=== PATIENT | female | born 1965 | race Hispanic/Latino ===

== ENCOUNTER 2018-03-15 06:11 | Emergency (ER) | payer SELFPAY ==
[2018-03-15] MEDS ORDERED: NA CHLORIDE 0.9% 1,000 ML ONE (06:30)
[2018-03-15] MEDS ORDERED: MORPHINE 4 MG/ML SYR ONE (06:30)
[2018-03-15] MEDS ORDERED: ONDANSETRON 4 MG/2 ML VIAL ONE (06:31)
[2018-03-15 06:54] LABS: Absolute Lymphocytes (CBC) 1.8 K/uL (0.7-4.9); Absolute Monocytes 0.5 K/uL (0.1-1.3); Absolute Neutrophil 6.6 K/uL (1.8-8.0); Eosinophils % 3.7 % (0-4.4); Lymphocytes % 19.5 % (15.3-44.8); MCH 25.8 pg (27.0-35.0); MCV 80.9 fL (80-100); MPV 7.3 fL (7.6-11.3); Monocytes % 5.4 % (3.3-12.3); RBC Red Blood Cell Count 5.32 M/uL (3.86-4.86)
[2018-03-15 07:04] LABS: Potassium 3.4 mEq/L (3.6-5.0)
[2018-03-15 07:10] LABS: Albumin 3.7 g/dL (3.2-5.5); Bilirubin Direct 0.1 mg/dL (0-0.2); Bilirubin Total 0.4 mg/dL (0.3-1.2); Protein, Total 7.7 g/dL (6.0-8.3)
[2018-03-15] MEDS ORDERED: FENTANYL CITR 100 MCG/2 ML ONE (07:14)
--- NOTE | 2018-03-15 09:40 | RAD REPORT ---
EXAM DESCRIPTION: CT - Abdomen Pelvis W Contrast - 03/15/2018 9:21 am CLINICAL HISTORY: Abdominal pain. Right lower quadrant pain for 3 days COMPARISON: None. TECHNIQUE: Computed axial tomography of the abdomen and pelvis was obtained. 100 cc Isovue-300 is ad ministered intravenously. Oral contrast was given. All CT scans are performed using dose optimization technique as appropriate and may include automated exposure control or mA/KV adjustment according to patient size. FINDINGS: Mild fatty infiltration liver is present. Spleen, pancreas, adrenals and kidneys appear unremarkable. The appendix is normal caliber. There is no evidence of diverticulitis A fibroid uterus is seen. A 44 millimeter right ovarian cyst is present. Spondylolysis involves L5 IMPRESSION: 44 millimeter right ovarian cyst without significant free fluid. Followup pelvic ultras ound in a couple months is recommended for re-evaluation. Fibroid uterus
--- NOTE | 2018-03-15 09:49 | ER ---
Nurse's Notes [facility] Name: Alda Paz Age: 52 yrs Sex: Female : 1965 Arrival Date: 03/15/2018 Time: 06:16 Bed 20 Private MD: Diagnosis: Unspecified ovarian cysts Presentation: 03/15 06:25 Presenting complaint: Patient states: RLQ pain x 3 days which radiates to back and down aa1 leg. Pt also states she has not taken her BP medication yet this am but has it with her and will take it now. Transition of care: patient was not received from another setting of care. Onset of symptoms was March 13, 2018. Initial Sepsis Screen: Does the patient meet any 2 criteria? RR > 20 per min. HR > 90 bpm. Yes Does the patient have a suspected source of infection? Yes: Acute abdominal pain. Care prior to arrival: None. 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 - Social history:: Smoking status: Patient/guardian denies using tobacco. Screenin:31 Abuse screen:. Abuse screen: Denies threats or abuse. Denies injuries from another. aa1 Nutritional screening: No deficits noted. Tuberculosis screening: No symptoms or risk factors identified. Fall Risk None identified. Assessment: 06:50 General: Appears uncomfortable, obese, Behavior is anxious, crying. Pain: Complains of bb pain in abdomen Pain currently is 10 out of 10 on a pain scale. Pain began 1 day ago. Neuro: Level of Consciousness is awake, alert, obeys commands, Oriented to person, place, time, situation, Speech is normal, Facial symmetry appears normal. Cardiovascular: Heart tones S1 S2 present Capillary refill < 3 seconds Patient's skin is warm and dry. Pulses are all present. Edema is absent. Respiratory: Airway is patent Respiratory effort is even, unlabored, Respiratory pattern is regular. GI: Abdomen is obese, Bowel sounds present X 4 quads. Abd is soft X 4 quads Abdomen is tender to palpation X 4 quads. : No signs and/or symptoms were reported regarding the genitourinary system. Derm: Skin is pink, warm \T\ dry. Musculoskeletal: Circulation, motion, and sensation intact. 07:02 General: Appears uncomfortable, Behavior is cooperative. Pain: Complains of pain in em right lower quadrant Pain radiates to right low back Pain currently is 7 out of 10 on a pain scale. Neuro: Level of Consciousness is awake, alert, obeys commands, Oriented to person, place, time, situation. Cardiovascular: Capillary refill < 3 seconds Patient's skin is warm and dry. Respiratory: Airway is patent Respiratory effort is even, unlabored, Respiratory pattern is regular, symmetrical. GI: Abdomen is round non-distended. : No signs and/or symptoms were reported regarding the genitourinary system. Derm: Skin is intact, Skin is pink, warm \T\ dry. Musculoskeletal: Circulation, motion, and sensation intact. Range of motion: intact in all extremities. 07:05 Reassessment: I agree with above assessment by ADEBAYO Wallace. iw 07:10 Reassessment: Patient appears in no apparent distress at this time. c/o pain and em morphine not helping, SONAL Chapman notified, new orders received. 07:40 Reassessment: Patient appears in no apparent distress at this time. Patient and/or em family updated on plan of care and expected duration. Pain level reassessed. Patient is alert, oriented x 3, equal unlabored respirations, skin warm/dry/pink. finished drinking PO contrast, CT notified Patient states feeling better. 08:39 Reassessment: Patient appears in no apparent distress at this time. Patient and/or em family updated on plan of care and expected duration. Pain level reassessed. Patient is alert, oriented x 3, equal unlabored respirations, skin warm/dry/pink. Patient states feeling better. 09:34 Reassessment: Patient appears in no apparent distress at this time. Patient and/or em family updated on plan of care and expected duration. Pain level reassessed. Patient is alert, oriented x 3, equal unlabored respirations, skin warm/dry/pink. rates pain 3/10, given warm blanket Patient states feeling better. Vital Signs: 06:30 BP 201 / 102; Pulse 94; Resp 24; Temp 98.5; Pulse Ox 98% on R/A; Weight 97.52 kg; aa1 Height 5 ft. 2 in. (157.48 cm); Pain 9/10; 07:08 BP 182 / 81; Pulse 79; Resp 22; Pulse Ox 97% on R/A; Pain 7/10; em 07:47 BP 140 / 66; Pulse 65; Resp 18; Pulse Ox 95% on R/A; Pain 4/10; em 08:40 BP 138 / 61; Pulse 67; Resp 18; Pulse Ox 99% on R/A; Pain 3/10; em 09:39 BP 155 / 71; Pulse 77; Resp 16; Pulse Ox 99% on R/A; Pain 3/10; em 06:30 Body Mass Index 39.32 (97.52 kg, 157.48 cm) aa1 ED Course: 06:16 Patient arrived in ED. al2 06:19 Ad[facility]NP-C [facility] kb 06:19 oHsea Flowers MD is Attending Physician. kb 06:29 Triage completed. aa1 06:30 Arm band placed on right wrist. Patient placed in an exam room, on a stretcher. aa1 06:31 Patient has correct armband on for positive identification. Bed in low position. Call aa1 light in reach. Pulse ox on. NIBP on. 06:33 Inserted saline lock: 20 gauge in right antecubital area, using aseptic technique. bb Blood collected. 06:35 Initial lab(s) drawn, by ED staff, sent to lab. cc 06:40 Urine collected: clean catch specimen. bb 06:48 Dayanara Recinos, RN is Primary Nurse. bb 07:00 Ultrasound completed. Patient tolerated well. aa4 07:01 Report given to Rodrigo FIORE. bb 07:16 US Transvaginal Study (Probe) In Process Unspecified. EDMS 09:15 CT completed. Patient tolerated procedure well. Patient moved to CT via wheelchair. sj Patient moved back from CT. 09:21 CT Abd/Pelvis - W/Contrast In Process Unspecified. EDMS 10:04 No provider procedures requiring assistance completed. IV discontinued, intact, em bleeding controlled, No redness/swelling at site. Pressure dressing applied. Administered Medications: 06:40 Drug: NS 0.9% 1000 ml Route: IV; Rate: 1000 ml; Site: right antecubital; bb 08:00 Follow up: IV Status: Completed infusion; IV Intake: 1000ml em 06:40 Drug: morphine 4 mg Route: IVP; Site: right antecubital; bb 07:00 Follow up: Response: No adverse reaction; Pain is unchanged, physician notified bb 06:40 Drug: Zofran 4 mg Route: IVP; Site: right antecubital; bb 07:00 Follow up: Response: No adverse reaction bb 07:20 Drug: fentaNYL (PF) 50 mcg Route: IVP; Site: right antecubital; iw 08:02 Follow up: Response: No adverse reaction; Pain is decreased em 09:55 Drug: Potassium Chloride 20 mEq Route: PO; em 10:04 Follow up: Response: Medication administered at discharge. em Intake: 08:00 IV: 1000ml; Total: 1000ml. em Outcome: 09:48 Discharge ordered by MD. kb 10:04 Discharged to home ambulatory. em 10:04 Condition: good 10:04 Discharge instructions given to patient, family, Instructed on discharge instructions, follow up and referral plans. medication usage, Demonstrated understanding of instructions, follow-up care, medications, Prescriptions given X 2. 10:05 Patient left the ED. em Signatures: Dispatcher [employer] EDMS Adela Singh, AIR TECHNICIAN-C AIR TECHNICIAN-CkJoleen Lange RN RN aa1 Lotus Ashley Edgar, MANAGER GROUP HOME MANAGER GROUP HOME em Dayanara Recinos RN RN bb Williams, Irene, RN RN iw Nini Hoff aa4 Trini Hogan, Genesis al2 Corrections: (The following items were deleted from the chart) 09:36 09:34 Reassessment: Patient appears in no apparent distress at this time. Patient em and/or family updated on plan of care and expected duration. Pain level reassessed. Patient is alert, oriented x 3, equal unlabored respirations, skin warm/dry/pink. rates pain 3/10 Patient states feeling better. em
--- NOTE | 2018-03-15 09:49 | EDPHYS ---
Physician Documentation [facility] Name: Alda Paz Age: 52 yrs Sex: Female : 1965 Arrival Date: 03/15/2018 Time: 06:16 Bed 20 Private MD: ED Physician Hosea Flowers HPI: 03/15 06:27 This 52 yrs old Female presents to ER via Unassigned with complaints of kb Abdominal Pain. 06:27 The patient presents with abdominal pain right lower quadrant. Onset: The kb symptoms/episode began/occurred 2 day(s) ago. The symptoms radiate to right back. Associated signs and symptoms: none. The symptoms are described as constant. Modifying factors: The symptoms are alleviated by nothing, the symptoms are aggravated by pressure. Severity of pain: At its worst the pain was moderate in the emergency department the pain is unchanged. The patient has not experienced similar symptoms in the past. The patient has not recently seen a physician. 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 - Social history:: Smoking status: Patient/guardian denies using tobacco. ROS: 06:25 Constitutional: Negative for fever, chills, and weight loss, Cardiovascular: Negative kb for chest pain, palpitations, and edema, Respiratory: Negative for shortness of breath, cough, wheezing, and pleuritic chest pain, Back: Negative for injury and pain, : Negative for injury, bleeding, discharge, and swelling, MS/Extremity: Negative for injury and deformity, Skin: Negative for injury, rash, and discoloration, Neuro: Negative for headache, weakness, numbness, tingling, and seizure. 06:25 Abdomen/GI: Positive for abdominal pain, Negative for nausea, vomiting, and diarrhea, constipation, abdominal cramps, abdominal distension, anorexia. Exam: 06:26 Constitutional: This is a well developed, well nourished patient who is awake, alert, kb and in no acute distress. Head/Face: Normocephalic, atraumatic. Chest/axilla: Normal chest wall appearance and motion. Nontender with no deformity. No lesions are appreciated. Cardiovascular: Regular rate and rhythm with a normal S1 and S2. No gallops, murmurs, or rubs. Normal PMI, no JVD. No pulse deficits. Respiratory: Lungs have equal breath sounds bilaterally, clear to auscultation and percussion. No rales, rhonchi or wheezes noted. No increased work of breathing, no retractions or nasal flaring. Skin: Warm, dry with normal turgor. Normal color with no rashes, no lesions, and no evidence of cellulitis. MS/ Extremity: Pulses equal, no cyanosis. Neurovascular intact. Full, normal range of motion. Neuro: Awake and alert, GCS 15, oriented to person, place, time, and situation. Cranial nerves II-XII grossly intact. Motor strength 5/5 in all extremities. Sensory grossly intact. Cerebellar exam normal. Normal gait. 06:26 Abdomen/GI: Inspection: abdomen appears normal, Bowel sounds: normal, in all quadrants, Palpation: soft, in all quadrants, moderate abdominal tenderness, in the right lower quadrant. Vital Signs: 06:30 BP 201 / 102; Pulse 94; Resp 24; Temp 98.5; Pulse Ox 98% on R/A; Weight 97.52 kg; aa1 Height 5 ft. 2 in. (157.48 cm); Pain 9/10; 07:08 BP 182 / 81; Pulse 79; Resp 22; Pulse Ox 97% on R/A; Pain 7/10; em 07:47 BP 140 / 66; Pulse 65; Resp 18; Pulse Ox 95% on R/A; Pain 4/10; em 08:40 BP 138 / 61; Pulse 67; Resp 18; Pulse Ox 99% on R/A; Pain 3/10; em 09:39 BP 155 / 71; Pulse 77; Resp 16; Pulse Ox 99% on R/A; Pain 3/10; em 06:30 Body Mass Index 39.32 (97.52 kg, 157.48 cm) aa1 MDM: 06:19 Patient medically screened. kb 06:25 Data reviewed: vital signs, nurses notes. Data interpreted: Pulse oximetry: on room air kb is 100 %. Interpretation: normal. 09:48 Counseling: I had a detailed discussion with the patient and/or guardian regarding: the kb historical points, exam findings, and any diagnostic results supporting the discharge/admit diagnosis, lab results, radiology results, the need for outpatient follow up, an OB/Gyne specialist, to return to the emergency department if symptoms worsen or persist or if there are any questions or concerns that arise at home. 03/15 06:25 Order name: Amylase, Serum; Complete Time: 07:15 kb 03/15 06:25 Order name: Basic Metabolic Panel; Complete Time: 07:15 kb 03/15 06:25 Order name: CBC with Diff; Complete Time: 07:15 kb 03/15 06:25 Order name: Hepatic Function; Complete Time: 07:15 kb 03/15 06:25 Order name: Lipase; Complete Time: 07:15 kb 03/15 07:01 Order name: Urine Dipstick--Ancillary (enter results) bb 03/15 06:25 Order name: IV Saline Lock; Complete Time: 06:48 kb 03/15 06:25 Order name: CT Abd/Pelvis - W/Contrast; Complete Time: 09:45 kb 03/15 06:25 Order name: US Transvaginal Study (Probe) kb 03/15 06:25 Order name: Labs collected and sent; Complete Time: 06:47 kb 03/15 06:25 Order name: Urine Dipstick-Ancillary (obtain specimen); Complete Time: 07:03 kb Administered Medications: 06:40 Drug: NS 0.9% 1000 ml Route: IV; Rate: 1000 ml; Site: right antecubital; bb 08:00 Follow up: IV Status: Completed infusion; IV Intake: 1000ml em 06:40 Drug: morphine 4 mg Route: IVP; Site: right antecubital; bb 07:00 Follow up: Response: No adverse reaction; Pain is unchanged, physician notified bb 06:40 Drug: Zofran 4 mg Route: IVP; Site: right antecubital; bb 07:00 Follow up: Response: No adverse reaction bb 07:20 Drug: fentaNYL (PF) 50 mcg Route: IVP; Site: right antecubital; iw 08:02 Follow up: Response: No adverse reaction; Pain is decreased em 09:55 Drug: Potassium Chloride 20 mEq Route: PO; em 10:04 Follow up: Response: Medication administered at discharge. em Disposition: 03/15/18 09:48 Discharged to Home. Impression: Unspecified ovarian cysts. - Condition is Stable. - Discharge Instructions: Ovarian Cyst, [id number]. - Prescriptions for Tramadol 50 mg Oral Tablet - take 1 tablet by ORAL route every 8 hours as needed; 12 tablet. Zofran 4 mg Oral Tablet - take 1 tablet by ORAL route every 6 hours As needed; 20 tablet. - Medication Reconciliation Form, Thank You Letter, Antibiotic Education, Prescription Opioid Use form. - Follow up: Emergency Department; When: As needed; Reason: Worsening of condition. Follow up: Private Physician; When: 2 - 3 days; Reason: Recheck today's complaints, Continuance of care, Re-evaluation by your physician. Addendum: 04/04/2018 19:04 Co-signature as Attending Physician, Hosea Flowers MD. fabiola peterson Signatures: Dispatcher [employer] EDMS Adela Singh, MANAGER BAR-C MANAGER BAR-CkJoleen Lange RN RN aa1 Hosea Flowers MD MD l Rodrigo Lainez, CONTINUITY TESTER CONTINUITY TESTER Dayanara Recinos RN RN bb Alda Marquez RN RN iw Corrections: (The following items were deleted from the chart) 03/15 10:05 09:48 03/15/2018 09:48 Discharged to Home. Impression: Unspecified ovarian cysts. em Condition is Stable. Forms are Medication Reconciliation Form, Thank You Letter, Antibiotic Education, Prescription Opioid Use. Follow up: Emergency Department; When: As needed; Reason: Worsening of condition. Follow up: Private Physician; When: 2 - 3 days; Reason: Recheck today's complaints, Continuance of care, Re-evaluation by your physician. kb
[2018-03-15] MEDS ORDERED: POTASSIUM CL SA 10 MEQ TAB PO ONE (09:51)
--- NOTE | 2018-03-15 10:10 | RAD REPORT ---
EXAM DESCRIPTION: US - Transvaginal Study Probe - 03/15/2018 9:13 am CLINICAL HISTORY: ICD N92.5 heavy menses COMPARISON: 2008 FINDINGS: The uterus measures 14 x 8 x 7cm. A 56 millimeter subserosal fibroid extends off of the ri ght uterine fundus. Additional smaller uterine fibroids are seen. The endometrial stripe is not well visualized secondary to the fibroids. A 44 millimeter right ovarian cyst is present. No significant free fluid is noted. The left ovary was not seen IMPRESSION: Fibroid uterus 4.4 centimeter right ovarian cyst without significant free fluid
[2018-03-15 10:17] VITALS: TEMP 98.5
[2018-03-15 10:21] VITALS: O2SAT 99
[2018-03-15 10:22] VITALS: BP 155/71
[2018-03-15 13:11] LABS: Urine Blood 2+ (NEG); Urine Glucose NEGATIVE (NEG); Urine Protein NEGATIVE (NEG); Urine Specific Gravity >1.030 (1.005-1.030); Urine pH 5.5 (5.0-7.0)
== END 2018-03-15 10:05 | disposition home or self-care (01) ==
LOC: ER 06:11
DX: N83.209 Unspecified ovarian cyst, unspecified side (principal); I10 Essential (primary) hypertension; Z88.6 Allergy status to analgesic agent
CPT/HCPCS: 36415; 74177; 76830; 80048; 80076; 81003; 82150; 83690; 85025; 96361; 96374; 96375; 99284; J2405; J3010; J7030; Q9967

== ENCOUNTER 2018-03-20 05:46 | Emergency (ER) | payer SELFPAY ==
[2018-03-20] MEDS ORDERED: KETOROLAC 30 MG/ML INJ ONE (06:11)
[2018-03-20] MEDS ORDERED: HYDROCODONE/APAP 5/325 MG TAB ONE (06:11)
[2018-03-20 06:38] LABS: Urine RBC 20-50 /HPF (NONE SEEN)
[2018-03-20 06:39] LABS: Urine Bacteria <20 /HPF (<20); Urine Culture Reflex Order NOT NEEDED
[2018-03-20 08:22] LABS: Urine Blood 3+ (NEG); Urine Glucose NEGATIVE (NEG); Urine Protein 1+ (NEG); Urine Specific Gravity 1.025 (1.005-1.030); Urine pH 5.5 (5.0-7.0)
--- NOTE | 2018-03-20 08:37 | ER ---
Nurse's Notes [facility] Name: Alda Paz Age: 52 yrs Sex: Female : 1965 Arrival Date: 03/20/2018 Time: 05:47 Bed 17 Private MD: None, None Diagnosis: Follicular cyst of ovary;Abdominal and pelvic pain Presentation: 03/20 05:57 Presenting complaint: Patient states: "I am having ovary pain on my right side. I was jd3 here on Thursday and they said I had an ovarian cyst.". Transition of care: patient was not received from another setting of care. Onset of symptoms was March 15, 2018. Risk Assessment: Do you want to hurt yourself or someone else? Patient reports no desire to harm self or others. Initial Sepsis Screen: Does the patient meet any 2 criteria? No. Patient's initial sepsis screen is negative. Does the patient have a suspected source of infection? No. Patient's initial sepsis screen is negative. Care prior to arrival: None. 05:57 Method Of Arrival: Ambulatory jd3 05:57 Acuity: KATIE 3 jd3 HORTICULTURAL NURSERY ASSISTANT: 06:00 LMP 03/20/2018 jd3 Historical: - Allergies: 06:00 Aspirin; jd3 - Home Meds: 06:00 lisinopril 20 mg Oral tab 1 tab twice a day [Active]; amlodipine 10 mg tab 1 tab once jd3 daily [Active]; - PMHx: 06:00 Hypertension; jd3 - PSHx: 06:00 left shoulder; jd3 - Immunization history:: Adult Immunizations up to date. - Social history:: Smoking status: Patient/guardian denies using tobacco. - Ebola Screening: : No symptoms or risks identified at this time. Screenin:04 Abuse screen: Denies threats or abuse. Nutritional screening: No deficits noted. jd3 Tuberculosis screening: No symptoms or risk factors identified. Fall Risk Gait- Normal/Bed Rest/Wheelchair (0 pts) Mental Status- Oriented to own ability (0 pts). Total Bosch Fall Scale indicates No Risk (0-24 pts). Assessment: 06:02 General: Appears uncomfortable, Behavior is cooperative, appropriate for age. Pain: jd3 Complains of pain in right femoral area and right inguinal area Pain currently is 10 out of 10 on a pain scale. Quality of pain is described as sharp, Pain began 5 days ago Is continuous. Neuro: Level of Consciousness is awake, alert, obeys commands, Oriented to person, place, time, situation. Cardiovascular: Heart tones S1 S2 present Capillary refill < 3 seconds Patient's skin is warm and dry. Respiratory: Airway is patent Respiratory effort is even, unlabored, Respiratory pattern is regular, symmetrical, Breath sounds are clear bilaterally. GI: Abdomen is round Bowel sounds present X 4 quads. Abd is soft and non tender X 4 quads. Patient currently denies nausea, vomiting. : No signs and/or symptoms were reported regarding the genitourinary system. EENT: No signs and/or symptoms were reported regarding the EENT system. Derm: Skin is intact, Skin is dry, Skin is normal, Skin temperature is warm. Musculoskeletal: Circulation, motion, and sensation intact. Range of motion: intact in all extremities. 07:10 General: Appears in no apparent distress. uncomfortable, Behavior is calm, cooperative. em Pain: Complains of pain in suprapubic area Pain currently is 2 out of 10 on a pain scale. Neuro: Level of Consciousness is awake, alert, obeys commands, Oriented to person, place, time, situation. Cardiovascular: Capillary refill < 3 seconds Patient's skin is warm and dry. Respiratory: Airway is patent Respiratory effort is even, unlabored, Respiratory pattern is regular, symmetrical. GI: Abdomen is round non-distended, Bowel sounds present X 4 quads. Abd is soft X 4 quads Abdomen is tender to palpation in right lower quadrant. : No signs and/or symptoms were reported regarding the genitourinary system. EENT: No signs and/or symptoms were reported regarding the EENT system. Derm: Skin is intact, Skin is pink, warm \\T\\ dry. Musculoskeletal: Range of motion: intact in all extremities. 08:19 Reassessment: Patient appears in no apparent distress at this time. Patient and/or em family updated on plan of care and expected duration. Pain level reassessed. Patient is alert, oriented x 3, equal unlabored respirations, skin warm/dry/pink. 09:15 Reassessment: Patient appears in no apparent distress at this time. Patient and/or em family updated on plan of care and expected duration. Pain level reassessed. Patient is alert, oriented x 3, equal unlabored respirations, skin warm/dry/pink. Vital Signs: 06:00 BP 167 / 84; Pulse 81; Resp 20 S; Temp 98.3(O); Pulse Ox 97% on R/A; Weight 95.25 kg jd3 (R); Height 5 ft. 1 in. (154.94 cm) (R); Pain 10/10; 07:10 BP 148 / 99; Pulse 62; Resp 16; Pulse Ox 95% on R/A; Pain 2/10; em 08:18 BP 137 / 82; Pulse 58; Resp 18; Pulse Ox 96% on R/A; em 09:15 BP 142 / 84; Pulse 81; Resp 16; Pulse Ox 97% on R/A; Pain 4/10; em 06:00 Body Mass Index 39.68 (95.25 kg, 154.94 cm) jd3 ED Course: 05:47 Patient arrived in ED. ds1 05:55 None, None is Private Physician. ds1 05:57 Brayan Pastrana, CECELIA is Primary Nurse. jd3 05:59 Triage completed. jd3 06:01 Arm band placed on Patient placed in an exam room, on a stretcher, on pulse oximetry. jd3 06:03 Juana Johnson [facility]-C [facility]. snw 06:03 Elkin Angel MD is Attending Physician. snw 06:05 Patient has correct armband on for positive identification. Bed in low position. Call jd3 light in reach. Side rails up X 1. Adult w/ patient. 06:58 Warm blanket given. cr4 08:36 Elieser Emerson MD is Referral Physician. snw 08:42 US Transvaginal Study (Probe) In Process Unspecified. EDMS 09:27 No provider procedures requiring assistance completed. Patient did not have IV access em during this emergency room visit. Administered Medications: 06:20 Drug: TORadol 60 mg Route: IM; Site: right deltoid; cr4 06:57 Follow up: Response: No adverse reaction; Pain is decreased cr4 06:20 Drug: [place] 5 mg-325 mg 1 tabs Route: PO; cr4 06:55 Follow up: Response: No adverse reaction; Pain is decreased cr4 Outcome: 08:36 Discharge ordered by . snw 09:28 Discharged to home ambulatory. em 09:28 Condition: good 09:28 Discharge instructions given to patient, Instructed on discharge instructions, follow up and referral plans. medication usage, Demonstrated understanding of instructions, follow-up care, medications, Prescriptions given X 2. 09:28 Patient left the ED. em Addendum: 03/23/2018 13:03 Addendum: Culture Results: Positive urine culture. Phone call Attempt #1 Not a working s s number. Signatures: Dispatcher [employer] EDNC Juana Johnson, ANDRIY COFFEE ROASTER-Josew Rodrigo Lainez, HEAVY LIFT RIGGER HEAVY LIFT RIGGER Vale Ba ds1 Ashley Ornelas RN RN cr4 Rhonda Bullard RN RN ss Brayan Pastrana RN RN jd3 Corrections: (The following items were deleted from the chart) 03/20 06:58 06:56 Response: No adverse reaction; Pain is decreased cr4 cr4
--- NOTE | 2018-03-20 08:37 | EDPHYS ---
Physician Documentation [facility] Name: Alda Paz Age: 52 yrs Sex: Female : 1965 Arrival Date: 03/20/2018 Time: 05:47 Bed 17 Private MD: None, None ED Physician Elkin Angel HPI: 03/20 06:15 This 52 yrs old Female presents to ER via Ambulatory with complaints of Pelvic snw Pain - Ovarian Pain. 06:15 Onset: The symptoms/episode began/occurred 1 week(s) ago, and became worse and became snw persistent. Associated signs and symptoms: The patient has no apparent associated signs or symptoms. Modifying factors: The patient symptoms are alleviated by nothing. The patient has not experienced similar symptoms in the past. The patient has been recently seen by a physician: The patient has been recently seen at the [facility] Emergency Department, this week. 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 - Social history:: Smoking status: Patient/guardian denies using tobacco. - Ebola Screening: : No symptoms or risks identified at this time. ROS: 06:15 Constitutional: Negative for fever, chills, and weight loss, Eyes: Negative for injury, snw pain, redness, and discharge, ENT: Negative for injury, pain, and discharge, Neck: Negative for injury, pain, and swelling, Cardiovascular: Negative for chest pain, palpitations, and edema, Respiratory: Negative for shortness of breath, cough, wheezing, and pleuritic chest pain, : Negative for injury, bleeding, discharge, and swelling, MS/Extremity: Negative for injury and deformity, Skin: Negative for injury, rash, and discoloration, Neuro: Negative for headache, weakness, numbness, tingling, and seizure. 06:15 Abdomen/GI: Positive for abdominal pain, nausea. 06:15 Back: Positive for radiated pain, of the right low back. Exam: 06:13 Constitutional: This is a well developed, well nourished patient who is awake, alert, snw and in obvious pain. Head/Face: Normocephalic, atraumatic. Eyes: Pupils equal round and reactive to light, extra-ocular motions intact. Lids and lashes normal. Conjunctiva and sclera are non-icteric and not injected. Cornea within normal limits. Periorbital areas with no swelling, redness, or edema. ENT: Nares patent. No nasal discharge, no septal abnormalities noted. Tympanic membranes are normal and external auditory canals are clear. Oropharynx with no redness, swelling, or masses, exudates, or evidence of obstruction, uvula midline. Mucous membranes moist. Neck: Trachea midline, no thyromegaly or masses palpated, and no cervical lymphadenopathy. Supple, full range of motion without nuchal rigidity, or vertebral point tenderness. No Meningismus. Chest/axilla: Normal chest wall appearance and motion. Nontender with no deformity. No lesions are appreciated. Cardiovascular: Regular rate and rhythm with a normal S1 and S2. No gallops, murmurs, or rubs. Normal PMI, no JVD. No pulse deficits. Respiratory: Lungs have equal breath sounds bilaterally, clear to auscultation and percussion. No rales, rhonchi or wheezes noted. No increased work of breathing, no retractions or nasal flaring. Skin: Warm, dry with normal turgor. Normal color with no rashes, no lesions, and no evidence of cellulitis. MS/ Extremity: Pulses equal, no cyanosis. Neurovascular intact. Full, normal range of motion. Neuro: Awake and alert, GCS 15, oriented to person, place, time, and situation. Cranial nerves II-XII grossly intact. Motor strength 5/5 in all extremities. Sensory grossly intact. Cerebellar exam normal. Normal gait. 06:13 Abdomen/GI: Inspection: abdomen appears normal, Bowel sounds: normal, Palpation: moderate abdominal tenderness, in the suprapubic area. 06:13 Back: pain, that is moderate, of the right low back. Vital Signs: 06:00 BP 167 / 84; Pulse 81; Resp 20 S; Temp 98.3(O); Pulse Ox 97% on R/A; Weight 95.25 kg jd3 (R); Height 5 ft. 1 in. (154.94 cm) (R); Pain 10/10; 07:10 BP 148 / 99; Pulse 62; Resp 16; Pulse Ox 95% on R/A; Pain 2/10; em 08:18 BP 137 / 82; Pulse 58; Resp 18; Pulse Ox 96% on R/A; em 09:15 BP 142 / 84; Pulse 81; Resp 16; Pulse Ox 97% on R/A; Pain 4/10; em 06:00 Body Mass Index 39.68 (95.25 kg, 154.94 cm) jd3 MDM: 06:03 Patient medically screened. snw 07:40 Data reviewed: vital signs, nurses notes. Data interpreted: Pulse oximetry: on 2L(s) snw per nasal canula, is 95 %. Interpretation: acceptable. 07:41 Counseling: I had a detailed discussion with the patient and/or guardian regarding: the snw historical points, exam findings, and any diagnostic results supporting the discharge/admit diagnosis, the presence of at least one elevated blood pressure reading (>120/80) during this emergency department visit, lab results, radiology results, the need for outpatient follow up, for definitive care. Awaiting: Ultrasound results. 09:09 ED course: Pt frustrated because she does not wish to take pain medications. Explained snw to pt that at this time her only emergency is pain that I am happy to try to alleviate. Pt states something else should be done, admit her, take her to surgery, or something else besides pain medications. Encouraged multiple times to follow up with [employer]. 03/20 06:13 Order name: Urine Culture [facility] 03/20 06:13 Order name: Urine Microscopic Only; Complete Time: 06:40 snw 03/20 06:05 Order name: US Transvaginal Study (Probe) [facility] 03/20 06:29 Order name: Urine Dipstick--Ancillary (enter results); Complete Time: 08:37 rg2 03/20 06:13 Order name: Urine Dipstick-Ancillary (obtain specimen); Complete Time: 06:28 [facility] 03/20 06:47 Order name: Misc. Order: pt needs to be in a gown; Complete Time: 06:49 snw Administered Medications: 06:20 Drug: TORadol 60 mg Route: IM; Site: right deltoid; cr4 06:57 Follow up: Response: No adverse reaction; Pain is decreased cr4 06:20 Drug: Ballard 5 mg-325 mg 1 tabs Route: PO; cr4 06:55 Follow up: Response: No adverse reaction; Pain is decreased cr4 Disposition: 03/20/18 08:36 Discharged to Home. Impression: Follicular cyst of ovary, Abdominal and pelvic pain. - Condition is Stable. - Discharge Instructions: Ovarian Cyst, Abdominal Pain, Women, Transvaginal Ultrasound. - Prescriptions for Zofran 4 mg Oral Tablet - take 1 tablet by ORAL route every 12 hours As needed; 6 tablet. Diclofenac Sodium 75 mg Oral Tablet Sustained Release - take 1 tablet by ORAL route 2 times per day; 30 tablet. - Medication Reconciliation Form, Thank You Letter, Antibiotic Education, Prescription Opioid Use form. - Follow up: Elieser Emerson MD; When: 2 - 3 days; Reason: Recheck today's complaints, Continuance of care, Re-evaluation by your physician. Addendum: 03/23/2018 14:50 Co-signature as Attending Physician, Elkin Angel MD. g s Signatures: Dispatcher [employer] EDMS Juana Johnson, PRODUCTION DEPARTMENT SUPERVISOR-C PRODUCTION DEPARTMENT SUPERVISOR-Csnw Rodrigo Lainez, MAINTENANCE DIRECTOR MAINTENANCE DIRECTOR Ashley Koch, RN RN cr4 Elkin Angel MD MD gs Davies, Jonathon RN RN jd3 Corrections: (The following items were deleted from the chart) 03/20 07:42 07:40 Counseling: I had a detailed discussion with the patient and/or guardian [facility] regarding: the historical points, exam findings, and any diagnostic results supporting the discharge/admit diagnosis, the presence of at least one elevated blood pressure reading (>120/80) during this emergency department visit, lab results, the need for further work-up and treatment in the hospital, [facility] 07:42 07:40 Physician consultation: Fede Street DO was called at 07:41, was contacted at snw 07:41, regarding admission, to the telemetry unit. snw 09:28 08:36 03/20/2018 08:36 Discharged to Home. Impression: Follicular cyst of ovary; em Abdominal and pelvic pain. Condition is Stable. Forms are Medication Reconciliation Form, Thank You Letter, Antibiotic Education, Prescription Opioid Use. Follow up: Elieser Emerson; When: 2 - 3 days; Reason: Recheck today's complaints, Continuance of care, Re-evaluation by your physician. snw
[2018-03-20 09:33] VITALS: TEMP 98.3
[2018-03-20 09:37] VITALS: BP 142/84; O2SAT 97
--- NOTE | 2018-03-20 10:18 | RAD REPORT ---
EXAM DESCRIPTION: US - Transvaginal Study Probe - 03/20/2018 8:41 am CLINICAL HISTORY: Pelvic pain. COMPARISON: 03/15/2018 FINDINGS: Multiple fibroids are again noted in the uterus, unchanged since recent comparative study. The uterus measures 13.9 x 8.4 x 7.2 cm. The endometrial stripe measures 12 mm, normal. The left ovary was not well identified sonographically. The right ovary is normal size measuring 5.4 x 3.9 x 2.9 cm containing a 3.4 x 2.5 cm cyst. Normal blood flow seen to the right ovary with Doppler technique. No pelvic ascites. IMPRESSION: Stable fibroid uterus. Small right ovarian cyst as detailed.
== END 2018-03-20 09:28 | disposition home or self-care (01) ==
LOC: ER 05:46
DX: N83.00 Follicular cyst of ovary, unspecified side (principal); I10 Essential (primary) hypertension; Z88.6 Allergy status to analgesic agent
CPT/HCPCS: 76830; 81003; 81015; 87077; 87086; 87088; 87186; 96372; 99284

== ENCOUNTER 2018-05-02 06:11 | Emergency (ER) | payer SELFPAY ==
[2018-05-02] MEDS ORDERED: CODEINE 30MG/APAP 300MG TAB ONE ×2 (06:39→06:46)
[2018-05-02] MEDS ORDERED: KETOROLAC 30 MG/ML INJ ONE (06:40)
--- NOTE | 2018-05-02 06:59 | EDPHYS ---
Physician Documentation [facility] Name: Alda Paz Age: 52 yrs Sex: Female : 1965 Arrival Date: 05/02/2018 Time: 06:14 Bed 6 Private MD: ED Physician Josiah Walton HPI: 05/02 06:30 This 52 yrs old Female presents to ER via Ambulatory with complaints of Ear cp Pain, Headache. 06:30 The patient presents with pain, that is acute, swelling, tenderness. The complaints cp affect the right ear and left ear. 06:30 Onset: The symptoms/episode began/occurred yesterday. Associated signs and symptoms: cp Pertinent positives: sore throat, Pertinent negatives: cough, fever, sinus trouble, vomiting. Severity of symptoms: in the emergency department the symptoms are unchanged despite home interventions. 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 - Ebola Screening: : Patient negative for fever greater than or equal to 101.5 degrees Fahrenheit, and additional compatible Ebola Virus Disease symptoms. - Social history:: Smoking status: Patient/guardian denies using tobacco. ROS: 06:35 Eyes: Negative for injury, pain, redness, and discharge. cp 06:35 Constitutional: Negative for body aches, chills, fever, poor PO intake. 06:35 ENT: Positive for ear pain, sore throat, Negative for drainage from ear(s), difficulty swallowing, difficulty handling secretions. 06:35 Cardiovascular: Negative for chest pain, edema, palpitations. 06:35 Respiratory: Negative for cough, shortness of breath, wheezing. 06:35 Abdomen/GI: Negative for abdominal pain, nausea, vomiting, and diarrhea. 06:35 Skin: Negative for cellulitis, rash. 06:35 Neuro: Positive for headache, Negative for altered mental status, dizziness, weakness. 06:35 All other systems are negative. Exam: 06:42 Constitutional: The patient appears in no acute distress, alert, awake, non-toxic, well cp developed, well nourished, uncomfortable. 06:42 Head/Face: Normocephalic, atraumatic. cp 06:42 Eyes: Periorbital structures: appear normal, Pupils: equal, round, and reactive to light and accomodation, Extraocular movements: intact throughout, Conjunctiva: normal, no exudate, no injection, Sclera: no appreciated abnormality, Lids and lashes: appear normal, bilaterally. 06:42 ENT: External ear(s): are unremarkable, Ear canal(s): purulent discharge, that is moderate, bilaterally, swelling, that is severe, bilaterally, TM's: not visable, because of discharge, EAC swelling, Nose: is normal, Mouth: is normal, Posterior pharynx: is normal, airway is patent, no erythema, no exudate, Voice: 06:42 Neck: ROM/movement: is normal, is supple, without pain, no range of motions limitations, no meningismus, no nuchal rigidity, Lymph nodes: no appreciated lymphadenopathy. 06:42 Chest/axilla: Inspection: normal, Palpation: is normal, no crepitus, no tenderness. 06:42 Cardiovascular: Rate: normal, Rhythm: regular. 06:42 Respiratory: the patient does not display signs of respiratory distress, Respirations: normal, no use of accessory muscles, no retractions, no splinting, no tachypnea, labored breathing, is not present, Breath sounds: are clear throughout, no decreased breath sounds, no stridor, no wheezing. 06:42 Abdomen/GI: Exam negative for discomfort, distension, guarding, Inspection: abdomen appears normal. 06:42 Skin: cellulitis, is not appreciated, no rash present. Vital Signs: 06:30 BP 176 / 106; Pulse 97; Resp 18; Temp 99.3; Pulse Ox 99% ; Weight 95.25 kg; Height 5 ea ft. 2 in. (157.48 cm); Pain 9/10; 07:08 BP 179 / 94; Pulse 90; Resp 18 S; Pulse Ox 100% on R/A; Pain 3/10; ea 06:30 Body Mass Index 38.41 (95.25 kg, 157.48 cm) ea MDM: 06:19 Patient medically screened. cp 06:30 Differential diagnosis: otitis media, otitis externa, ruptured TM, foreign body, cp cerumen impaction. 06:57 Data reviewed: vital signs, nurses notes, and as a result, I will discharge patient. cp Administered Medications: 06:42 Drug: Tylenol #3 (300 mg-30 mg) 2 tabs Route: PO; ea 07:09 Follow up: Response: No adverse reaction; Pain is decreased ea 06:42 Drug: TORadol 60 mg Route: IM; Site: left gluteus; ea 07:09 Follow up: Response: No adverse reaction; Pain is decreased ea Disposition: 05/02/18 06:58 Discharged to Home. Impression: Otitis externa in other diseases classified elsewhere, bilateral. - Condition is Stable. - Discharge Instructions: Otitis Externa. - Prescriptions for Cipro 500 mg Oral Tablet - take 1 tablet by ORAL route every 12 hours for 10 days; 20 tablet. Ciprodex 0.3- 0.1 % Otic Drops, Suspension - instill 4 drops by OTIC route every 12 hours for 7 days , for ears ONLY. instill drops in both ears as directed; 1 Container. Naprosyn 500 mg Oral Tablet - take 1 tablet by ORAL route 2 times per day take with food; 30 tablet. Tylenol- Codeine #3 300-30 mg Oral Tablet - take 2 tablets by ORAL route every 6 hours As needed; 20 tablet. - Medication Reconciliation Form, Thank You Letter, Antibiotic Education, Prescription Opioid Use form. - Follow up: Angelica Romeo MD; When: 2 - 3 days; Reason: Recheck today's complaints. - Problem is new. - Symptoms have improved. Addendum: 05/03/2018 09:27 Co-signature as Attending Physician, Josiah Walton MD I agree with the assessment and c walker plan of care. Signatures: Josiah Walton MD MD cha Page, Corey, PA PA cp Antunez, Elena, RN RN ea Davies, Jonathon, RN RN jd3 Corrections: (The following items were deleted from the chart) 05/02 07:09 06:58 05/02/2018 06:58 Discharged to Home. Impression: Otitis externa in other diseases ea classified elsewhere, bilateral. Condition is Stable. Forms are Medication Reconciliation Form, Thank You Letter, Antibiotic Education, Prescription Opioid Use. Follow up: Angelica Romeo; When: 2 - 3 days; Reason: Recheck today's complaints. Problem is new. Symptoms have improved. cp
--- NOTE | 2018-05-02 06:59 | ER ---
Nurse's Notes [facility] Name: Alda Paz Age: 52 yrs Sex: Female : 1965 Arrival Date: 05/02/2018 Time: 06:14 Bed 6 Private MD: Diagnosis: Otitis externa in other diseases classified elsewhere, bilateral Presentation: 05/02 06:23 Presenting complaint: Patient states: Both ears have been hurting since yesterday, pt ea reports the right ear started hurting worse tonight. Pt reports the pain is causing her to have a headache. Transition of care: patient was not received from another setting of care. Onset of symptoms was May 02, 2018. Risk Assessment: Do you want to hurt yourself or someone else? Patient reports no desire to harm self or others. Initial Sepsis Screen: Does the patient meet any 2 criteria? No. Patient's initial sepsis screen is negative. Does the patient have a suspected source of infection? No. Patient's initial sepsis screen is negative. Care prior to arrival: Medication(s) given: Motrin. 06:23 Method Of Arrival: Ambulatory ea 06:23 Acuity: KATIE 4 ea 06:26 Risk Assessment: Do you want to hurt yourself or someone else? Patient reports no jd3 desire to harm self or others. Initial Sepsis Screen: Does the patient meet any 2 criteria? HR > 90 bpm. Yes Does the patient have a suspected source of infection? No. Patient's initial sepsis screen is negative. Care prior to arrival: None. Triage Assessment: 06:27 General: Appears uncomfortable, Behavior is calm, cooperative, appropriate for age. ea Pain: Complains of pain in left ear and right ear Pain currently is 9 out of 10 on a pain scale. Quality of pain is described as aching. EENT: Reports pain in left ear and right ear. Neuro: Level of Consciousness is awake, alert, obeys commands, Oriented to person, place, time, situation. Cardiovascular: Patient's skin is warm and dry. Respiratory: Airway is patent Respiratory effort is even, unlabored, Respiratory pattern is regular, symmetrical. GI: No signs and/or symptoms were reported involving the gastrointestinal system. : No signs and/or symptoms were reported regarding the genitourinary system. Derm: Skin is pink, warm \T\ dry. 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 - Ebola Screening: : Patient negative for fever greater than or equal to 101.5 degrees Fahrenheit, and additional compatible Ebola Virus Disease symptoms. - Social history:: Smoking status: Patient/guardian denies using tobacco. Screenin:23 Abuse screen: Denies threats or abuse. Nutritional screening: No deficits noted. jd3 Tuberculosis screening: No symptoms or risk factors identified. Fall Risk Ambulatory Aid- None/Bed Rest/Nurse Assist (0 pts). Gait- Normal/Bed Rest/Wheelchair (0 pts) Mental Status- Oriented to own ability (0 pts). Total Bosch Fall Scale indicates No Risk (0-24 pts). Assessment: 06:21 General: Appears uncomfortable, Behavior is cooperative. Pain: Complains of pain in jd3 right ear and left ear Pain currently is 9 out of 10 on a pain scale. Neuro: Level of Consciousness is awake, alert, obeys commands, Oriented to person, place, time, situation. Cardiovascular: Capillary refill < 3 seconds Patient's skin is warm and dry. Respiratory: Airway is patent Respiratory effort is even, unlabored, Respiratory pattern is regular, symmetrical. GI: No signs and/or symptoms were reported involving the gastrointestinal system. : No signs and/or symptoms were reported regarding the genitourinary system. EENT: Tympanic membrane reddened on right ear and left ear Ear canal w/ drainage noted from right ear and left ear. Derm: Skin is intact, Skin is dry, Skin is normal, Skin temperature is warm. Musculoskeletal: Circulation, motion, and sensation intact. Range of motion: intact in all extremities. 07:06 Reassessment: Patient and/or family updated on plan of care and expected duration. Pain ea level reassessed. Patient is alert, oriented x 3, equal unlabored respirations, skin warm/dry/pink. Discharge instruction given to patient, verbalized the understanding instruction. Vital Signs: 06:30 BP 176 / 106; Pulse 97; Resp 18; Temp 99.3; Pulse Ox 99% ; Weight 95.25 kg; Height 5 ea ft. 2 in. (157.48 cm); Pain 9/10; 07:08 BP 179 / 94; Pulse 90; Resp 18 S; Pulse Ox 100% on R/A; Pain 3/10; ea 06:30 Body Mass Index 38.41 (95.25 kg, 157.48 cm) ea ED Course: 06:14 Patient arrived in ED. al2 06:16 Brayan Pastrana, RN is Primary Nurse. jd3 06:18 Josiah Da Silva PA is PHCP. cp 06:18 Josiah Walton MD is Attending Physician. cp 06:25 Patient has correct armband on for positive identification. Bed in low position. Call jd3 light in reach. Side rails up X 1. Adult w/ patient. 06:27 Triage completed. ea 06:27 Arm band placed on. jd3 06:58 Angelica Romeo MD is Referral Physician. cp 07:07 No provider procedures requiring assistance completed. Patient did not have IV access ea during this emergency room visit. Administered Medications: 06:42 Drug: Tylenol #3 (300 mg-30 mg) 2 tabs Route: PO; ea 07:09 Follow up: Response: No adverse reaction; Pain is decreased ea 06:42 Drug: TORadol 60 mg Route: IM; Site: left gluteus; ea 07:09 Follow up: Response: No adverse reaction; Pain is decreased ea Outcome: 06:58 Discharge ordered by MD. cp 07:07 Discharged to home ambulatory, with family. ea 07:07 Condition: improved 07:07 Discharge instructions given to patient, Instructed on discharge instructions, follow up and referral plans. medication usage, Demonstrated understanding of instructions, follow-up care, medications, Prescriptions given X 4. 07:09 Patient left the ED. ea Signatures: Josiah Da Silva PA PA cp Antunez, Elena RN Brayan Lux ea RN RN Genesis Perdomo al2
[2018-05-02 07:13] VITALS: TEMP 99.3
[2018-05-02 07:14] VITALS: BP 179/94; O2SAT 100
== END 2018-05-02 07:09 | disposition home or self-care (01) ==
LOC: ER 06:11
DX: H60.8X3 Other otitis externa, bilateral (principal); I10 Essential (primary) hypertension; Z88.6 Allergy status to analgesic agent
CPT/HCPCS: 96372; 99283

== ENCOUNTER 2018-06-20 23:57 | Emergency (ER) | payer SELFPAY ==
--- NOTE | 2018-06-21 00:41 | ER ---
Nurse's Notes [facility] Name: Alda Paz Age: 52 yrs Sex: Female : 1965 Arrival Date: 06/21/2018 Time: 00:01 Bed 26 Private MD: Diagnosis: Unspecified otitis externa, right ear Presentation: 06/21 00:13 Presenting complaint: Patient states: that she is having severe right ear pain that fc started yesterday. No noted drainage and she is not running fever. Pt took antibiotic (Cipro) that she had left over from last ear infection 1-2 months ago. Transition of care: patient was not received from another setting of care. Onset of symptoms was June 20, 2018. Risk Assessment: Do you want to hurt yourself or someone else? Patient reports no desire to harm self or others. Initial Sepsis Screen: Does the patient meet any 2 criteria? No. Patient's initial sepsis screen is negative. Does the patient have a suspected source of infection? No. Patient's initial sepsis screen is negative. Care prior to arrival: Medication(s) given: cipro 500 mg taken at 2000. 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 - Social history:: Smoking status: Patient/guardian denies using tobacco. - Ebola Screening: : Patient negative for fever greater than or equal to 101.5 degrees Fahrenheit, and additional compatible Ebola Virus Disease symptoms Patient denies exposure to infectious person Patient denies travel to an Ebola-affected area in the 21 days before illness onset. - Family history:: not pertinent. - Hospitalizations: : No recent hospitalization is reported. Screenin:44 Abuse screen: Denies threats or abuse. Nutritional screening: No deficits noted. ad1 Tuberculosis screening: No symptoms or risk factors identified. Fall Risk None identified. Assessment: 00:44 General: Appears uncomfortable, Behavior is agitated. Pain: Complains of pain in right ad1 ear Pain currently is 10 out of 10 on a pain scale. Pain began 4 hours ago. Cardiovascular: Patient's skin is warm and dry. Respiratory: Airway is patent Respiratory effort is even, unlabored, Respiratory pattern is regular. EENT: Ear canal w/ drainage noted from right ear swelling.. Vital Signs: 00:16 BP 176 / 105; Pulse 77; Resp 18; Temp 98.0(TE); Pulse Ox 97% on R/A; Weight 99.79 kg fc (R); Height 5 ft. 3 in. (160.02 cm) (R); Pain 10/10; 01:35 BP 179 / 96; Pulse 79; Resp 18; Pulse Ox 100% ; ad1 00:16 Body Mass Index 38.97 (99.79 kg, 160.02 cm) ED Course: 00:01 Patient arrived in ED. es 00:15 Triage completed. fc 00:16 Arm band placed on Patient placed in an exam room, on a stretcher. 00:19 Daniel Hickman MD is Attending Physician. rn 00:40 Angelica Romeo MD is Referral Physician. rn 00:44 Patient has correct armband on for positive identification. ad1 01:37 No provider procedures requiring assistance completed. Patient did not have IV access ad1 during this emergency room visit. Administered Medications: 01:06 Drug: Demerol 25 mg Route: IM; Site: right deltoid; ad1 01:40 Follow up: Response: No adverse reaction ad1 01:07 Drug: Rocephin (cefTRIAXone) 1 grams Route: IM; Site: right gluteus; ad1 01:40 Follow up: Response: No adverse reaction ad1 Outcome: 00:40 Discharge ordered by . rn 01:37 Discharged to home ambulatory. ad1 01:37 Condition: good 01:37 Discharge instructions given to patient, Instructed on discharge instructions, follow up and referral plans. medication usage, Demonstrated understanding of instructions, follow-up care, medications, Prescriptions given X 1. 01:39 Patient left the ED. ad1 Signatures: Marlena Francis Felicia, RN RN Daniel Hickman MD MD rn DelToro, Anna, RN RN ad1
--- NOTE | 2018-06-21 00:41 | EDPHYS ---
Physician Documentation [facility] Name: Alda Paz Age: 52 yrs Sex: Female : 1965 Arrival Date: 06/21/2018 Time: 00:01 Bed 26 Private MD: ED Physician Daniel Hickman HPI: 06/21 00:37 This 52 yrs old Female presents to ER via Ambulatory with complaints of Ear rn Pain. 00:37 The patient presents with pain. The complaints affect the right ear. Onset: The rn symptoms/episode began/occurred yesterday. Modifying factors: The symptoms are alleviated by nothing, the symptoms are aggravated by nothing. Severity of symptoms: At their worst the symptoms were moderate in the emergency department the symptoms are unchanged. The patient has experienced a previous episode. The patient has not recently seen a physician. 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 - Social history:: Smoking status: Patient/guardian denies using tobacco. - Ebola Screening: : Patient negative for fever greater than or equal to 101.5 degrees Fahrenheit, and additional compatible Ebola Virus Disease symptoms Patient denies exposure to infectious person Patient denies travel to an Ebola-affected area in the 21 days before illness onset. - Family history:: not pertinent. - Hospitalizations: : No recent hospitalization is reported. ROS: 00:37 Constitutional: Negative for fever, chills, and weight loss, Eyes: Negative for injury, rn pain, redness, and discharge, ENT: + right ear pain Neck: Negative for injury, pain, and swelling, Cardiovascular: Negative for chest pain, palpitations, and edema, Respiratory: Negative for shortness of breath, cough, wheezing, and pleuritic chest pain, Abdomen/GI: Negative for abdominal pain, nausea, vomiting, diarrhea, and constipation, MS/Extremity: Negative for injury and deformity, Skin: Negative for injury, rash, and discoloration, Neuro: Negative for headache, weakness, numbness, tingling, and seizure. Exam: 00:37 Constitutional: This is a well developed, well nourished patient who is awake, alert, rn holding right ear ENT: Right canal with swelling and mild discharge, unable to visualize TM, + painful manipulation of external ear Neuro: Awake and alert, GCS 15, oriented to person, place, time, and situation. Cranial nerves II-XII grossly intact. Motor strength 5/5 in all extremities. Sensory grossly intact. Cerebellar exam normal. Normal gait. Vital Signs: 00:16 BP 176 / 105; Pulse 77; Resp 18; Temp 98.0(TE); Pulse Ox 97% on R/A; Weight 99.79 kg fc (R); Height 5 ft. 3 in. (160.02 cm) (R); Pain 10/10; 01:35 BP 179 / 96; Pulse 79; Resp 18; Pulse Ox 100% ; ad1 00:16 Body Mass Index 38.97 (99.79 kg, 160.02 cm) MDM: 00:19 Patient medically screened. rn 00:37 Differential diagnosis: otitis media, otitis externa. Data reviewed: vital signs, rn nurses notes, and as a result, I will discharge patient. Counseling: I had a detailed discussion with the patient and/or guardian regarding: the historical points, exam findings, and any diagnostic results supporting the discharge/admit diagnosis, the need for outpatient follow up, to return to the emergency department if symptoms worsen or persist or if there are any questions or concerns that arise at home. Special discussion: I discussed with the patient/guardian in detail that at this point there is no indication for admission to the hospital. It is understood, however, that if the symptoms persist or worsen the patient needs to return immediately for re-evaluation. Based on the history and exam findings, there is no indication for further emergent testing or inpatient evaluation. I discussed with the patient/guardian the need to see the ENT specialist for further evaluation of the symptoms. Administered Medications: 01:06 Drug: Demerol 25 mg Route: IM; Site: right deltoid; ad1 01:40 Follow up: Response: No adverse reaction ad1 01:07 Drug: Rocephin (cefTRIAXone) 1 grams Route: IM; Site: right gluteus; ad1 01:40 Follow up: Response: No adverse reaction ad1 Disposition: 06/21/18 00:40 Discharged to Home. Impression: Unspecified otitis externa, right ear. - Condition is Stable. - Discharge Instructions: Ear Drops, Adult, Otitis Externa. - Prescriptions for Cortisporin- TC 3.3-3-10-0.5 mg/mL Otic Suspension - instill 4 drop by OTIC route every 6 hours; 1 bottle. - Medication Reconciliation Form, Thank You Letter, Antibiotic Education, Prescription Opioid Use form. - Follow up: Angelica Romeo; When: As needed; Reason: Recheck today's complaints, Re-evaluation by your physician. - Problem is new. - Symptoms have improved. Signatures: Rosa M Conteh RN RN fc Daniel Hickman MD MD rn DelToro, Anna, RN RN ad1 Corrections: (The following items were deleted from the chart) 01:39 00:40 06/21/2018 00:40 Discharged to Home. Impression: Unspecified otitis externa, ad1 right ear. Condition is Stable. Discharge Instructions: Ear Drops, Adult, Otitis Externa. Prescriptions for Cortisporin-TC 3.3-3-10-0.5 mg/mL Otic Suspension - instill 4 drop by OTIC route every 6 hours; 1 bottle. and Forms are Medication Reconciliation Form, Thank You Letter, Antibiotic Education, Prescription Opioid Use. Follow up: Angelica Romeo; When: As needed; Reason: Recheck today's complaints, Re-evaluation by your physician. Problem is new. Symptoms have improved. rn
[2018-06-21] MEDS ORDERED: MEPERIDINE HCL 50 MG/ML AMP ONE (00:58)
[2018-06-21] MEDS ORDERED: CEFTRIAXONE 1000 MG/VIAL ONE (00:58)
[2018-06-21] MEDS ORDERED: LIDOCAINE 1% MPF 2 ML AMPULE ONE (00:58)
[2018-06-21 01:51] VITALS: TEMP 98
[2018-06-21 01:52] VITALS: BP 179/96; O2SAT 100
== END 2018-06-21 01:39 | disposition home or self-care (01) ==
LOC: ER 23:57
DX: H60.91 Unspecified otitis externa, right ear (principal); I10 Essential (primary) hypertension; Z88.6 Allergy status to analgesic agent
CPT/HCPCS: 96372; 99283; J2001; J2175

== ENCOUNTER 2019-06-07 17:38 | Emergency (ER) | payer SELFPAY ==
[2019-06-07 18:39] LABS: Absolute Lymphocytes (CBC) 1.8 K/uL (0.7-4.9); Basophils % 0.7 % (0-1.3); Hematocrit 41.1 % (36.0-45.0); Lymphocytes % 20.2 % (15.3-44.8); MPV 6.9 fL (7.6-11.3)
[2019-06-07] MEDS ORDERED: FENTANYL CITR 100 MCG/2 ML ONE (18:44)
[2019-06-07] MEDS ORDERED: NEOMY/POLY/HC 1% OTIC DROPS ONE (18:46)
[2019-06-07] MEDS ORDERED: VANCOMYCIN 1 GM/VIAL ONE (18:46)
[2019-06-07] MEDS ORDERED: NA CHLORIDE 0.9% 250 ML ONE ×2 (18:46→20:22)
[2019-06-07] MEDS ORDERED: NA CHLORIDE 0.9% 1,000 ML ONE (18:46)
[2019-06-07 19:02] LABS: Potassium 3.4 mmol/L (3.5-5.1)
[2019-06-07 19:13] LABS: Protime INR 1.04
--- NOTE | 2019-06-07 19:35 | RAD REPORT ---
EXAM DESCRIPTION: CT - Soft Tissue Neck W/Contr CLINICAL HISTORY: FACIAL PAIN Right-sided neck pain COMPARISON: <Comparisons> TECHNIQUE All CT scans are performed using dose optimization technique as appropriate and may includ e automated exposure control or mA/KV adjustment according to patient size. FINDINGS: Significant soft tissue thickening is seen involving the right external ear with phlegmono us inflammation present. Fluid is present in the external ear canal, middle ear and right mastoid air cell compatible with right otomastoiditis. The dural venous sinuses and internal jugular vein on the right appear patent. Multiple mildly enlarged and reactive lymph nodes are present throughout neck. No intrinsic neck mass seen. No drainable abscess identified. IMPRESSION: Moderately severe right otomastoiditis.
[2019-06-07] MEDS ORDERED: HYDROMORPHONE HCL 1 MG/ML INJ ONE (20:14)
[2019-06-07] MEDS ORDERED: CEFTAZIDIME 1 GM VIAL ONE (20:22)
--- NOTE | 2019-06-07 21:07 | ER ---
Nurse's Notes [facility] Name: Alda Paz Age: 53 yrs Sex: Female : 1965 Arrival Date: 06/07/2019 Time: 17:40 Bed 27 Private MD: Diagnosis: Otorrhea, right ear;Mastoiditis and related conditions;Otitis externa Presentation: 06/07 17:55 Presenting complaint: Patient states: ear pain in right ear since Thursday, I went to la1 the clinic and my BP was too high so they sent me here. Transition of care: patient was not received from another setting of care. Onset of symptoms was June 07, 2019. Risk Assessment: Do you want to hurt yourself or someone else? Patient reports no desire to harm self or others. Initial Sepsis Screen: Does the patient meet any 2 criteria? No. Patient's initial sepsis screen is negative. Does the patient have a suspected source of infection? No. Patient's initial sepsis screen is negative. Care prior to arrival: None. 17:55 Method Of Arrival: Ambulatory la1 17:55 Acuity: KATIE 3 la1 Historical: - Allergies: 17:56 Aspirin; la1 - Home Meds: 17:56 lisinopril 20 mg Oral tab 1 tab twice a day [Active]; amlodipine 10 mg tab 1 tab once la1 daily [Active]; - PMHx: 17:56 Hypertension; la1 - Immunization history:: Adult Immunizations up to date. - Social history:: Smoking status: Patient/guardian denies using tobacco. - Ebola Screening: : No symptoms or risks identified at this time. Screenin:30 Abuse screen: Denies threats or abuse. Denies injuries from another. Nutritional ca1 screening: No deficits noted. Tuberculosis screening: No symptoms or risk factors identified. Fall Risk None identified. Assessment: 18:30 General: Appears in no apparent distress. uncomfortable, Behavior is calm, cooperative, ca1 appropriate for age. Pain: Complains of pain in right ear Pain radiates to neck Pain currently is 8 out of 10 on a pain scale. Quality of pain is described as throbbing, Pain began 2-3 days ago. Is intermittent. Neuro: Level of Consciousness is awake, alert, obeys commands, Oriented to person, place, time, situation. Cardiovascular: Heart tones S1 S2 present Capillary refill < 3 seconds Patient's skin is warm and dry. Respiratory: Airway is patent Respiratory effort is even, unlabored, Respiratory pattern is regular, symmetrical, Breath sounds are clear bilaterally. GI: Abdomen is round non-distended, Bowel sounds present X 4 quads. Abd is soft and non tender X 4 quads. : No deficits noted. No signs and/or symptoms were reported regarding the genitourinary system. EENT: Tympanic membrane not visualized right ear Ear canal w/ drainage noted from right ear Reports decreased hearing in right ear. Derm: Skin is intact, is healthy with good turgor, Skin is pink, warm \T\ dry. Musculoskeletal: Circulation, motion, and sensation intact. Capillary refill < 3 seconds, Range of motion: intact in all extremities. Vital Signs: 17:56 BP 195 / 115; Pulse 89; Resp 16; Temp 98.7; Pulse Ox 98% on R/A; Weight 95.25 kg; la1 Height 5 ft. 2 in. (157.48 cm); 19:04 BP 172 / 82; Pulse 80; Resp 16; Pulse Ox 95% on R/A; ca1 20:30 BP 166 / 112; Pulse 83; Resp 16 S; Pulse Ox 96% on R/A; ca1 20:37 BP 167 / 101; Pulse 82; Resp 16 S; Pulse Ox 95% on R/A; ca1 17:56 Body Mass Index 38.41 (95.25 kg, 157.48 cm) la1 ED Course: 17:40 Patient arrived in ED. as 17:47 [facility] snw 17:47 Daniel Hickman MD is Attending Physician. snw 17:56 Triage completed. la1 17:57 Arm band placed on left wrist. la1 17:58 Margarita Thurman, CECELIA is Primary Nurse. ca1 18:30 Patient has correct armband on for positive identification. Bed in low position. Call ca1 light in reach. Side rails up X 1. Pulse ox on. NIBP on. Warm blanket given. 18:50 No provider procedures requiring assistance completed. Inserted saline lock: 22 gauge ca1 in right antecubital area, using aseptic technique. Blood collected. 19:27 CT Soft Tissue Neck W/contr In Process Unspecified. EDMS 19:47 Blood Culture Adult (2) Sent. rv 21:06 Angelica Romeo MD is Referral Physician. snw 21:40 IV discontinued, intact, bleeding controlled, No redness/swelling at site. Pressure rv dressing applied. Administered Medications: 18:54 Drug: fentaNYL (PF) 50 mcg {Note: RASS - 0.} Route: IVP; Site: right antecubital; ca1 18:54 Follow up: Response: RASS: Alert and Calm (0) rv 18:56 Drug: NS 0.9% 1000 ml Route: IV; Rate: 125 ml/hr; Site: right antecubital; ca1 21:11 Follow up: IV Status: Order to discontinue infusion rv 19:47 Drug: vancoMYCIN 1 grams Route: IVPB; Infused Over: 2 hrs; Site: right antecubital; rv 21:11 Follow up: IV Status: Completed infusion; IV Intake: 250ml rv 19:47 Drug: Cortisporin Drops 4 drops Route: Otic; Site: right ear; rv 20:25 Drug: Dilaudid 1 mg Route: IVP; Site: right antecubital; rv 20:26 Follow up: Response: RASS: Alert and Calm (0) rv 21:12 Follow up: Response: RASS: Alert and Calm (0) rv 21:39 Follow up: Response: No adverse reaction; Marked relief of symptoms; Pain is decreased rv 20:45 Drug: Fortaz 2 grams Route: IVPB; Infused Over: 30 mins; Site: right antecubital; rv 21:39 Follow up: IV Status: Completed infusion rv Intake: 21:11 IV: 250ml; Total: 250ml. rv Outcome: 21:07 Discharge ordered by . snw 21:39 Discharged to home ambulatory, with family. rv 21:39 Condition: good 21:39 Discharge instructions given to patient, family, Instructed on discharge instructions, follow up and referral plans. medication usage, Demonstrated understanding of instructions, follow-up care, medications, Prescriptions given X 4. 21:41 Patient left the ED. rv Signatures: Dispatcher [employer] EDMS Juana Johnson, ANDRIY COLLAR SEWER-Paula Chong Lee, RN RN la1 Efrain Retana RN RN rv Margarita Thurman RN RN ca1 Corrections: (The following items were deleted from the chart) 20:40 20:34 BP 166 / 112; Pulse 83bpm; Resp 16bpm; Spontaneous; Pulse Ox 96% RA; ca1 ca1
--- NOTE | 2019-06-07 21:08 | EDPHYS ---
Physician Documentation [facility] Name: Alda Paz Age: 53 yrs Sex: Female : 1965 Arrival Date: 06/07/2019 Time: 17:40 Bed 27 Private MD: ED Physician Daniel Hickman HPI: 06/07 18:35 This 53 yrs old Female presents to ER via Ambulatory with complaints of Ear snw Pain. 18:35 The patient presents with pain, swelling. The complaints affect the right ear. Onset: snw The symptoms/episode began/occurred 4 day(s) ago, and became worse and became persistent. Associated signs and symptoms: Pertinent positives: headache. Severity of symptoms: At their worst the symptoms were severe in the emergency department the symptoms are worse. The patient has not experienced similar symptoms in the past. The patient has not recently seen a physician. no hx of DM, + hx of HTN. Historical: - Allergies: 17:56 Aspirin; la1 - Home Meds: 17:56 lisinopril 20 mg Oral tab 1 tab twice a day [Active]; amlodipine 10 mg tab 1 tab once la1 daily [Active]; - PMHx: 17:56 Hypertension; la1 - Immunization history:: Adult Immunizations up to date. - Social history:: Smoking status: Patient/guardian denies using tobacco. - Ebola Screening: : No symptoms or risks identified at this time. ROS: 18:35 Constitutional: Negative for fever, chills, and weight loss, Eyes: Negative for injury, snw pain, redness, and discharge, Neck: Negative for injury, pain, and swelling, Cardiovascular: Negative for chest pain, palpitations, and edema, Respiratory: Negative for shortness of breath, cough, wheezing, and pleuritic chest pain, Abdomen/GI: Negative for abdominal pain, nausea, vomiting, diarrhea, and constipation, Back: Negative for injury and pain, : Negative for injury, bleeding, discharge, and swelling, MS/Extremity: Negative for injury and deformity, Skin: Negative for injury, rash, and discoloration, Neuro: Negative for headache, weakness, numbness, tingling, and seizure, Psych: Negative for depression, anxiety, suicide ideation, homicidal ideation, and hallucinations. 18:35 ENT: Positive for ear pain, of the right ear. Exam: 18:31 Head/Face: Normocephalic, atraumatic. Eyes: Pupils equal round and reactive to light, snw extra-ocular motions intact. Lids and lashes normal. Conjunctiva and sclera are non-icteric and not injected. Cornea within normal limits. Periorbital areas with no swelling, redness, or edema. 18:31 Neck: Trachea midline, no thyromegaly or masses palpated, and no cervical lymphadenopathy. Supple, full range of motion without nuchal rigidity, or vertebral point tenderness. No Meningismus. Chest/axilla: Normal chest wall appearance and motion. Nontender with no deformity. No lesions are appreciated. Cardiovascular: Regular rate and rhythm with a normal S1 and S2. No gallops, murmurs, or rubs. Normal PMI, no JVD. No pulse deficits. Respiratory: Lungs have equal breath sounds bilaterally, clear to auscultation and percussion. No rales, rhonchi or wheezes noted. No increased work of breathing, no retractions or nasal flaring. Abdomen/GI: Soft, non-tender, with normal bowel sounds. No distension or tympany. No guarding or rebound. No evidence of tenderness throughout. Back: No spinal tenderness. No costovertebral tenderness. Full range of motion. Skin: Warm, dry with normal turgor. Normal color with no rashes, no lesions, and no evidence of cellulitis. MS/ Extremity: Pulses equal, no cyanosis. Neurovascular intact. Full, normal range of motion. Neuro: Awake and alert, GCS 15, oriented to person, place, time, and situation. Cranial nerves II-XII grossly intact. Motor strength 5/5 in all extremities. Sensory grossly intact. Cerebellar exam normal. Normal gait. Psych: Awake, alert, with orientation to person, place and time. Behavior, mood, and affect are within normal limits. 18:31 Constitutional: The patient appears alert, awake, anxious, in obvious pain. 18:31 ENT: Ear canal(s): right americo with dark purple bruising x 2, canal with edema so severe I cannot get an otoscope tip in, white serous fluid spilling from canal, right facial edema, no erythema, no mastoid tenderness, pain radiates from preauricular area down right shoulder, TM's: not visable, as noted, Examination of the other ear shows no obvious abnormality, Nose: is normal, Mouth: is normal, Posterior pharynx: is normal, Voice: is normal. Vital Signs: 17:56 BP 195 / 115; Pulse 89; Resp 16; Temp 98.7; Pulse Ox 98% on R/A; Weight 95.25 kg; la1 Height 5 ft. 2 in. (157.48 cm); 19:04 BP 172 / 82; Pulse 80; Resp 16; Pulse Ox 95% on R/A; ca1 20:30 BP 166 / 112; Pulse 83; Resp 16 S; Pulse Ox 96% on R/A; ca1 20:37 BP 167 / 101; Pulse 82; Resp 16 S; Pulse Ox 95% on R/A; ca1 17:56 Body Mass Index 38.41 (95.25 kg, 157.48 cm) la1 MDM: 17:58 Patient medically screened. snw 21:04 Data reviewed: vital signs, nurses notes. Data interpreted: Pulse oximetry: on room air snw is 95 %. Interpretation: normal. Counseling: I had a detailed discussion with the patient and/or guardian regarding: the historical points, exam findings, and any diagnostic results supporting the discharge/admit diagnosis, the presence of at least one elevated blood pressure reading (>120/80) during this emergency department visit, lab results, radiology results, RTED tomorrow for re-eval and injection of Rocephin. Response to treatment: the patient's symptoms have markedly improved after treatment. ED course: pt declines transfer for ENTservices. Risk of severe infection discussed. Pt states understanding and will return tomorrow for IM rocephin and re-evaluation.. 21:08 Refusal of service: The patient/guardian displays adequate decision making capability snw and despite a detailed discussion of alternatives, benefits, risks, and consequences refuses: Admission to the hospital for further work-up and treatment. 06/07 18:14 Order name: CBC with Diff; Complete Time: 18:49 snw 06/07 18:14 Order name: Chem 7; Complete Time: 19:09 snw 06/07 18:17 Order name: Sed Rate; Complete Time: 18:57 snw 06/07 18:17 Order name: Lactate; Complete Time: 19:09 snw 06/07 18:17 Order name: Procalcitonin; Complete Time: 20:02 snw 06/07 18:23 Order name: PT-INR; Complete Time: 19:15 snw 06/07 18:14 Order name: CT Soft Tissue Neck W/contr; Complete Time: 19:43 snw 06/07 18:23 Order name: Blood Culture Adult (2) snw 06/07 20:27 Order name: Recheck B/P; Complete Time: 20:34 snw Administered Medications: 18:54 Drug: fentaNYL (PF) 50 mcg {Note: RASS - 0.} Route: IVP; Site: right antecubital; ca1 18:54 Follow up: Response: RASS: Alert and Calm (0) rv 18:56 Drug: NS 0.9% 1000 ml Route: IV; Rate: 125 ml/hr; Site: right antecubital; ca1 21:11 Follow up: IV Status: Order to discontinue infusion rv 19:47 Drug: vancoMYCIN 1 grams Route: IVPB; Infused Over: 2 hrs; Site: right antecubital; rv 21:11 Follow up: IV Status: Completed infusion; IV Intake: 250ml rv 19:47 Drug: Cortisporin Drops 4 drops Route: Otic; Site: right ear; rv 20:25 Drug: Dilaudid 1 mg Route: IVP; Site: right antecubital; rv 20:26 Follow up: Response: RASS: Alert and Calm (0) rv 21:12 Follow up: Response: RASS: Alert and Calm (0) rv 21:39 Follow up: Response: No adverse reaction; Marked relief of symptoms; Pain is decreased rv 20:45 Drug: Fortaz 2 grams Route: IVPB; Infused Over: 30 mins; Site: right antecubital; rv 21:39 Follow up: IV Status: Completed infusion rv Disposition: 06/07/19 21:07 Discharged to Home. Impression: Otorrhea, right ear, Mastoiditis and related conditions, Otitis externa. - Condition is Stable. - Discharge Instructions: Ear Drainage, Otitis Externa, Mastoiditis, Pediatric. - Prescriptions for Levaquin 500 mg Oral Tablet - take 1 tablet by ORAL route once daily for 10 days; 10 tablet. Ciprodex 0.3- 0.1 % Otic Drops, Suspension - instill 4 drop by OTIC route every 12 hours for 7 days , for ears ONLY; 1 Container. Tylenol- Codeine #3 300-30 mg Oral Tablet - take 2 tablet by ORAL route every 6 hours As needed; 30 tablet. Diclofenac Sodium 75 mg Oral Tablet Sustained Release - take 1 tablet by ORAL route 2 times per day; 30 tablet. - Medication Reconciliation Form, Thank You Letter, Antibiotic Education, Prescription Opioid Use, Work release form form. - Follow up: Angelica Romeo MD; When: 2 - 3 days; Reason: Recheck today's complaints, Continuance of care. Follow up: Emergency Department; When: Tomorrow; Reason: re-evaluation and injection of Rocephin 1gm IM. Addendum: 06/10/2019 07:03 Co-signature as Attending Physician, Daniel Hickman MD. r n Signatures: Dispatcher [employer] EDMS Juana Johnson, IT ARCHITECTURE ANALYST-C IT ARCHITECTURE ANALYST-Csnw Daniel Hickman MD MD rn Patrick, Rico, RN RN la1 Efrain Retana RN RN rv Acob, Margarita RN RN ca1 Corrections: (The following items were deleted from the chart) 06/07 21:41 21:07 06/07/2019 21:07 Discharged to Home. Impression: Otorrhea, right ear; Mastoiditis rv and related conditions; Otitis externa. Condition is Stable. Forms are Medication Reconciliation Form, Thank You Letter, Antibiotic Education, Prescription Opioid Use. Follow up: Angelica Romeo; When: 2 - 3 days; Reason: Recheck today's complaints, Continuance of care. Follow up: Emergency Department; When: Tomorrow; Reason: re-evaluation and injection of Rocephin 1gm IM. snw
[2019-06-07 22:16] VITALS: TEMP 98.7
[2019-06-07 22:20] VITALS: BP 167/101; O2SAT 95
== END 2019-06-07 21:41 | disposition home or self-care (01) ==
LOC: ER 17:38
DX: H70.91 Unspecified mastoiditis, right ear (principal); H92.11 Otorrhea, right ear; H60.91 Unspecified otitis externa, right ear; I10 Essential (primary) hypertension; Z88.6 Allergy status to analgesic agent
CPT/HCPCS: 36415; 70491; 80048; 83605; 84145; 85025; 85610; 85652; 87040; 96361; 96365; 96368; 96375; 99284; J0713; J1170; J3010; J7030; Q9967

== ENCOUNTER 2019-06-08 15:22 | Emergency (ER) | payer SELFPAY ==
[2019-06-08] MEDS ORDERED: CEFTRIAXONE 1000 MG/VIAL ONE (16:10)
[2019-06-08] MEDS ORDERED: LIDOCAINE 1% MPF 5 ML VIAL ONE (16:10)
--- NOTE | 2019-06-08 16:27 | EDPHYS ---
Physician Documentation [facility] Name: Alda Paz Age: 53 yrs Sex: Female : 1965 Arrival Date: 06/08/2019 Time: 15:24 Bed 11 Private MD: ED Physician Felix Martin HPI: 06/08 15:51 This 53 yrs old Female presents to ER via Ambulatory with complaints of Ear jmm Pain. 15:51 The patient presents with pain, swelling. Onset: The symptoms/episode began/occurred jmm gradually. This is a 53 year old female with a history of htn that presents to the ED with right ear swelling. Symptoms began approx 3 days ago. Patient was evaluated in the ED and administered IV ABX and is currently taking levaquin. Patient states symptoms have greatly improved. Denies fever or chills. . CARDIOVASCULAR SURGICAL TECH: 15:31 LMP N/A - Irregular menses aa5 Historical: - Allergies: 15:31 Aspirin; aa5 - PMHx: 15:31 Hypertension; aa5 - PSHx: 15:31 left shoulder; aa5 - Immunization history:: Flu vaccine is not up to date. - Social history:: Smoking status: Patient/guardian denies using tobacco. - Ebola Screening: : No symptoms or risks identified at this time. ROS: 15:51 Constitutional: Negative for fever, chills, and weight loss. jmm 15:51 Cardiovascular: Negative for chest pain, palpitations, and edema, Respiratory: Negative for shortness of breath, cough, wheezing, and pleuritic chest pain. 15:51 ENT: Positive for ear pain. 15:51 Skin: Positive for erythema. 15:51 All other systems are negative. Exam: 15:51 Constitutional: This is a well developed, well nourished patient who is awake, alert, jmm and in no acute distress. Head/Face: atraumatic. 15:51 Neck: Trachea midline, Supple Chest/axilla: Normal chest wall appearance and motion. Cardiovascular: Regular rate and rhythm. No edema appreciated Respiratory: Normal respirations, no respiratory distress appreciated Abdomen/GI: Non distended, soft Back: Normal ROM Skin: General appearance color normal MS/ Extremity: Moves all extremities, no obvious deformities appreciated, no edema noted to the lower extremities Neuro: Awake and alert, normal gait Psych: Behavior is normal, Mood is normal, Patient is cooperative and pleasant 15:51 ENT: External ear(s): cellulitis, that is moderate, of the pinna of right ear and right ear canal, contusion, that is moderate, pinna of right ear and right ear canal, no mastoid tenderness appreciated. Vital Signs: 15:31 BP 118 / 69; Pulse 75; Resp 18 S; Temp 97.1(TE); Pulse Ox 98% on R/A; Weight 95.25 kg aa5 (R); Height 5 ft. 2 in. (157.48 cm) (R); Pain 2/10; 15:31 Body Mass Index 38.41 (95.25 kg, 157.48 cm) aa5 MDM: 15:51 Patient medically screened. [facility] 15:51 Counseling: I had a detailed discussion with the patient and/or guardian regarding: the [facility] need for outpatient follow up, to return to the emergency department if symptoms worsen or persist or if there are any questions or concerns that arise at home. ED course: Patient is alert and non toxic in appearance. Swelling is decreased along with pain. Patient is advised to follow up with ENT and otherwise given strict return precautions. patient understood and agrees with the plan of care. . 16:00 Data reviewed: vital signs, nurses notes. Counseling: I had a detailed discussion with [facility] the patient and/or guardian regarding: the historical points, exam findings, and any diagnostic results supporting the discharge/admit diagnosis. Administered Medications: 16:15 Drug: Rocephin (cefTRIAXone) 1 grams Route: IM; Site: right gluteus; aa5 16:35 Follow up: Response: No adverse reaction aa5 Disposition: 06/09 07:03 Co-signature as Attending Physician, Felix Martin MD I agree with the assessment and kdr plan of care. Disposition: 06/08/19 16:26 Discharged to Home. Impression: Acute actinic otitis externa, right ear. - Condition is Stable. - Discharge Instructions: Otitis Externa. - Medication Reconciliation Form, Thank You Letter, Antibiotic Education, Prescription Opioid Use form. - Follow up: Angelica Romeo MD; When: 2 - 3 days; Reason: Recheck today's complaints, Continuance of care, Re-evaluation by your physician. Signatures: Felix Martin MD MD [facility] Jorge Rouse PA PA [facility] Hannah Espinoza, RN RN aa5 Rut Aldrich, CECELIA RN hb Corrections: (The following items were deleted from the chart) 06/08 16:27 16:26 06/08/2019 16:26 Discharged to Home. Impression: Acute actinic otitis externa, jmm right ear. Condition is Stable. Forms are Medication Reconciliation Form, Thank You Letter, Antibiotic Education, Prescription Opioid Use. Follow up: Angelica Romeo; When: 2 - 3 days; Reason: Recheck today's complaints, Continuance of care, Re-evaluation by your physician. [facility] 16:37 16:27 06/08/2019 16:26 Discharged to Home. Impression: Acute actinic otitis externa, hb right ear. Condition is Stable. Forms are Medication Reconciliation Form, Thank You Letter, Antibiotic Education, Prescription Opioid Use. Follow up: Angelica Romeo; When: 2 - 3 days; Reason: Recheck today's complaints, Continuance of care, Re-evaluation by your physician. [facility]
--- NOTE | 2019-06-08 16:27 | ER ---
Nurse's Notes [facility] Name: Alda Paz Age: 53 yrs Sex: Female : 1965 Arrival Date: 06/08/2019 Time: 15:24 Bed 11 Private MD: Diagnosis: Acute actinic otitis externa, right ear Presentation: 06/08 15:28 Presenting complaint: Patient states: right ear pain that began 2-3 days ago. aa5 Transition of care: patient was not received from another setting of care. Onset of symptoms was May 2019. Risk Assessment: Do you want to hurt yourself or someone else? Patient reports no desire to harm self or others. Initial Sepsis Screen: Does the patient meet any 2 criteria? No. Patient's initial sepsis screen is negative. Does the patient have a suspected source of infection? No. Patient's initial sepsis screen is negative. Care prior to arrival: None. 15:28 Acuity: KATIE 5 aa5 15:28 Method Of Arrival: Ambulatory aa5 SCREEN WRITER: 15:31 LMP N/A - Irregular menses aa5 Historical: - Allergies: 15:31 Aspirin; aa5 - PMHx: 15:31 Hypertension; aa5 - PSHx: 15:31 left shoulder; aa5 - Immunization history:: Flu vaccine is not up to date. - Social history:: Smoking status: Patient/guardian denies using tobacco. - Ebola Screening: : No symptoms or risks identified at this time. Screenin:31 Abuse screen: Denies threats or abuse. Nutritional screening: No deficits noted. aa5 Tuberculosis screening: No symptoms or risk factors identified. Fall Risk None identified. Assessment: 15:31 General: Appears comfortable, Behavior is calm, cooperative. Pain: Complains of pain in aa5 right ear Pain does not radiate. Pain currently is 2 out of 10 on a pain scale. Quality of pain is described as aching, Pain began 2-3 days ago. Is continuous. Neuro: Level of Consciousness is awake, alert, obeys commands, Oriented to person, place, time, situation. Cardiovascular: Patient's skin is warm and dry. Respiratory: Airway is patent Respiratory effort is even, unlabored, Respiratory pattern is regular, symmetrical. GI: No signs and/or symptoms were reported involving the gastrointestinal system. : No signs and/or symptoms were reported regarding the genitourinary system. EENT: Reports pain in right ear. Derm: Skin is pink, warm \T\ dry. Musculoskeletal: Range of motion: intact in all extremities. 16:35 Reassessment: Patient is alert, oriented x 3, equal unlabored respirations, skin aa5 warm/dry/pink. Vital Signs: 15:31 BP 118 / 69; Pulse 75; Resp 18 S; Temp 97.1(TE); Pulse Ox 98% on R/A; Weight 95.25 kg aa5 (R); Height 5 ft. 2 in. (157.48 cm) (R); Pain 2/10; 15:31 Body Mass Index 38.41 (95.25 kg, 157.48 cm) aa5 ED Course: 15:24 Patient arrived in ED. as 15:28 Arm band placed on. aa5 15:28 Patient has correct armband on for positive identification. Adult w/ patient. aa5 15:29 Triage completed. aa5 15:33 Hannah Espinoza, RN is Primary Nurse. aa5 15:34 Jorge Rouse PA is PHCP. [facility] 15:34 Felix Martin MD is Attending Physician. [facility] 16:26 Angelica Romeo MD is Referral Physician. [facility] 16:35 No provider procedures requiring assistance completed. Patient did not have IV access aa5 during this emergency room visit. Administered Medications: 16:15 Drug: Rocephin (cefTRIAXone) 1 grams Route: IM; Site: right gluteus; aa5 16:35 Follow up: Response: No adverse reaction aa5 Outcome: 16:26 Discharge ordered by . [facility] 16:35 Discharged to home ambulatory, with family. aa5 16:35 Condition: stable 16:35 Discharge instructions given to patient, Instructed on discharge instructions, follow up and referral plans. Demonstrated understanding of instructions, follow-up care. 16:37 Patient left the ED. hb Signatures: Jorge Rouse PA PA jmm Martinez, Amelia as Calderon, Audri, RN RN aa5 Rut Aldrich RN RN hb
[2019-06-08 16:54] VITALS: BP 118/69; TEMP 97.1; O2SAT 98
== END 2019-06-08 16:37 | disposition home or self-care (01) ==
LOC: ER 15:22
DX: H60.511 Acute actinic otitis externa, right ear (principal); I10 Essential (primary) hypertension; Z88.6 Allergy status to analgesic agent
CPT/HCPCS: 96372; 99283

== ENCOUNTER 2019-10-10 06:18 | Emergency (ER) | payer SELFPAY ==
[2019-10-10] MEDS ORDERED: dexAMETHasone 10 MG/ML VIAL ONE (06:38)
[2019-10-10] MEDS ORDERED: DIAZEPAM 5 MG TABLET ONE (06:39)
[2019-10-10] MEDS ORDERED: HYDROCODONE/APAP 10/325 TAB ONE (06:39)
--- NOTE | 2019-10-10 07:51 | EDPHYS ---
Physician Documentation [facility] Name: Alda Paz Age: 53 yrs Sex: Female : 1965 Arrival Date: 10/10/2019 Time: 06:20 Bed 13 Private MD: ED Physician Daniel Hickman HPI: 10/10 06:56 This 53 yrs old Female presents to ER via Wheelchair with complaints of Back jmm Pain. 06:56 The patient presents with pain that is acute. Onset: The symptoms/episode jmm began/occurred this morning. The pain radiates to the right leg. Associated signs and symptoms: Pertinent negatives: abdominal pain, chest pain, fever, numbness. Modifying factors: The patient symptoms are alleviated by nothing, the patient symptoms are aggravated by any movement. This is a 53 year old female with a history of htn that presents to the ED with complaints of right lower back pain which began this morning. Pain radiates in to the right leg. Denies urinary or bowel problems. Patient states this has happened before and attributes it to lifting at work. Denies fever. . Historical: - Allergies: 06:29 Aspirin; aa1 - Home Meds: 06:29 lisinopril 20 mg Oral tab 1 tab twice a day [Active]; aa1 - PMHx: 06:29 Hypertension; aa1 - PSHx: 06:29 left shoulder; aa1 - Immunization history:: Flu vaccine is not up to date. - Social history:: Smoking status: Patient/guardian denies using tobacco. - Ebola Screening: : No symptoms or risks identified at this time. ROS: 06:56 Constitutional: Negative for fever, chills, and weight loss, Cardiovascular: Negative jmm for chest pain, palpitations, and edema, Respiratory: Negative for shortness of breath, cough, wheezing, and pleuritic chest pain. 06:56 Back: Positive for pain at rest, pain with movement. 06:56 All other systems are negative. Exam: 06:56 Head/Face: atraumatic. Eyes: EOMI, no conjunctival erythema appreciated ENT: Moist jmm Mucus Membranes Neck: Trachea midline, Supple Chest/axilla: Normal chest wall appearance and motion. Cardiovascular: Regular rate and rhythm. No edema appreciated Respiratory: Normal respirations, no respiratory distress appreciated Abdomen/GI: Non distended, soft 06:56 Skin: General appearance color normal 06:56 Constitutional: The patient appears alert, awake, uncomfortable. 06:56 Back: vertebral tenderness, is not appreciated, right paraspinal lumbar pain on palpation. 06:56 Neuro: Orientation: is normal, Mentation: is normal, Memory: is normal. 06:56 Psych: Behavior/mood is pleasant, cooperative. Vital Signs: 06:29 BP 187 / 88; Pulse 66; Resp 18; Temp 98.1; Pulse Ox 98% on R/A; Weight 96.16 kg; Height aa1 5 ft. 2 in. (157.48 cm); Pain 9/10; 06:34 BP 153 / 59; wh 07:45 BP 138 / 66; Pulse 64; Resp 16; Pulse Ox 100% on R/A; Pain 2/10; tr5 06:29 Body Mass Index 38.77 (96.16 kg, 157.48 cm) aa1 MDM: 06:31 Patient medically screened. [facility]una 07:49 Data reviewed: vital signs, nurses notes. Counseling: I had a detailed discussion with justin the patient and/or guardian regarding: the historical points, exam findings, and any diagnostic results supporting the discharge/admit diagnosis, the need for outpatient follow up, to return to the emergency department if symptoms worsen or persist or if there are any questions or concerns that arise at home. ED course: Pain is decreased in the ED. Patient is able to ambulate. I do not suspect cauda equina or cord compression. Patient advised to follow up with pcp and otherwise given strict return precautions. patient understood and agrees with the plan of care. . Administered Medications: 06:43 Drug: [place] 10 mg-325 mg 1 tabs Route: PO; wh 06:43 Drug: Valium 5 mg Route: PO; 06:45 Drug: Decadron 10 mg Route: IM; Site: right deltoid; 07:00 Follow up: Response: No adverse reaction tr5 Disposition: 10/10/19 07:51 Discharged to Home. Impression: Strain of muscle, fascia and tendon of lower back. - Condition is Stable. - Discharge Instructions: Back Pain, Adult. - Prescriptions for Ultracet 37.5- 325 mg Oral Tablet - take 1 tablet by ORAL route every 6 hours - for up to 5 days; do not exceed 8 tablets per day.; 12 tablet. Zanaflex 4 mg Oral Tablet - take 1 tablet by ORAL route every 8 hours As needed; 20 tablet. - Medication Reconciliation Form, Thank You Letter, Antibiotic Education, Prescription Opioid Use form. - Follow up: Private Physician; When: 2 - 3 days; Reason: Recheck today's complaints, Continuance of care, Re-evaluation by your physician. Addendum: 10/13/2019 07:34 Co-signature as Attending Physician, Daniel Hickman MD. r n Signatures: Joleen Leary RN RN aa1 Jorge Rouse PA PA Daniel Sykes MD MD rn Habalo, Fernando Mejía RN RN tr5 Corrections: (The following items were deleted from the chart) 10/10 08:07 07:51 10/10/2019 07:51 Discharged to Home. Impression: Strain of muscle, fascia and tr5 tendon of lower back. Condition is Stable. Forms are Medication Reconciliation Form, Thank You Letter, Antibiotic Education, Prescription Opioid Use. Follow up: Private Physician; When: 2 - 3 days; Reason: Recheck today's complaints, Continuance of care, Re-evaluation by [facility] physician[facility]
--- NOTE | 2019-10-10 07:51 | ER ---
Nurse's Notes [facility] Name: Alda Paz Age: 53 yrs Sex: Female : 1965 Arrival Date: 10/10/2019 Time: 06:20 Bed 13 Private MD: Diagnosis: Strain of muscle, fascia and tendon of lower back Presentation: 10/10 06:26 Presenting complaint: Patient states: she hurt her back at work last week picking up aa1 heavy trash bags. C/O R low back pain 07/05. Transition of care: patient was not received from another setting of care. Onset of symptoms was October 03, 2019. Risk Assessment: Do you want to hurt yourself or someone else? Patient reports no desire to harm self or others. Initial Sepsis Screen: Does the patient meet any 2 criteria? No. Patient's initial sepsis screen is negative. Does the patient have a suspected source of infection? No. Patient's initial sepsis screen is negative. Care prior to arrival: None. 06:26 Method Of Arrival: Wheelchair aa1 06:26 Acuity: KATIE 3 aa1 Triage Assessment: 06:29 General: Appears in no apparent distress. uncomfortable, Behavior is cooperative, aa1 appropriate for age, crying. Historical: - Allergies: 06:29 Aspirin; aa1 - Home Meds: 06:29 lisinopril 20 mg Oral tab 1 tab twice a day [Active]; aa1 - PMHx: 06:29 Hypertension; aa1 - PSHx: 06:29 left shoulder; aa1 - Immunization history:: Flu vaccine is not up to date. - Social history:: Smoking status: Patient/guardian denies using tobacco. - Ebola Screening: : No symptoms or risks identified at this time. Screenin:33 Abuse screen: Denies threats or abuse. Denies injuries from another. Nutritional wh screening: No deficits noted. Tuberculosis screening: No symptoms or risk factors identified. Fall Risk None identified. Assessment: 06:46 General: Appears in no apparent distress. Behavior is cooperative, crying. Pain: wh Complains of pain in back Pain does not radiate. Pain currently is 10 out of 10 on a pain scale. Quality of pain is described as aching. Neuro: Level of Consciousness is awake, alert, obeys commands, Oriented to person, place, time, situation, Appropriate for age. Cardiovascular: Capillary refill < 3 seconds. Respiratory: Airway is patent Respiratory effort is even, unlabored, Respiratory pattern is regular, symmetrical. GI: Abdomen is flat, non-distended. : No signs and/or symptoms were reported regarding the genitourinary system. EENT: No signs and/or symptoms were reported regarding the EENT system. Derm: Skin is intact, is healthy with good turgor, Skin is pink, warm \T\ dry. normal. Musculoskeletal: Circulation, motion, and sensation intact. 07:30 Reassessment: Patient appears in no apparent distress at this time. Patient and/or tr5 family updated on plan of care and expected duration. Pain level reassessed. Patient is alert, oriented x 3, equal unlabored respirations, skin warm/dry/pink. Vital Signs: 06:29 BP 187 / 88; Pulse 66; Resp 18; Temp 98.1; Pulse Ox 98% on R/A; Weight 96.16 kg; Height aa1 5 ft. 2 in. (157.48 cm); Pain 9/10; 06:34 BP 153 / 59; wh 07:45 BP 138 / 66; Pulse 64; Resp 16; Pulse Ox 100% on R/A; Pain 2/10; tr5 06:29 Body Mass Index 38.77 (96.16 kg, 157.48 cm) aa1 ED Course: 06:20 Patient arrived in ED. jg7 06:24 Jorge Rouse PA is PHCP. [facility] 06:24 Daniel Hickman MD is Attending Physician. [facility] 06:29 Triage completed. aa1 06:29 Arm band placed on right wrist. aa1 06:33 Lisa Jang is Primary Nurse. 06:34 Patient has correct armband on for positive identification. Bed in low position. Call light in reach. Side rails up X 1. Pulse ox on. NIBP on. 07:08 Primary Nurse role handed off by Lisa Jang 07:48 Fernando Regan, RN is Primary Nurse. tr5 08:05 No provider procedures requiring assistance completed. Patient did not have IV access tr5 during this emergency room visit. Administered Medications: 06:43 Drug: Herman 10 mg-325 mg 1 tabs Route: PO; wh 06:43 Drug: Valium 5 mg Route: PO; 06:45 Drug: Decadron 10 mg Route: IM; Site: right deltoid; 07:00 Follow up: Response: No adverse reaction tr5 Outcome: 07:51 Discharge ordered by MD. anderson 08:05 Discharged to home ambulatory. tr5 08:05 Condition: stable 08:05 Discharge instructions given to patient, Instructed on discharge instructions, follow up and referral plans. medication usage, Demonstrated understanding of instructions, follow-up care, medications, Prescriptions given X 2. 08:07 Patient left the ED. tr5 Signatures: Grace Whitfield Alissa, RN RN aa1 Jorge Rouse PA PA jm Lisa Jang Fernando Regan RN RN tr5 Nicolette Mascorro7
[2019-10-10 08:16] VITALS: TEMP 98.1
[2019-10-10 08:19] VITALS: BP 138/66; O2SAT 100
== END 2019-10-10 08:07 | disposition home or self-care (01) ==
LOC: ER 06:18
DX: S39.012A Strain of muscle, fascia and tendon of lower back, initial encounter (principal); X50.9XXA Other and unspecified overexertion or strenuous movements or postures, initial encounter; Y93.9 Activity, unspecified; Y92.89 Other specified places as the place of occurrence of the external cause; Y99.8 Other external cause status; I10 Essential (primary) hypertension; Z88.8 Allergy status to other drugs, medicaments and biological substances
CPT/HCPCS: 96372; 99283; J1100

== ENCOUNTER 2020-02-04 14:10 | Emergency (ER) | payer SELFPAY ==
--- NOTE | 2020-02-04 14:47 | EDPHYS ---
Physician Documentation [facility] Name: Alda Paz Age: 54 yrs Sex: Female : 1965 Arrival Date: 02/04/2020 Time: 14:14 Bed 13 Private MD: Sharron Luna H ED Physician Felix Martin HPI: 02/03 14:37 This 54 yrs old Female presents to ER via Ambulatory with complaints of Back cp Pain, Fall Injury. 14:37 The patient presents with pain that is acute. The symptoms are located in the left cp scapular area and left subscapular area. Onset: The symptoms/episode began/occurred today. Associated signs and symptoms: Pertinent negatives: abdominal pain, chest pain, numbness, tingling, weakness. Patient reports slip on wet floor causing her to almost fall to ground that caused pain to left upper back. Historical: - Allergies: 14:24 Aspirin; ss - Home Meds: 14:24 amlodipine 10 mg tab 1 tab once daily [Active]; lisinopril 20 mg Oral tab 1 tab twice a ss day [Active]; - PMHx: 14:24 Hypertension; ss - PSHx: 14:24 left shoulder; ss - Immunization history:: Adult Immunizations up to date. - Social history:: Smoking status: Patient denies any tobacco usage or history of. ROS: 14:39 Eyes: Negative for injury, pain, redness, and discharge. cp 14:39 Constitutional: Negative for body aches, chills, fever, poor PO intake. 14:39 Neck: Negative for pain with movement, pain at rest, stiffness. 14:39 Cardiovascular: Negative for chest pain, edema, palpitations. 14:39 Respiratory: Negative for cough, shortness of breath, wheezing. 14:39 Abdomen/GI: Negative for abdominal pain, nausea, vomiting, and diarrhea. 14:39 Back: Positive for pain at rest, pain with movement, of the left scapular area and left subscapular area. 14:39 Neuro: Negative for numbness, tingling, weakness. 14:39 All other systems are negative. Exam: 14:40 Head/Face: Normocephalic, atraumatic. cp 14:40 Constitutional: The patient appears in no acute distress, alert, awake, non-toxic, well developed, well nourished, obese. 14:40 Chest/axilla: Inspection: normal, Palpation: is normal, no crepitus, no tenderness. 14:40 Cardiovascular: Rate: normal, Rhythm: regular. 14:40 Respiratory: the patient does not display signs of respiratory distress, Respirations: normal, no use of accessory muscles, no retractions, labored breathing, is not present, Breath sounds: are clear throughout, no decreased breath sounds, no stridor, no wheezing. 14:40 Back: pain, that is moderate, of the left scapular area and left subscapular area, ROM is painful. 14:40 Neuro: Orientation: to person, place \T\ time. Mentation: is normal, Motor: moves all fours, strength is normal. Vital Signs: 14:22 BP 190 / 87; Pulse 62; Resp 20; Temp 98.3(O); Pulse Ox 99% on R/A; Weight 90.72 kg; ss Height 5 ft. 1 in. (154.94 cm); Pain 7/10; 14:55 BP 163 / 90; Pulse 72; Resp 18; Pulse Ox 96% ; ah 14:22 Body Mass Index 37.79 (90.72 kg, 154.94 cm) ss MDM: 14:29 Patient medically screened. cp 14:45 Differential diagnosis: strain, pulled muscle, torn muscle. cp 14:46 Data reviewed: vital signs, nurses notes, and as a result, I will discharge patient. cp 14:46 Counseling: I had a detailed discussion with the patient and/or guardian regarding: the cp historical points, exam findings, and any diagnostic results supporting the discharge/admit diagnosis, the need for outpatient follow up, a family practitioner, to return to the emergency department if symptoms worsen or persist or if there are any questions or concerns that arise at home. Response to treatment: the patient's symptoms have markedly improved after treatment. Administered Medications: 14:44 Drug: Hydrocodone-Acetaminophen (7.5 mg-325 mg) 1 tabs {Note: RASS 1.} Route: PO; ah 15:00 Follow up: Response: No adverse reaction ah 14:44 Drug: Flexeril 10 mg Route: PO; ah 15:00 Follow up: Response: No adverse reaction Disposition: 18:49 Co-signature as Attending Physician, Felix Martin MD I agree with the assessment and kdr plan of care. Disposition: 02/04/20 14:46 Discharged to Home. Impression: Strain of muscle and tendon of back wall of thorax. - Condition is Stable. - Discharge Instructions: Back Pain, Adult. - Prescriptions for lidocaine 5 % Topical adhesive patch,medicated - apply 1 patch by TRANSDERMAL route once daily As needed; 1 box. Cyclobenzaprine 10 mg Oral Tablet - take 1 tablet by ORAL route every 8 hours As needed no driving while taking medication; 20 tablet. Tramadol 50 mg Oral Tablet - take 1 tablet by ORAL route every 8 hours as needed; 20 tablet. - Medication Reconciliation Form, Thank You Letter, Antibiotic Education, Prescription Opioid Use form. - Follow up: Private Physician; When: 2 - 3 days; Reason: Recheck today's complaints. - Problem is new. - Symptoms have improved. Signatures: Felix Martin MD MD [facility] Rhonda Bullard RN RN Josiah Da Silva PA PA cp Harris, Amy RN RN Corrections: (The following items were deleted from the chart) 15:04 14:46 02/04/2020 14:46 Discharged to Home. Impression: Strain of muscle and tendon of ah back wall of thorax. Condition is Stable. Forms are Medication Reconciliation Form, Thank You Letter, Antibiotic Education, Prescription Opioid Use. Follow up: Private Physician; When: 2 - 3 days; Reason: Recheck today's complaints. Problem is new. Symptoms have improved. cp
--- NOTE | 2020-02-04 14:47 | ER ---
Nurse's Notes [facility] Name: Alda Paz Age: 54 yrs Sex: Female : 1965 Arrival Date: 02/04/2020 Time: 14:14 Bed 13 Private MD: Sharron Luna H Diagnosis: Strain of muscle and tendon of back wall of thorax Presentation: 02/03 14:22 Chief complaint: Patient states: L upper back pain after slipping and almost falling at the store today 2.5 hours ago. Coronavirus screen: Proceed with normal triage. Patient denies a cough. Patient denies shortness of breath or difficulty breathing. Patient denies measured and/or subjective temperature greater than 100.4F prior to today's visit. Patient denies travel on a cruise ship or to a country the [facility] currently lists as an affected area. Patient denies contact with known and/or suspected case of COVID-19. Ebola Screen: Patient denies exposure to infectious person. Patient denies travel to an Ebola-affected area in the 21 days before illness onset. Initial Sepsis Screen: Does the patient meet any 2 criteria? No. Patient's initial sepsis screen is negative. Does the patient have a suspected source of infection? No. Patient's initial sepsis screen is negative. Risk Assessment: Do you want to hurt yourself or someone else? Patient reports no desire to harm self or others. Onset of symptoms was February 04, 2020 at 12:00. 14:22 Method Of Arrival: Ambulatory 14:22 Acuity: KATIE 4 Historical: - Allergies: 14:24 Aspirin; - Home Meds: 14:24 amlodipine 10 mg tab 1 tab once daily [Active]; lisinopril 20 mg Oral tab 1 tab twice a ss day [Active]; - PMHx: 14:24 Hypertension; - PSHx: 14:24 left shoulder; - Immunization history:: Adult Immunizations up to date. - Social history:: Smoking status: Patient denies any tobacco usage or history of. Screenin:50 Abuse screen: Denies threats or abuse. Nutritional screening: No deficits noted. Tuberculosis screening: No symptoms or risk factors identified. Fall Risk None identified. Assessment: 14:30 General: Appears uncomfortable, Behavior is cooperative, appropriate for age, restless. Pain: Complains of pain in left mid back Pain does not radiate. Pain currently is 8 out of 10 on a pain scale. Quality of pain is described as throbbing, Pain began this morning Is continuous. 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 Cardiovascular: Heart tones S1 S2 Capillary refill < 3 seconds Patient's skin is warm and dry. Respiratory: Airway is patent Respiratory effort is even, unlabored, Respiratory pattern is regular, symmetrical, Breath sounds are clear bilaterally. GI: No signs and/or symptoms were reported involving the gastrointestinal system. Bowel sounds present X 4 quads. : No signs and/or symptoms were reported regarding the genitourinary system. EENT: No signs and/or symptoms were reported regarding the EENT system. Derm: No signs and/or symptoms reported regarding the dermatologic system. Musculoskeletal: Circulation, motion, and sensation intact. Capillary refill < 3 seconds. Injury Description: Pt states that she almost fell this morning and feels like she strained her back. 15:02 Reassessment: Discharge papers given to Pt and eduction regarding prescriptions. Pt ah voiced understanding. Vital Signs: 14:22 BP 190 / 87; Pulse 62; Resp 20; Temp 98.3(O); Pulse Ox 99% on R/A; Weight 90.72 kg; Height 5 ft. 1 in. (154.94 cm); Pain 7/10; 14:55 BP 163 / 90; Pulse 72; Resp 18; Pulse Ox 96% ; ah 14:22 Body Mass Index 37.79 (90.72 kg, 154.94 cm) ED Course: 14:14 Patient arrived in ED. am2 14:15 Sharron Luna DO is Private Physician. am2 14:19 Josiah Da Silva PA is PHCP. cp 14:19 Felix Martin MD is Attending Physician. cp 14:23 Triage completed. 14:24 Arm band placed on right wrist. 14:31 Martina Heller, RN is Primary Nurse. 14:51 Patient has correct armband on for positive identification. Bed in low position. Call light in reach. 15:01 No provider procedures requiring assistance completed. Patient did not have IV access during this emergency room visit. Administered Medications: 14:44 Drug: Hydrocodone-Acetaminophen (7.5 mg-325 mg) 1 tabs {Note: RASS 1.} Route: PO; 15:00 Follow up: Response: No adverse reaction 14:44 Drug: Flexeril 10 mg Route: PO; 15:00 Follow up: Response: No adverse reaction Outcome: 14:46 Discharge ordered by . christina 15:01 Discharged to home ambulatory. 15:01 Condition: good 15:01 Discharge instructions given to patient, Instructed on discharge instructions, follow up and referral plans. Demonstrated understanding of instructions, follow-up care, medications, Prescriptions given X 3. 15:04 Patient left the ED. Signatures: Rhonda Bullard, RN RN Josiah Da Silva PA PA cp Moreno, Amanda [facility] Martina Heller, RN RN
[2020-02-04] MEDS ORDERED: HYDROCODONE/APAP 7.5/325 MG TAB ONE (14:48)
[2020-02-04] MEDS ORDERED: CYCLOBENZAPRINE 10 MG TAB ONE (14:48)
[2020-02-04 15:10] VITALS: TEMP 98.3
[2020-02-04 15:11] VITALS: BP 163/90; O2SAT 96
== END 2020-02-04 15:04 | disposition home or self-care (01) ==
LOC: ER 14:10
DX: S29.012A Strain of muscle and tendon of back wall of thorax, initial encounter (principal); W18.49XA Other slipping, tripping and stumbling without falling, initial encounter; Y92.512 Supermarket, store or market as the place of occurrence of the external cause; I10 Essential (primary) hypertension; Z79.899 Other long term (current) drug therapy
CPT/HCPCS: 99283

== ENCOUNTER 2020-08-22 18:26 | Emergency (ER) | payer OTHER, SELFPAY ==
--- NOTE | 2020-08-22 18:58 | EDPHYS ---
Physician Documentation [facility] Name: Alda Paz Age: 54 yrs Sex: Female : 1965 Arrival Date: 08/22/2020 Time: 18:28 Bed 16 Private MD: ED Physician Ann Spivey HPI: 08/22 18:50 This 54 yrs old Female presents to ER via Ambulatory with complaints of Low jr8 Back Pain. 18:50 The patient presents for low back pain starting yesterday. 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 States that she felt a "tugging" on her back yesterday, and it worsened this morning when she stood up. Denies loss of bowel/bladder, numbness/tingling, or inability to ambulate.. Historical: - Allergies: 18:37 Aspirin; ll1 - PMHx: 18:37 Hypertension; ll1 - PSHx: 18:37 left shoulder; ll1 - Immunization history:: Flu vaccine is not up to date. - Social history:: Smoking status: Patient denies any tobacco usage or history of. ROS: 18:57 Eyes: Negative for injury, pain, redness, and discharge, ENT: Negative for injury, jr8 pain, and discharge, Neck: Negative for injury, pain, and swelling, Cardiovascular: Negative for chest pain, palpitations, and edema, Respiratory: Negative for shortness of breath, cough, wheezing, and pleuritic chest pain, Abdomen/GI: Negative for abdominal pain, nausea, vomiting, diarrhea, and constipation, MS/Extremity: Negative for injury and deformity, Skin: Negative for injury, rash, and discoloration, Neuro: Negative for headache, weakness, numbness, tingling, and seizure. 18:57 Back: Positive for pain at rest, pain with movement, Negative for radiated pain. Exam: 18:57 Constitutional: This is a well developed, well nourished patient who is awake, alert, jr8 and in no acute distress. Cardiovascular: Regular rate and rhythm with a normal S1 and S2. No gallops, murmurs, or rubs. Normal PMI, no JVD. No pulse deficits. Respiratory: Lungs have equal breath sounds bilaterally, clear to auscultation and percussion. No rales, rhonchi or wheezes noted. No increased work of breathing, no retractions or nasal flaring. Abdomen/GI: Soft, non-tender, with normal bowel sounds. No distension or tympany. No guarding or rebound. No evidence of tenderness throughout. Skin: Warm, dry with normal turgor. Normal color with no rashes, no lesions, and no evidence of cellulitis. MS/ Extremity: Pulses equal, no cyanosis. Neurovascular intact. Full, normal range of motion. Neuro: Awake and alert, GCS 15, oriented to person, place, time, and situation. Cranial nerves II-XII grossly intact. Motor strength 5/5 in all extremities. Sensory grossly intact. Cerebellar exam normal. Normal gait. 18:57 Back: pain, that is mild, of the low back area, ROM is painful, normal spinal alignment noted, CVA tenderness, is absent, vertebral tenderness, is not appreciated. Vital Signs: 18:37 BP 174 / 93; Pulse 66; Resp 18; Temp 98.2; Pulse Ox 97% ; Weight 95.25 kg; Height 5 ft. ll1 3 in. (160.02 cm); Pain 8/10; 18:37 Body Mass Index 37.20 (95.25 kg, 160.02 cm) ll1 MDM: 18:49 Patient medically screened. jr8 18:57 Data reviewed: vital signs, nurses notes, and as a result, I will discharge patient. jr8 Data interpreted: Pulse oximetry: on room air is 97 %. Interpretation: normal. Counseling: I had a detailed discussion with the patient and/or guardian regarding: the historical points, exam findings, and any diagnostic results supporting the discharge/admit diagnosis, the need for outpatient follow up, a family practitioner, to return to the emergency department if symptoms worsen or persist or if there are any questions or concerns that arise at home. Response to treatment: the patient's symptoms have mildly improved after treatment. Administered Medications: 19:04 Drug: TORadol 60 mg Route: IM; Site: right ventrogluteal; tw2 19:24 Follow up: Response: No adverse reaction; Pain is decreased 19:04 Drug: Robaxin 750 mg Route: PO; tw2 19:24 Follow up: Response: No adverse reaction wh Disposition: 08/22/20 18:58 Discharged to Home. Impression: Low back pain. - Condition is Stable. - Discharge Instructions: Back Pain, Adult. - Prescriptions for meloxicam 15 mg Oral tablet - take 1 tablet by ORAL route once daily As needed; 20 tablet. Robaxin 500 mg Oral Tablet - take 2 tablet by ORAL route every 6 hours As needed; 40 tablet. Medrol (Red) 4 mg Oral Tablets, Dose Pack - take 1 tablet by ORAL route as directed - follow package instructions; 1 packet. - Medication Reconciliation Form, Thank You Letter, Antibiotic Education, Prescription Opioid Use form. - Follow up: Private Physician; When: 5 - 6 days; Reason: Recheck today's complaints, Continuance of care, Re-evaluation by your physician. - Problem is new. - Symptoms have improved. Signatures: Donell Arreaga PA PA jr8 Dawn Lewis RN RN tw2 Lisa Jang Lynsay RN RN ll1 Corrections: (The following items were deleted from the chart) 19:25 18:58 08/22/2020 18:58 Discharged to Home. Impression: Low back pain. Condition is wh Stable. Forms are Medication Reconciliation Form, Thank You Letter, Antibiotic Education, Prescription Opioid Use. Follow up: Private Physician; When: 5 - 6 days; Reason: Recheck today's complaints, Continuance of care, Re-evaluation by your physician. Problem is new. Symptoms have improved. jr8
--- NOTE | 2020-08-22 18:58 | ER ---
Nurse's Notes [facility] Name: Alda Paz Age: 54 yrs Sex: Female : 1965 Arrival Date: 08/22/2020 Time: 18:28 Bed 16 Private MD: Diagnosis: Low back pain Presentation: 08/22 18:37 Chief complaint: Patient states: Low back pain for 2 days. No known trauma. Reports ll1 heavy lifting at work. Coronavirus screen: Client denies travel out of the [place] in the last 14 days. At this time, the client does not indicate any symptoms associated with coronavirus-19. Ebola Screen: Patient denies travel to an Ebola-affected area in the 21 days before illness onset. Initial Sepsis Screen: Does the patient meet any 2 criteria? No. Patient's initial sepsis screen is negative. Does the patient have a suspected source of infection? Yes: Bone or joint infection. Risk Assessment: Do you want to hurt yourself or someone else? Patient reports no desire to harm self or others. Onset of symptoms was August 21, 2020. 18:37 Method Of Arrival: Ambulatory ll1 18:37 Acuity: KATIE 4 ll1 Historical: - Allergies: 18:37 Aspirin; ll1 - PMHx: 18:37 Hypertension; ll1 - PSHx: 18:37 left shoulder; ll1 - Immunization history:: Flu vaccine is not up to date. - Social history:: Smoking status: Patient denies any tobacco usage or history of. Screenin:55 Abuse screen: Denies threats or abuse. Nutritional screening: No deficits noted. tw2 Tuberculosis screening: No symptoms or risk factors identified. Fall Risk None identified. Assessment: 19:05 Reassessment: pt reports "i lift something heavy every day at work". General: Appears tw2 in no apparent distress. slender, well groomed, Behavior is calm, cooperative, appropriate for age. Pain: Complains of pain in lumbar area, left low back and right low back. Neuro: Level of Consciousness is awake, alert, obeys commands, Oriented to person, place, time, situation. Cardiovascular: Patient's skin is warm and dry. Respiratory: Airway is patent Respiratory effort is even, unlabored, Respiratory pattern is regular, symmetrical. GI: No signs and/or symptoms were reported involving the gastrointestinal system. : No signs and/or symptoms were reported regarding the genitourinary system. EENT: No signs and/or symptoms were reported regarding the EENT system. Derm: No signs and/or symptoms reported regarding the dermatologic system. Musculoskeletal: Circulation, motion, and sensation intact. Range of motion: intact in all extremities, Reports pain in low back area. Vital Signs: 18:37 BP 174 / 93; Pulse 66; Resp 18; Temp 98.2; Pulse Ox 97% ; Weight 95.25 kg; Height 5 ft. ll1 3 in. (160.02 cm); Pain 8/10; 18:37 Body Mass Index 37.20 (95.25 kg, 160.02 cm) 1 ED Course: 18:28 Patient arrived in ED. ds1 18:37 Arm band placed on Patient placed in an exam room, on a stretcher. 1 18:38 Triage completed. 1 18:38 Bed in low position. Call light in reach. Adult w/ patient. Pulse ox on. NIBP on. tw2 18:47 Donell Arreaga PA is PHCP. jr8 18:47 Ann Spivey MD is Attending Physician. 8 19:00 Report given to CECELIA Johnson. tw2 19:24 No provider procedures requiring assistance completed. Patient did not have IV access during this emergency room visit. Administered Medications: 19:04 Drug: TORadol 60 mg Route: IM; Site: right ventrogluteal; tw2 19:24 Follow up: Response: No adverse reaction; Pain is decreased 19:04 Drug: Robaxin 750 mg Route: PO; tw2 19:24 Follow up: Response: No adverse reaction Outcome: 18:58 Discharge ordered by . jr8 19:24 Discharged to home ambulatory, with family. 19:24 Condition: stable 19:24 Discharge instructions given to patient, Instructed on discharge instructions, follow up and referral plans. medication usage, POC Demonstrated understanding of instructions, follow-up care, medications, POC Prescriptions given X 3. 19:25 Patient left the ED. Signatures: Vale Ba ds1 Donell Arreaga PA PA jr8 Dawn Lewis RN RN tw2 Lisa Jang Brennan Elena RN RN 1
[2020-08-22] MEDS ORDERED: KETOROLAC 30 MG/ML INJ ONE (19:10)
[2020-08-22] MEDS ORDERED: methocarbamoL 500 MG TAB ONE (19:10)
[2020-08-22 20:01] VITALS: BP 174/93; TEMP 98.2; O2SAT 97
== END 2020-08-22 19:25 | disposition home or self-care (01) ==
LOC: ER 18:26
DX: M54.5 Low back pain (principal); I10 Essential (primary) hypertension; Z88.6 Allergy status to analgesic agent
CPT/HCPCS: 96372; 99283

== ENCOUNTER 2021-04-30 17:07 | Emergency (ER) | payer OTHER ==
--- OUTSIDE RECORDS SUMMARY | 2021-04-30 17:15 | XMS REPORT | Continuity of Care Document ---
:1965 Author Organization [facility] t Address [address] [place] [address] Care Team Providers Name Role Phone Samson García DO Attending Clinician Problems This patient has no known problems. Allergies, Adverse Reactions, Alerts This patient has no known allergies or adverse reactions. Medications This patient has no known medications. Procedures This patient has no known procedures. Encounters Start End Encounter Admission Attending Care Care Encounter Source Date/Time Date/Time Type Type Clinicians Facility Department ID 2020-10-01 2020-10-01 Emergency ALIYAH García [id number] 09:08:00 12:24:00 Samson Pierre [id number] [place] [id number] [place] [id number] Results This patient has no known results.
[2021-04-30 17:59] LABS: Absolute Lymphocytes (CBC) 1.8 K/uL (0.7-4.9); Basophils % 0.7 % (0-1.3); Hematocrit 42.6 % (36.0-45.0); Lymphocytes % 22.9 % (15.3-44.8); MPV 7.4 fL (7.6-11.3); RBC Red Blood Cell Count 5.19 M/uL (3.86-4.86)
[2021-04-30] MEDS ORDERED: ONDANSETRON 4 MG/2 ML VIAL ONE (18:08)
[2021-04-30] MEDS ORDERED: NA CHLORIDE 0.9% 1,000 ML ONE (18:08)
[2021-04-30] MEDS ORDERED: MORPHINE 4 MG/ML SYR ONE (18:08)
[2021-04-30 18:26] LABS: Albumin 3.6 g/dL (3.4-5.0); Bilirubin Direct 0.1 mg/dL (0-0.2); Bilirubin Total 0.4 mg/dL (0.2-1.0); Potassium 3.4 mmol/L (3.5-5.1); Protein, Total 8.2 g/dL (6.4-8.2)
[2021-04-30 18:53] LABS: Urine Blood Negative (Negative); Urine Glucose Negative (Negative); Urine Protein Negative (Negative); Urine Specific Gravity 1.025 (1.005-1.030)
[2021-04-30 19:14] LABS: Urine Bacteria <20 /HPF (<20); Urine RBC <5 /HPF (NONE SEEN)
[2021-04-30 19:15] LABS: Calcium Oxalate Crystals- Ur FEW (NONE SEEN); Urine Mucus 2+ /HPF (NONE SEEN)
--- NOTE | 2021-04-30 20:01 | RAD REPORT ---
EXAM DESCRIPTION: CT - Abdomen Pelvis W Contrast - 04/30/2021 7:32 pm CLINICAL HISTORY: FLANK PAIN COMPARISON: Abdomen Pelvis W Contrast dated 03/15/2018 TECHNIQUE: Biphasic, helical CT imaging of the abdomen and pelvis was performed following 100 ml non -ionic IV contrast. No oral contrast administered. All CT scans are performed using dose optimization technique as appropriate and may include automated exposure control or mA/KV adjustment according to patient size. FINDINGS: No suspicious findings in the lung bases. The liver, spleen, and pancreas show no suspicious findings. Liver does show fatty infiltration. No g allbladder or biliary tree abnormality. Gallstones can be occult. Symmetric renal function is seen with no hydronephrosis or suspicious renal mass. No pyelonephritis o r acute parenchymal process. Punctate 3 mm nonobstructing calyx calculus noted on the right. Urinary bladder is mostly contracted. No bladder calculus. No adrenal abnormalities. Lobulated uterus is pres ent with small fibroids present. Pattern is similar to comparison. No primary ovarian process seen. A 2.1 centimeter lymph node is present along the left external iliac chain. A few additional small und er 1 centimeter lymph nodes are present along the left iliac chain. Small sub centimeter periaortic l ymph nodes are present. No dilated bowel loops or bowel wall thickening. Appendix is normal. No free air, free fluid or infla mmatory stranding. No hernia, mass or bulky lymphadenopathy. Prominent disc and bone degenerative changes are present. Facet joint degenerative changes prominent the lower lumbar spine. L5 pars interarticularis defect present. There is less than grade 1 spondylol isthesis. IMPRESSION: No hydronephrosis, obstructing calculus or acute finding identifiable. Patient has a punctate nonobstructing calyx calculus on the right. No acute GI process identified. No free air or other emergent finding. Lobulated fibroid uterus similar to comparison. No primary ovarian process seen. Left external iliac chain 2.1 centimeter lymph node enlarged from 2018. A few additional smaller aort oiliac lymph nodes seen. Follow-up CT imaging in 4-6 months could be utilized to monitor these lymph nodes.
--- NOTE | 2021-04-30 20:32 | EDPHYS ---
Physician Documentation [facility] Name: Alda Paz Age: 55 yrs Sex: Female : 1965 Arrival Date: 04/30/2021 Time: 17:10 Bed 15 Private MD: Sharron Luna H ED Physician Josiah Walton HPI: 04/30 17:46 This 55 yrs old Female presents to ER via Ambulatory with complaints of Back pm1 Pain. 17:46 The patient presents with pain that is acute. The symptoms are located in the right mid pm1 back. Onset: The symptoms/episode began/occurred 2 day(s) ago. Location: right lower quadrant. Associated signs and symptoms: Pertinent positives: nausea, Pertinent negatives: dysuria, fever, vomiting. The problem was sustained from unknown cause. Modifying factors: The patient symptoms are alleviated by nothing, the patient symptoms are aggravated by nothing. Severity of symptoms: in the emergency department the symptoms are unchanged. The patient has not recently seen a physician. Historical: - Allergies: 17:12 Aspirin; sv - PMHx: 17:12 Hypertension; sv - Immunization history:: Client reports having NOT received the Covid vaccine. - Social history:: Smoking status: Patient denies any tobacco usage or history of. ROS: 17:46 Constitutional: Negative for fever, chills, and weight loss, Cardiovascular: Negative pm1 for chest pain, palpitations, and edema, Respiratory: Negative for shortness of breath, cough, wheezing, and pleuritic chest pain. 17:46 Abdomen/GI: Negative for abdominal pain, nausea, vomiting, diarrhea, and constipation. 17:46 : Negative for injury, bleeding, discharge, and swelling, MS/Extremity: Negative for injury and deformity, Skin: Negative for injury, rash, and discoloration. 17:46 Back: Positive for flank pain, on the right. 17:46 All other systems are negative. Exam: 17:46 Constitutional: This is a well developed, well nourished patient who is awake, alert, pm1 and in no acute distress. Head/Face: Normocephalic, atraumatic. 17:46 Back: No spinal tenderness. No costovertebral tenderness. Full range of motion. 17:46 Skin: Warm, dry with normal turgor. Normal color with no rashes, no lesions, and no evidence of cellulitis. MS/ Extremity: Pulses equal, no cyanosis. Neurovascular intact. Full, normal range of motion. 17:46 Cardiovascular: Exam negative for acute changes, Rate: normal, Rhythm: regular, Pulses: no pulse deficits are appreciated. 17:46 Respiratory: Exam negative for acute changes, respiratory distress, shortness of breath. 17:46 Abdomen/GI: Exam negative for Inspection: abdomen appears normal, Palpation: abdomen is soft and non-tender, in all quadrants. 17:46 Back: pain, that is mild, of the right mid back. 17:46 Neuro: Exam negative for acute changes, Orientation: is normal, Mentation: is normal, Motor: is normal, moves all fours. Vital Signs: 17:12 BP 198 / 96; Pulse 82; Resp 20; Temp 98; Pulse Ox 99% ; Weight 97.52 kg; Height 5 ft. 2 sv in. (157.48 cm); Pain 8/10; 18:15 BP 198 / 98; Pulse 79; Resp 15; Pulse Ox 95% ; jl7 21:06 BP 145 / 80; Pulse 80; Resp 16; Temp 97.6; Pulse Ox 100% ; Pain 1/10; bs2 17:12 Body Mass Index 39.32 (97.52 kg, 157.48 cm) sv MDM: 17:42 Patient medically screened. pm1 20:29 Data reviewed: vital signs. Data interpreted: Pulse oximetry: on room air is 95 %. pm1 Interpretation: normal. Counseling: I had a detailed discussion with the patient and/or guardian regarding: the historical points, exam findings, and any diagnostic results supporting the discharge/admit diagnosis, lab results, radiology results, the need for outpatient follow up, to return to the emergency department if symptoms worsen or persist or if there are any questions or concerns that arise at home. 20:34 ED course: [place] reviewed. pm1 04/30 17:43 Order name: Basic Metabolic Panel; Complete Time: 18:27 pm1 04/30 17:43 Order name: CBC with Diff; Complete Time: 18:27 pm1 04/30 17:43 Order name: Hepatic Function; Complete Time: 18:27 pm1 04/30 17:43 Order name: Lipase; Complete Time: 18:27 pm1 04/30 18:50 Order name: Urine Microscopic Only; Complete Time: 19:16 pm1 04/30 18:53 Order name: Urine Dipstick-Ancillary; Complete Time: 18:57 EDMS 04/30 17:43 Order name: IV Saline Lock; Complete Time: 17:55 pm1 04/30 17:43 Order name: Labs collected and sent; Complete Time: 17:55 pm1 04/30 17:43 Order name: CT Abd/Pelvis - IV Contrast Only; Complete Time: 20:07 pm1 04/30 18:50 Order name: Urine Dipstick-Ancillary (obtain specimen); Complete Time: 18:58 pm1 Administered Medications: 17:54 Drug: morphine 4 mg Route: IVP; Site: left antecubital; jl7 18:15 Follow up: Response: No adverse reaction; Pain is decreased jl7 17:54 Drug: Zofran (Ondansetron) 4 mg Route: IVP; Site: left antecubital; jl7 18:56 Follow up: Response: No adverse reaction jl7 17:54 Drug: NS 0.9% 1000 ml Route: IV; Rate: 1000 ml; Site: left antecubital; jl7 18:45 Follow up: Response: No adverse reaction; IV Status: Completed infusion; IV Intake: jl7 1000ml 20:43 Drug: Ketorolac 30 mg Route: IVP; Site: left antecubital; bs2 21:05 Follow up: Response: No adverse reaction bs2 21:05 Drug: Flomax (tamsulosin) 0.4 mg Route: PO; bs2 21:05 Follow up: Response: No adverse reaction bs2 Disposition: 05/01 09:34 Co-signature as Attending Physician, Josiah Walton MD I agree with the assessment and richar plan of care. Disposition Summary: 04/30/21 20:30 Discharge Ordered Location: Home pm1 Problem: new pm1 Symptoms: have improved pm1 Condition: Stable pm1 Diagnosis - Unspecified renal colic pm1 Followup: pm1 - With: Emergency Department - When: As needed - Reason: Worsening of condition Followup: pm1 - With: Private Physician - When: 2 - 3 days - Reason: Recheck today's complaints, Continuance of care, Re-evaluation by your physician Discharge Instructions: - Discharge Summary Sheet pm1 - Renal Colic pm1 - Dietary Guidelines to Help Prevent Kidney Stones pm1 Forms: - Medication Reconciliation Form pm1 - Thank You Letter pm1 - Antibiotic Education pm1 - Prescription Opioid Use pm1 Prescriptions: - Tramadol 50 mg Oral Tablet - take 1 tablet by ORAL route every 8 hours as needed; 12 tablet; Refills: 0, pm1 Product Selection Permitted - Flomax 0.4 mg Oral capsule - take 1 capsule by ORAL route once daily As needed 1/2 hour following the same pm1 meal each day; 10 capsule; Refills: 0, Product Selection Permitted Signatures: Dispatcher [employer] Angelica Restrepo, RN RN Josiah Almendarez MD MD cha Marinas, Patrick, SONAL RN ICU pm1 Miguel Angel Almazan RN RN jl7 Sherice Warren bs2
--- NOTE | 2021-04-30 20:32 | ER ---
Nurse's Notes [facility] Name: Alda Paz Age: 55 yrs Sex: Female : 1965 Arrival Date: 04/30/2021 Time: 17:10 Bed 15 Private MD: Sharron Luna H Diagnosis: Unspecified renal colic Presentation: 04/30 17:11 Chief complaint: Patient states: R mid back pain x 2 days. Coronavirus screen: Client sv denies travel out of the [place] in the last 14 days. At this time, the client does not indicate any symptoms associated with coronavirus-19. Ebola Screen: No symptoms or risks identified at this time. Risk Assessment: Do you want to hurt yourself or someone else? Patient reports no desire to harm self or others. Onset of symptoms was April 28, 2021. 17:11 Method Of Arrival: Ambulatory sv 17:11 Acuity: KATIE 3 sv 17:12 Initial Sepsis Screen: Does the patient meet any 2 criteria? No. Patient's initial sv sepsis screen is negative. Does the patient have a suspected source of infection? No. Patient's initial sepsis screen is negative. Triage Assessment: 17:13 General: Appears in no apparent distress. uncomfortable, Behavior is cooperative, sv appropriate for age, restless. Pain: Complains of pain in right mid back. Neuro: Level of Consciousness is awake, alert, obeys commands, Oriented to person, place, time, situation, Gait is steady. Respiratory: Respiratory effort is even, unlabored. Historical: - Allergies: 17:12 Aspirin; sv - PMHx: 17:12 Hypertension; sv - Immunization history:: Client reports having NOT received the Covid vaccine. - Social history:: Smoking status: Patient denies any tobacco usage or history of. Screenin:45 Abuse screen: Denies threats or abuse. Denies injuries from another. Nutritional jl7 screening: No deficits noted. Tuberculosis screening: No symptoms or risk factors identified. Fall Risk IV access (20 points). Total Bosch Fall Scale indicates No Risk (0-24 pts). Assessment: 17:45 General: Appears in no apparent distress. uncomfortable, Behavior is calm, cooperative, jl7 appropriate for age. Pain: Complains of pain in right mid back Pain radiates to suprapubic area and right lower quadrant Pain currently is 8 out of 10 on a pain scale. Pain began 2-3 days ago. Is continuous. Neuro: Level of Consciousness is awake, alert, obeys commands, Oriented to person, place, time, situation. Cardiovascular: Patient's skin is warm and dry. Respiratory: Airway is patent Respiratory effort is even, unlabored, Respiratory pattern is regular, symmetrical. : Reports pain in right flank(s), with urination. Derm: Skin is pink, warm \T\ dry. 18:56 Reassessment: Patient appears in no apparent distress at this time. Patient and/or jl7 family updated on plan of care and expected duration. Pain level reassessed. Patient is alert, oriented x 3, equal unlabored respirations, skin warm/dry/pink. Patient states feeling better. Patient states symptoms have improved. Vital Signs: 17:12 BP 198 / 96; Pulse 82; Resp 20; Temp 98; Pulse Ox 99% ; Weight 97.52 kg; Height 5 ft. 2 sv in. (157.48 cm); Pain 8/10; 18:15 BP 198 / 98; Pulse 79; Resp 15; Pulse Ox 95% ; jl7 21:06 BP 145 / 80; Pulse 80; Resp 16; Temp 97.6; Pulse Ox 100% ; Pain 1/10; bs2 17:12 Body Mass Index 39.32 (97.52 kg, 157.48 cm) sv ED Course: 17:10 Patient arrived in ED. ds1 17:10 Sharron Luna DO is Private Physician. ds1 17:11 Arm band placed on. sv 17:12 Triage completed. sv 17:24 Sonia Xiong, RN is Primary Nurse. ph 17:37 Jose Crow, AGRICULTURAL ENGINEERING TEACHER is PHCP. pm1 17:37 Josiah Walton MD is Attending Physician. pm1 17:45 Patient has correct armband on for positive identification. Bed in low position. Call jl7 light in reach. Side rails up X 1. Pulse ox on. NIBP on. 17:45 Initial lab(s) drawn, by ED staff, sent to lab. Inserted saline lock: 20 gauge in left jl7 antecubital area, using aseptic technique. ,using aseptic technique. inserted by KIRILL, shirt maker Blood collected. 18:01 Primary Nurse role handed off by Sonia Xiong RN jl7 18:01 Miguel Angel Almazan RN is Primary Nurse. jl7 18:56 Urine collected: clean catch specimen, clear. jl7 19:15 Primary Nurse role handed off by Miguel Angel Almazan RN mw2 19:32 CT Abd/Pelvis - IV Contrast Only In Process Unspecified. EDMS 21:05 No provider procedures requiring assistance completed. IV discontinued, intact, bs2 bleeding controlled, No redness/swelling at site. Administered Medications: 17:54 Drug: morphine 4 mg Route: IVP; Site: left antecubital; jl7 18:15 Follow up: Response: No adverse reaction; Pain is decreased jl7 17:54 Drug: Zofran (Ondansetron) 4 mg Route: IVP; Site: left antecubital; jl7 18:56 Follow up: Response: No adverse reaction jl7 17:54 Drug: NS 0.9% 1000 ml Route: IV; Rate: 1000 ml; Site: left antecubital; jl7 18:45 Follow up: Response: No adverse reaction; IV Status: Completed infusion; IV Intake: jl7 1000ml 20:43 Drug: Ketorolac 30 mg Route: IVP; Site: left antecubital; bs2 21:05 Follow up: Response: No adverse reaction bs2 21:05 Drug: Flomax (tamsulosin) 0.4 mg Route: PO; bs2 21:05 Follow up: Response: No adverse reaction bs2 Intake: 18:45 IV: 1000ml; Total: 1000ml. jl7 Outcome: 20:30 Discharge ordered by MD. pm1 21:05 Discharged to home ambulatory, with family. bs2 21:05 Condition: improved 21:05 Discharge instructions given to patient, family, Instructed on discharge instructions, follow up and referral plans. medication usage, Demonstrated understanding of instructions, follow-up care, medications, Prescriptions given X 2. 21:07 Patient left the ED. bs2 Signatures: Dispatcher [employer] EDMS Angelica Carbaajl RN RN sv Sanford, Demi ds1 Sonia Xiong RN RN ph Marinas, Patrick, AGRICULTURAL ENGINEERING TEACHER AGRICULTURAL ENGINEERING TEACHER pm1 Miguel Angel Almazan RN RN jl7 Carlene Rucker mw2 Sherice Warren bs2 Corrections: (The following items were deleted from the chart) 17:14 17:11 Acuity: KATIE 4 sv sv 17:14 17:12 Pulse 82bpm; Resp 20bpm; Pulse Ox 99%; Temp 98F; 97.52 kg; Height 5 ft. 2 in.; sv BMI: 39.3; Pain 8/10; sv
[2021-04-30] MEDS ORDERED: KETOROLAC 30 MG/ML INJ ONE (21:00)
[2021-04-30] MEDS ORDERED: TAMSULOSIN 0.4 MG SR CAP ONE (21:19)
[2021-04-30 21:36] VITALS: BP 145/80; TEMP 97.6; O2SAT 100
== END 2021-04-30 21:07 | disposition home or self-care (01) ==
LOC: ER 17:07
DX: N23 Unspecified renal colic (principal); I10 Essential (primary) hypertension; Z88.6 Allergy status to analgesic agent
CPT/HCPCS: 96361; 85025; 80048; 36415; 80076; 83690; 74177; 96375; 96374; 99284; Q9967; J7030; J2405; 81003; 81015

== ENCOUNTER 2021-05-23 10:30 | Observation (INO) | payer OTHER ==
--- OUTSIDE RECORDS SUMMARY | 2021-05-23 13:21 | XMS REPORT | Continuity of Care Document ---
:1965 Author Organization [facility] t Address [address] [place] [address] Care Team Providers Name Role Phone Betsey Serna Attending Clinician Singer LOPES Attending Clinician Problems This patient has no known problems. Allergies, Adverse Reactions, Alerts This patient has no known allergies or adverse reactions. Medications This patient has no known medications. Procedures This patient has no known procedures. Encounters Start End Encounter Admission Attending Care Care Encounter Source Date/Time Date/Time Type Type Clinicians Facility Department ID 2021-05-19 2021-05-19 [facility] [id number] 10:52:00 14:30:00 Joselin Pierre [id number] [place] [id number] [place] [id number] 2020-10-01 2020-10-01 Emergency [facility] [id number] 09:08:00 12:24:00 Samson Pierre [id number] [place] [id number] [place] [id number] Results This patient has no known results.
[2021-05-23 15:03] LABS: Absolute Lymphocytes (CBC) 1.5 K/uL (0.7-4.9); Basophils % 0.8 % (0-1.3); Lymphocytes % 22.1 % (15.3-44.8); MPV 6.9 fL (7.6-11.3); RBC Red Blood Cell Count 4.94 M/uL (3.86-4.86)
[2021-05-23 15:08] LABS: Albumin 3.2 g/dL (3.4-5.0); Bilirubin Direct 0.1 mg/dL (0-0.2); Bilirubin Total 0.4 mg/dL (0.2-1.0); Potassium 3.5 mmol/L (3.5-5.1); Protein, Total 7.3 g/dL (6.4-8.2)
[2021-05-23 15:43] VITALS: BMI 39.3
[2021-05-23 16:00] VITALS: O2SAT 98
[2021-05-23] MEDS: MORPHINE 2 MG/ML SYR IV PRN ×2 (16:10→21:15)
[2021-05-23] MEDS: Levofloxacin500mg IV 500 MG/100 ML BAG IV SCH (16:11)
[2021-05-23] MEDS: NA CHLORIDE 0.9% 1,000 ML IV SCH ×2 (16:11→21:20)
[2021-05-23] MEDS: ONDANSETRON 4 MG/2 ML VIAL IV PRN ×2 (16:11→21:17)
[2021-05-23 16:16] LABS: Urine Appearance CLEAR (Clear); Urine Blood NEGATIVE (Negative); Urine Color YELLOW (Yellow); Urine Glucose NEGATIVE (Negative); Urine Protein NEGATIVE (Negative); Urine Specific Gravity >=1.030 (1.005-1.030)
[2021-05-23 16:26] LABS: Urine Bilirubin 3+ (Negative); Urine Microscopic Reflex NO UMIC
--- NOTE | 2021-05-23 17:49 | RAD REPORT ---
EXAM DESCRIPTION: MRI - Cholangiogram - 05/23/2021 5:33 pm CLINICAL HISTORY: abdominal pain COMPARISON: Abdomen Exam Limited dated 05/22/2021 FINDINGS: No focal liver lesions. The gallbladder is unremarkable. Kidneys are unremarkable. Spleen and pancreas are unremarkable. No biliary ductal dilatation is identified. No choledocholithiasis. No gallbladder stone identified. IMPRESSION: Negative for choledocholithiasis or biliary ductal dilatation.
[2021-05-23] MEDS: METRONIDAZOLE 500mg IVPB 500 MG/100 ML BAG IV SCH (18:00)
--- NOTE | 2021-05-23 18:29 | PN ---
Date of Progress Note: 05/23/2021 The patient was seen late this afternoon. She complained of increasing pain and on examination she i s significantly more tender and more localized to the right upper quadrant subcostal area and was see n a couple of days ago awaiting the MRCP. Symptomatic treatment has been started including morphine for pain and Levaquin and Flagyl for infectious process. HR/MODL Voice ID: [id number] Report ID: [id number]
--- NOTE | 2021-05-23 18:35 | HP ---
Date of Admission: 05/23/2021 Chief Complaint: Alda hawkins complain right upper abdominal pain. History Of Present Illness: The patient states pain started approximately 3 weeks ago and was consis tent enough she came to the hospital. CAT scan was done and reveals stone in the kidney, otherwise b asically normal, and she was discharged on symptomatic treatment; however, she stated over the next w yurok or so, the pain became more intense. It was aggravated by eating and drinking. There was no vom iting or diarrhea; however, the pain became significant enough she went to the ER in [place] at [facility] time, they told her that it was perhaps a liver tumor and she should see her PCP. When seen in [facility] office a couple of days ago, pain was controlled by anti-inflammatories; however, she states it is becoming more frequent and more severe, is radiating along her right upper abdomen. The aggravating factor, which is increased past few days, was any intake, although said her bowel movements and urina tion were fine. Physical exam at that time revealed some tenderness in the right upper quadrant cons istent with gallbladder disease. Therefore, an ultrasound was scheduled. The latter showed some richar nges in the gallbladder suspicious for stones, possibility of semi-acute gallbladder was considered i n the differential. Since the pain was more severe, radiologist recommended and agreed with doing an MRCP and she was becoming increasingly she was admitted for more intensive care and possi ble surgical procedure. Past Medical History: Hypertension controlled with medication. No weight problems. Has been in [facility]. Family History: No family history of gallbladder disease; however, sister did have stomach cancer in her 50s. Social History: Nonsmoker, nondrinker. Physical Examination: General: The patient is uncomfortable appearing, moderately obese, middle-aged female. Vital Signs: Stable vital signs. Head and Neck: Normocephalic. Pupils are equal and reactive to light and accommodation. Fundi nega tive. Trachea midline. Thyroid not palpable. ENT: Negative. Chest: Clear to P and A. Cardiovascular: PMI midclavicular line. Heart sounds normal. Peripheral pulses present and equal b ilaterally. Abdomen: Marked tenderness in the right upper quadrant. No guarding, rebound, tenderness, or rigidi ty. Bowel sounds are hyperactive. Extremities: Good tone and movement bilaterally. Reflexes physiologic. Rectal: Deferred. Pelvic: Deferred. Impression: Acute and subacute cholecystitis secondary to cholelithiasis. Plan: The patient will be admitted, placed on IV antibiotics. MRCP will be obtained. Depending on the results, she may require a surgical procedure. Consultation was therefore obtained with her surg tomer. Her blood work past 2 ER visits including LFTs have been normal. HR/MODL Voice ID: [id number]
[2021-05-23] MEDS: hydroCHLOROthiazide 12.5 MG CAP PO SCH ×2 (21:00→21:19)
[2021-05-23] MEDS: lisinopriL 20 MG TAB PO SCH ×2 (21:00→21:18)
[2021-05-23] MEDS ORDERED: MORPHINE 4 MG/ML SYR IV ONE (21:29)
[2021-05-23] MEDS ORDERED: MORPHINE 4 MG/ML SYR IV PRN (21:30)
[2021-05-23] MEDS ORDERED: MORPHINE 10 MG/ML VIAL IV PRN (21:31)
[2021-05-24] MEDS: METRONIDAZOLE 500mg IVPB 500 MG/100 ML BAG IV SCH ×4 (00:33→18:30)
[2021-05-24 03:25] LABS: Urine Appearance CLEAR (Clear); Urine Blood NEGATIVE (Negative); Urine Color YELLOW (Yellow); Urine Glucose NEGATIVE (Negative); Urine Protein NEGATIVE (Negative)
[2021-05-24 03:31] LABS: Urine Bilirubin POSITIVE (Negative)
[2021-05-24 03:32] LABS: Urine Microscopic Reflex ORDER UMIC
[2021-05-24 03:41] LABS: Urine Bacteria >50 /HPF (<20); Urine Mucus 2+ /HPF (NONE SEEN); Urine Yeast FEW (NONE SEEN)
[2021-05-24] MEDS ORDERED: MORPHINE 4 MG/ML SYR ONE (05:34)
[2021-05-24] MEDS: NA CHLORIDE 0.9% 1,000 ML IV SCH ×2 (05:50→14:00)
[2021-05-24 05:55] LABS: Absolute Lymphocytes (CBC) 1.5 K/uL (0.7-4.9); Basophils % 0.5 % (0-1.3); Lymphocytes % 22.9 % (15.3-44.8); MPV 6.8 fL (7.6-11.3); RBC Red Blood Cell Count 4.77 M/uL (3.86-4.86)
[2021-05-24 06:11] LABS: ALT/SGPT 24 U/L (12-78); AST/SGOT 16 U/L (15-37); Alkaline Phosphatase 83 U/L (45-117); BUN Blood Urea Nitrogen 19 mg/dL (7-18); Bicarbonate 27 mmol/L (21-32); Bilirubin Direct 0.2 mg/dL (0-0.2); Bilirubin Total 0.7 mg/dL (0.2-1.0); Glucose Level 105 mg/dL (74-106); Lipase 85 U/L (73-393); Phosphorus 3.2 mg/dL (2.5-4.9); Potassium 3.6 mmol/L (3.5-5.1); Protein, Total 6.9 g/dL (6.4-8.2); Sodium Level 143 mmol/L (136-145)
[2021-05-24] MEDS ORDERED: KCL 20 MEQ/100 mL IVPB 20 MEQ/100 ML BAG IV SCH (07:00)
[2021-05-24] MEDS ORDERED: MORPHINE 4 MG/ML SYR IV PRN (07:36)
[2021-05-24] MEDS: hydroCHLOROthiazide 12.5 MG CAP PO SCH ×2 (09:00→21:31)
[2021-05-24] MEDS: lisinopriL 20 MG TAB PO SCH ×2 (09:00→21:00)
[2021-05-24] MEDS: Levofloxacin500mg IV 500 MG/100 ML BAG IV SCH (09:00)
--- NOTE | 2021-05-24 09:47 | RAD REPORT ---
EXAM DESCRIPTION: CT - Stone Protocol - 05/24/2021 7:56 am CLINICAL HISTORY: Abdominal pain. COMPARISON: April 30, 2021 TECHNIQUE: Computed axial tomography of the abdomen pelvis was obtained without oral or IV contrast. Lack of IV and oral contrast limits evaluation of solid organs, bowel, and vessels. Coronal reformat dominik images were obtained and reviewed. All CT scans are performed using dose optimization technique as appropriate and may include automated exposure control or mA/KV adjustment according to patient size. FINDINGS: 2 millimeter calculus right kidney. No hydronephrosis. A left renal calculus is not seen. No hydronephrosis. A ureteral calculus is not visualized. No bladder calculus Fatty liver Splenic granulomata Pancreas and adrenals appear grossly normal There is no evidence of diverticulitis. The appendix appears normal Mild to moderate anterior subluxation L5 on S1. Spondylolysis L5. Small umbilical hernia Fibroid uterus 9 millimeter short axis left external iliac lymph node IMPRESSION: 2 millimeter nonobstructing right renal calculus
--- NOTE | 2021-05-24 12:43 | PN ---
Date of Progress Note: 05/24/2021 The patient had a difficult night with significant pain in the sacral area, probably unrelated to thi s activity. She stated that it happened one other time, about 6 months ago while at work. She was s een in the ER in [place] and given analgesics and has not had a problem since. Stated this happened after she was up on the commode. Although UTI is suggested by urine, she is asymptomatic. However, her pain in the right upper quadrant and anterior rib area is still present, there has been no valentine e with or without diet. On further questioning, she states that the diet in the past has been unlimi dominik; however, the past few weeks she has noted increased intolerance. The other issue is she did hav e some trauma to the anterior part of her rib cage when she was leaning over a table in an awkward po sition; however, she stated this happened sometime after the right upper quadrant discomfort and prio r to being seen in the emergency room here; however, was present and I think occurred before she went to the emergency room in [place]. In any event, HIDA scan scheduled for later today and depending on the results, we will make a determination for surgical procedure or not. HR/MODL Voice ID: [id number] Report ID: [id number]
--- NOTE | 2021-05-24 12:57 | RAD REPORT ---
EXAM DESCRIPTION: NM - Hepatobiliary System W/ Ph - 05/24/2021 12:51 pm CLINICAL HISTORY: gallbladder, right upper quadrant pain COMPARISON: Stone Protocol dated 05/24/2021 TECHNIQUE: The patient was administered 4.1 mCi Tc99m Choletec. Imaging of the right upper quadrant was performed initially for up to 60 minutes. The patient was administered synthetic CCK over a slow 30 minute infusion. SHIRAZ measurements were obtained of the gallbladder and an ejection fraction calcu lated. Synthetic CCK dosage was 2.0 mgm. FINDINGS: There is homogeneous uptake of radiopharmaceutical throughout the liver. There is no delay in visualization of the biliary tree or duodenum. Gallbladder visualizes within normal time limits. The calculated ejection fraction is 41%, normal ran ge. The patient reported no pain prior to the procedure and no symptoms during or subsequent to synthetic CCK infusion. IMPRESSION: Patent cystic duct and patent sphincter of Oddi. No delay in visualization of the gallbl adder, biliary tree, or duodenum. Ejection fraction is 41%, normal range. Patient reported no pre-procedure pain, and no pain during or subsequent to synthetic CCK infusion.
--- NOTE | 2021-05-24 13:00 | CON ---
Date of Consultation: 05/23/2021 Reason: Abdominal pain. History Of Present Illness: The patient is a 55-year-old female, who was admitted through Dr. Can gomez's office with approximately 3-week history of right upper quadrant abdominal pain going to the back . No nausea, vomiting, bloating, belching, or heartburn. It was postprandial in nature. There was no sore throat, runny nose, cough, headaches, or dizziness. No chest pain. No fever. Occasional ch ills. No diarrhea or constipation. In the, she has had occasional bright red blood per rectum secon joanie to hemorrhoids. No hematuria, occasional dysuria. Review of systems, otherwise, unremarkable. She went to the ER in [place] and to our hospital, it was in the last 3 weeks and all of the workup was negative except for an ultrasound showing possible stones and they recommended an MRCP. Therefo re, she was admitted for pain management and further workup. Past Medical History: Hypertension. Past Surgical History: Left shoulder surgery. Allergies: INCLUDE ASPIRIN. Social History: She denies smoking or drinking. Family History: Significant for sister with stomach cancer. Physical Examination: Vital Signs: Stable. She is currently afebrile. General: She is awake, alert, and oriented x3. Head and Neck: Cranial nerves 2 through 12 are grossly within normal limits. No neck masses. No JV D. Throat clear. Neck is supple. Chest: Clear. Heart: S1 and S2. Abdomen: Soft, nondistended. Positive bowel sounds. Tenderness in the right upper quadrant. There is a little bit more tenderness in the right lower ribs as well. There is no peritonitis. Extremities: Adequately perfused. Nontender. Neuro: Nonfocal. Laboratory Data: White count is normal. There is no left shift. LFTs are within normal limits. Am ylase and lipase are within normal limits. Urine shows some bacteria, however, esterase and nitrite are trace for the esterase and negative for the nitrites. The culture has been reflexed. Ultrasound and abdominal CT reviewed. HIDA scan had been ordered; however, the patient had pain medicine so th at had to be delayed to this afternoon. The abdominal CT did show a kidney stone in the kidney, but not obstructing. The ultrasound shows that was done 2 days ago, possible cholelithiasis. Follow up MRCP would be recommended. The patient had an MRCP done as well and it was negative for choledocholi thiasis or biliary duct dilatation. The gallbladder was unremarkable. Assessment: 55-year-old female with abdominal pain, etiology is unclear. Recommendations: Discussed the case in detail with Dr. Briceño. We will go ahead and get a HIDA sca n, see what it shows and also get some anterior rib series to make sure she does not have rib issues, fractures, or bruising that could be accounting for her symptoms. Should those be negative, then pe rhaps treatment with nonsteroidals for the pain and GI workup as an outpatient would be recommended i f the patient can tolerate diet and be discharged. If the patient does have gallbladder disease, the patient will require cholecystectomy. /MODL Voice ID: [id number] Report ID: [id number]
[2021-05-24] MEDS ORDERED: LORAZEPAM 1 MG TABLET PO ONE (14:06)
--- NOTE | 2021-05-24 14:21 | RAD REPORT ---
EXAM DESCRIPTION: Ribs Right - 05/24/2021 1:16 pm CLINICAL HISTORY: right anterior rib xray COMPARISON: Cholangiogram dated 05/23/2021; Stone Protocol dated 05/24/2021 FINDINGS: No displaced rib fracture is evident. No non-displaced rib fracture suspected. No aggressive rib lesion. No underlying pneumothorax, effusion, infiltrate or pulmonary contusion. IMPRESSION: Negative right rib series.
[2021-05-24] MEDS ORDERED: LORAZEPAM 1 MG TABLET PO PRN (14:27)
[2021-05-24] MEDS: predniSONE 20 MG TAB PO SCH (14:40)
--- NOTE | 2021-05-24 16:45 | PN ---
Date of Progress Note: 05/24/2021 The patient was again seen this afternoon following her gallbladder function test which showed normal functioning gallbladder. Discussing the issue with the patient, I think that number of issues were going on and possibly related to a subacute cholecystitis, trauma to the rib cage, which occurred as mentioned before. After the initial discomfort in the area, renal calculus does not seem to come int o play and some significant changes in the lumbosacral area, which has precipitated the pain. In fac t this afternoon she tells me the pain is more severe in the back area than it is in the right upper quadrant. Apparently, she has had some epidurals in this area approximately 6 months ago as well but does not know specific diagnosis. Therefore, the plan will be to start her back on a diet, which wi ll gradually be advanced. Try prednisone 20 mg a day, Ativan 1 mg 3 times a day, converted to saline lock. PT evaluated in a.m. and tolerates fluids today. Advance to a soft diet in the morning and p ossibly discharge her on appropriate medications including antibiotics, which will be given p.o. as a n IV, Ativan and steroids. HR/MODL Voice ID: [id number] Report ID: [id number]
[2021-05-24] MEDS ORDERED: LORAZEPAM 1 MG TABLET PO SCH (21:00)
[2021-05-25] MEDS: METRONIDAZOLE 500mg IVPB 500 MG/100 ML BAG IV SCH ×3 (00:25→12:00)
[2021-05-25] MEDS ORDERED: levoFLOXacin 500 MG TAB PO SCH (09:00)
[2021-05-25] MEDS: predniSONE 20 MG TAB PO SCH (09:38)
[2021-05-25] MEDS: hydroCHLOROthiazide 12.5 MG CAP PO SCH (09:39)
[2021-05-25] MEDS: lisinopriL 20 MG TAB PO SCH (09:39)
--- NOTE | 2021-05-25 11:51 | PN ---
Date of Progress Note: 05/25/2021 Subjective: The patient still states she has discomfort, sometimes pain under the right rib cage, ex tending laterally. She states now, however, she ate just fine with no difference in her symptoms. O n further questioning, the patient did state that her brother apparently had a colon cancer around th e rectal area with the workup being negative up-to-date other than the questionable ultrasound for th e gallbladder. The patient needs to be scoped, colonoscopy for sure and possibly EGD. We will disch arge her on Levaquin 500 mg a day for possible UTI and her subacute cholecystitis. Prednisone 20 mg a day for underlying possible intercostal nerve contusion and her lower back problems and Ativan on a p.r.n. basis. She is instructed to take Tylenol extra-strength for pain. Continue with her modifie d diet and to follow up with me in next week or referral for GI for a colonoscopy. Continue on lisin opril as well. HR/MODL Voice ID: [id number] Report ID: [id number]
[2021-05-25 12:43] VITALS: BP 135/73; TEMP 96.9
== END 2021-05-25 13:09 | disposition home or self-care (01) ==
LOC: 2ND 13:19
PROVIDERS: ADMIT Family Medicine; ATTEND Family Medicine
DX: K81.0 Acute cholecystitis (principal); I10 Essential (primary) hypertension; Z20.822 Contact with and (suspected) exposure to COVID-19; Z88.6 Allergy status to analgesic agent; Z80.0 Family history of malignant neoplasm of digestive organs
CPT/HCPCS: 87088; 85025 ×2; 87086; 80048 ×2; 36415 ×2; 82150; 83735; 84100; 80076 ×2; 83690; 76377; 74176; 71100; 74181; 97161; 78227; U0003; J7512 ×2; J3480; J2270 ×2; J7030; J2405 ×2; J2805; A9537; G0379; G0378 ×3; 81003; 81015

== ENCOUNTER 2023-09-10 10:24 | Emergency (ER) | payer OTHER, SELFPAY ==
--- OUTSIDE RECORDS SUMMARY | 2023-09-10 10:30 | XMS REPORT | Continuity of Care Document ---
:1965 Author Organization [facility] t Address [address] [place] [address] Care Team Providers Name Role Phone Lab, Adc Fam Pob I Attending Clinician Unavailable Lois Estrada Attending Clinician Doctor Unassigned, [place] Attending Clinician Unavailable Nini Mckenzie MD Attending Clinician Joselin Serna Attending Clinician RADIOLOGY Attending Clinician Unavailable Samson García DO Attending Clinician Payers Payer Name Policy Type Policy Number Effective Date Expiration Date S hallie L GBR[employer] CLAIMS [id number] 2019 00:00:00 Problems Condition Condition Condition Status Onset Resolution Last Treating Co mments Source Name Details Category Date Date Treatment Clinician Date No known No known Disease Unive rs active active ity of problems problems [facility] Allergies, Adverse Reactions, Alerts Allergy Allergy Status Severity Reaction(s) Onset Inactive Treating Comm ents Source Name Type Date Date Clinician ASPIRIN DRUG Active Hives Univers INGREDI 7-16 ity of 00:00: [place] 00 Medical [facility] Aspirin Propensi Active Hives 0 Able to Univer s ty to 7-16 take ity of adverse 00:00: ibuprofen [place] reaction 00 and Medical s naproxen Branch without reaction Social History Social Habit Start Date Stop Date Quantity Comments Source Exposure to Not sure [facility] SARS-CoV-2 (event) Medica l [place] Sex Assigned At [birth year] [facility] 00:00:00 00:00:00 Medical Branch Smoking Status Start Date Stop Date Source Unknown if ever smoked [facility] Medications Ordered Filled Start Stop Current Ordering Indication Dosage Frequency Signature Comments Components Source Medication Medication Date Date Medication? Clinician (SIG) Name Name ondansetron 2020- No 4mg 4 mg, Slow Univers (ZOFRAN 05-19 IV Push, ity of (PF)) 19:45: 18:39 ONCE, 1 [place] injection 4 00 :00 dose, [facility] ical mg 05/19/21 at Branch 1445, GORAN morpHINE No 2mg 2 mg, Slow Un michael injection 2 05-19 IV Push, ity of mg 19:45: 18:39 ONCE, 1 [place] 00 :00 dose, [facility] Medical 05/19/21 at Branch 1445, STAT iopamidol 2020- No [id number] 120mL 120 mL, Univers (ISOVUE 05-19 Intravenou ity o f 370-500 mL) 17:53: 17:50 s, ONCE, 1 [place] injection 00 :00 dose, Sun Medic al 120 mL 05/19/21 at Branch 1315, Routine HYDROcodone 2020- No 1{tbl} 1 tablet, Univers -acetaminop 05-19 Oral, ity of hen (NORCO 17:15: 16:30 ONCE, 1 Willi as 5) 5-325 mg 00 :00 dose, [facility] Med ical tablet 1 05/19/21 at [facility] h tablet 1215, GORAN traMADoL 50 2020- No [id number] 50mg Take 1 Uni vers mg tablet 05-19 tablet by ity of 00:00: 04:59 mouth [place] 00 :00 every 6 Medical (six) Branch hours as needed for Pain (scale 7-10) for up to 5 days. Indication s: acute pain naproxen 2019-10 Yes [id number] 550mg Take 1 U nivers sodium 2-07 tablet by ity of (ANAPROX 00:00: mouth 2 [place] DS) 550 mg 00 (two) Medical tablet times Branch daily with meals. methylPREDN 2020- Yes [id number] Take by Univers ISolone 2-07 mouth ity of (MEDROL, 00:00: SEE-INSTRU Willi as EBER,) 4 mg 00 CTIONS. Medica l tablets follow Branch package directions naproxen 2019-10 Yes [id number] 550mg Take 1 U nivers sodium 2-07 tablet by ity of (ANAPROX 00:00: mouth 2 [place] DS) 550 mg 00 (two) Medical tablet times Branch daily with meals. methylPREDN 2019-10 Yes [id number] Take by Univers ISolone 2-07 mouth ity of (MEDROL, 00:00: SEE-INSTRU Willi as EBER,) 4 mg 00 CTIONS. Medica l tablets follow Branch package directions naproxen 2019-10 Yes [id number] 550mg Take 1 U nivers sodium 2-07 tablet by ity of (ANAPROX 00:00: mouth 2 [place] DS) 550 mg 00 (two) Medical tablet times Branch daily with meals. methylPREDN 2019-10 Yes [id number] Take by Univers ISolone 2-07 mouth ity of (MEDROL, 00:00: SEE-INSTRU Willi as EBER,) 4 mg 00 CTIONS. Medica l tablets follow Branch package directions naproxen 2019-10 Yes [id number] 550mg Take 1 U nivers sodium 2-07 tablet by ity of (ANAPROX 00:00: mouth 2 [place] DS) 550 mg 00 (two) Medical tablet times Branch daily with meals. methylPREDN 2019-10 Yes [id number] Take by Univers ISolone 2-07 mouth ity of (MEDROL, 00:00: SEE-INSTRU Willi as EBER,) 4 mg 00 CTIONS. Medica l tablets follow Branch package directions naproxen 2019-10 Yes [id number] 550mg Take 1 U nivers sodium 2-07 tablet by ity of (ANAPROX 00:00: mouth 2 [place] DS) 550 mg 00 (two) Medical tablet times Branch daily with meals. methylPREDN 2019- Yes [id number] Take by Univers ISolone 2-07 mouth ity of (MEDROL, 00:00: SEE-INSTRU Willi as EBER,) 4 mg 00 CTIONS. Medica l tablets follow Branch package directions methocarbam 2019-10 2020- No [id number] 500mg Take 1 Univers oL 500 mg 12-02 tablet by ity of tablet 00:00: 05:59 mouth 3 [place] 00 :00 (three) Medical times Branch daily for 5 days. ibuprofen 2018-0 Yes 600mg Take 1 Unive rs 600 mg 4-07 tablet by ity of tablet 00:00: mouth [place] 00 every 8 Medical (eight) Branch hours as needed (only use if Tylenol does not help). ibuprofen 2018-0 Yes 600mg Take 1 Unive rs 600 mg 4-07 tablet by ity of tablet 00:00: mouth [place] 00 every 8 Medical (eight) Branch hours as needed (only use if Tylenol does not help). ibuprofen 2018-0 Yes 600mg Take 1 Unive rs 600 mg 4-07 tablet by ity of tablet 00:00: mouth [place] 00 every 8 Medical (eight) Branch hours as needed (only use if Tylenol does not help). ibuprofen 2017-0 Yes 600mg Take 1 Unive rs 600 mg 4-07 tablet by ity of tablet 00:00: mouth [place] 00 every 8 Medical (eight) Branch hours as needed (only use if Tylenol does not help). ibuprofen 2017-0 Yes 600mg Take 1 Unive rs 600 mg 4-07 tablet by ity of tablet 00:00: mouth [place] 00 every 8 Medical (eight) Branch hours as needed (only use if Tylenol does not help). Vital Signs Vital Name Observation Time Observation Value Comments Source Systolic blood 2021-05-19 18:10:00 173 mm[Hg] Univer sity of pressure [facility] Diastolic blood 2021-05-19 18:10:00 92 mm[Hg] [facility] Heart rate 2021-05-19 18:10:00 59 /min [facility] Respiratory rate 2021-05-19 18:10:00 21 /min [facility] Oxygen saturation in 2021-05-19 18:10:00 94 /min [facility] Arterial blood by [facility] Pulse oximetry [place] Body temperature 2021-05-19 16:32:34 36.5 Kellie [facility] Body height 2021-05-19 16:01:00 157.5 cm [facility] Body weight 2021-05-19 16:01:00 95.255 kg [facility] BMI 2021-05-19 16:01:00 38.41 kg/m2 [facility] Systolic blood 2021-05-19 18:10:00 173 mm[Hg] Univer sity of pressure [facility] Diastolic blood 2021-05-19 18:10:00 92 mm[Hg] Unive rsity of pressure [facility] Heart rate 2021-05-19 18:10:00 59 /min [facility]i [facility] [place] [facility] Respiratory rate 2021-05-19 18:10:00 21 /min Univ ersity of [facility] Oxygen saturation in 2021-05-19 18:10:00 94 /min University of Arterial blood by [place] [facility] [facility] Pulse oximetry Branch Body temperature 2021-05-19 16:32:34 36.5 Kellie Univ ersity [facility] [place] [facility] Body height 2021-05-19 16:01:00 157.5 cm [facility] [place] [facility] Body weight 2021-05-19 16:01:00 95.255 kg [facility] [place] [facility] BMI 2021-05-19 16:01:00 38.41 kg/m2 [facility] [place] [facility] Systolic blood 2020-10-01 18:00:00 156 mm[Hg] Univer sity of pressure [facility] Diastolic blood 2020-10-01 18:00:00 77 mm[Hg] Unive rsity of pressure [facility] Heart rate 2020-10-01 18:00:00 54 /min [facility] [place] [facility] Respiratory rate 2020-10-01 18:00:00 11 /min Univ ersity of [place] [facility] Oxygen saturation in 2020-10-01 18:00:00 100 /min University of Arterial blood by [place] [facility] Pulse oximetry Branch Body temperature 2020-10-01 16:42:00 36.72 Kellie Univ ersity [facility] [place] [facility] Body weight 2020-10-01 15:11:00 95.255 kg [facility] [place] [facility] BMI 2020-10-01 15:11:00 36.05 kg/m2 [facility] [place] [facility] Systolic blood 2020-10-01 18:00:00 156 mm[Hg] Univer sity of pressure [facility] Diastolic blood 2020-10-01 18:00:00 77 mm[Hg] [facility] rsity of pressure [facility] Heart rate 2020-10-01 18:00:00 54 /min [facility] Respiratory rate 2020-10-01 18:00:00 11 /min [facility] Oxygen saturation in 2020-10-01 18:00:00 100 /min [facility] Arterial blood by [facility] Pulse oximetry Branch Body temperature 2020-10-01 16:42:00 36.72 Kellie [facility] Body weight 2020-10-01 15:11:00 95.255 kg [facility] BMI 2020-10-01 15:11:00 36.05 kg/m2 [facility] Procedures Procedure Date / Time Performed Performing Clinician Sour e CT ABDOMEN PELVIS W 2021-05-19 18:03:23 [facility] CONTR[facility] COMP. METABOLIC PANEL 2021-05-19 17:07:00 Joselin Mason [facility] ([id number]) Medical Branch LIPASE 2021-05-19 17:07:[address] [facility] y [facility] TROPONIN I 2021-05-19 17:07:[address] [facility] y [facility] XR RIBS 4+ VW RIGHT 2021-05-19 16:55:02 Joselin Mason [facility] CBC WITH DIFF 2021-05-19 16:31:[address] [facility] y [facility] URINALYSIS 2021-05-19 16:31:[address] [facility] y [facility] NOTICE OF PRIVACY 2021-05-19 15:50:33 Doctor Unassigned, No Univ [facility] PRACTICES Name Medical Branch CONSENT/REFUSAL FOR 2021-05-19 15:40:35 [facility] Name Medical Branch TREATMENT TROPONIN I 2020-10-01 17:06:00 Samson García [facility] XR CHEST 1 VW 2020-10-01 15:32:00 Samson García [facility] LIPASE 2020-10-01 15:19:00 García, [facility] MAGNESIUM 2020-10-01 15:19:00 Singer [facility] TROPONIN I 2020-10-01 15:19:00 Singer [facility] COMP. METABOLIC PANEL 2020-10-01 15:19:00 Samson García [facility] ([id number]) [facility] CBC WITH DIFF 2020-10-01 15:19:00 Singer [facility] N-TERMINAL PRO-BNP 2020-10-01 15:19:00 Samson García [facility] Encounters Start End Encounter Admission Attending Care Care Encounter Source Date/Time Date/Time Type Type Clinicians Facility Department ID 2021-08-26 Emergency [facility] [id number] Univers 10:35:[address] [facility] 2021-08-24 Emergency [facility] [id number] Univers 09:33:31 ity [facility] 2021-05-31 2021-05-31 Laboratory Lab, Adc Fam Pob I [facility] 1.2. [id number] Univers 09:24:58 09:44:58 Only Radha, [facility] [id number] ity of [place] 4.2.7.2.686 Willi as Professio [id number] [address] 2021-05-31 2021-05-31 Outpatient R [facility] [id number] Univers 09:20:00 09:20:[address] [facility] 2021-05-31 2021-05-31 Letter Doctor JOSE [id number] Univers 00:00:00 00:00:00 (Out) Unassigned, KANDICE [id number] ity of [place] [facility] 4.2.7.2.686 Willi as [id number] [address] 2021-05-31 2021-05-31 Telephone Song, [facility] [id number] Univers 00:00:00 [facility]:00:[facility] [id number] it y of [place] 4.2.7.2.686 Willi as Professio [id number] Ms dical [facility] [address] [place] [address] 2021-05-19 2021-05-19 [facility] [id number] 10:52:00 14:30:00 Joselin Pierre [id number] [place] 4.2.7.2.686 [place] [id number] [facility] 2021-05-19 2021-05-19 [facility] [id number] [facility] 10:52:00 14:30:00 Joselin Pierre [id number] ity of [place] 4.2.7.2.686 [facility] [id number] [address] 2020-10-10 2020-10-10 Outpatient R RADIOLOGY [facility] [id number] Univers 00:00:00 [facility]:00[facility] 2020-10-01 2020-10-01 Emergency [facility] [id number] 09:08:00 12:24:00 Samson Pierre [id number] [place] 4.2.7.2.686 [place] [id number] [facility] 2020-10-01 2020-10-01 Emergency [facility] [id number] [facility] 09:08:00 12:24:00 Samson Pierre [id number] i ty of [place] 4.2.7.2.686 [facility] [id number] [address] Results Test Description Test Time Test Results Result Source Comments Comments CT ABDOMEN 2021-04-[address] evidence for Uni versity of PELVIS W 5 acute abnormality [facility] CONTRAST 18:20:36 within the abdomen and Br anch pelvis isvisualized. Specifically, no evidence for acute inflammatory process orappendicitis is present.2. Hepatic steatosis is present. A 10 mm nodular focus of enhancement inthe right lobe of the liver may result from a flash filling hemangioma orfocal nodular hyperplasia. Nonemergent contrast enhanced MRI could beobtained for more definitive characterization as clinically indicated.3. A fibroid uterus is present. RL: [id number] ORDERING PHYSICIAN: JOSELIN MASON ABDOMEN AND PELVIS CT WITH INTRAVENOUS CONTRAST. DATE: ?05/19/2021 CLINICAL INDICATIONS: ?Abdominal pain. TECHNIQUE: ?Axial computed tomographic images of the abdomen and pelviswere performed after administration of 100 cc of Isovue-[address] scan was performed according to ALARA (As Low as Reasonably Achievable). COMPARISON: ?None. Abdomen findings: The lung bases are clear. The cardiac apex isunremarkable. Diffuse hepatic steatosis is present. A 10 mm nodular focus of enhancementis identified within the right lobe of the liver on image 39 series 2 whichmay result from focal nodular hyperplasia or a flash filling hemangioma.The spleen, pancreas, gallbladder, adrenal glands and kidneys have anunremarkable contrast enhanced appearance. The stomach, small bowel and colon demonstrate no evidence for obstructionor inflammation. A normal appendix is present the right lower quadrant. No adenopathy or free fluid are identified in the abdomen. No acute osseousabnormality is visualized. Pelvis findings: The small bowel and colon are normal caliber. The urinarybladder demonstrates no abnormality. A fibroid uterus is present. Noadenopathy or free fluid are identified in the pelvis. No acute osseousabnormality is demonstrated. [facility], Radiant Results Inft User - 05/19/2021 1:21 PM CDT ORDERING PHYSICIAN: JOSELIN MASONABDOMEN AND PELVIS CT WITH INTRAVENOUS CONTRAST.DATE: 05/19/2021LINICAL INDICATIONS: Abdominal pain.TECHNIQUE: Axial computed tomographic images of the abdomen and pelviswere performed after administration of 100 cc of Isovue-[address] scan was performed according to ALARA (As Low as Reasonably Achievable).COMPARISON : None.Abdomen findings: The lung bases are clear. The cardiac apex isunremarkable.Diffuse hepatic steatosis is present. A 10 mm nodular focus of enhancementis identified within the right lobe of the liver on image 39 series 2 whichmay result from focal nodular hyperplasia or a flash filling hemangioma.The spleen, pancreas, gallbladder, adrenal glands and kidneys have anunremarkable contrast enhanced appearance.The stomach, small bowel and colon demonstrate no evidence for obstructionor inflammation. A normal appendix is present the right lower quadrant.No adenopathy or free fluid are identified in the abdomen. No acute osseousabnormality is visualized.Pelvis findings: The small bowel and colon are normal caliber. The urinarybladder demonstrates no abnormality. A fibroid uterus is present. Noadenopathy or free fluid are identified in the pelvis. No acute osseousabnormality is demonstrated.IMPRESSIO N1. No CT evidence for acute abnormality within the abdomen and pelvis isvisualized. Specifically, no evidence for acute inflammatory process orappendicitis is present.2. Hepatic steatosis is present. A 10 mm nodular focus of enhancement inthe right lobe of the liver may result from a flash filling hemangioma orfocal nodular hyperplasia. Nonemergent contrast enhanced MRI could beobtained for more definitive characterization as clinically indicated.3. A fibroid uterus is present.RL: 2831 ONIN I 2021-05-19 18:08:38 Test Item Value Reference Range Interpretation Comme nts TROPONIN I (test code = 0.002 ng/mL See_Comment [Au tomated message] The 3692700797) system which [employer] nerated this result tra nsmitted reference range : <=0.034. The reference r pramod was not used to int erpret this result as normal/abnormal . BON (test code = BON) Reference (Normal) Range (defined by the 99th percentile reference limit): <= 0.034 ng/mL Note: Cardiac troponin begins to rise 3-4 hours after the onset of ischemia. Repeat in 4-6 hours if the sample was drawn within 3-4 hours of the onset of the symptom and found normal. Diagnosis of myocardial injury is made with acute changes in cTn concentrations with at least one serial sample above the 99th percentile upper reference limit (URL), taken together with the patient's clinical presentation. Biotin has been reported to cause a negative bias, interpret results relative to patient's use of biotin. Lab Interpretation Normal (test code = 83274-5) [facility]. METABOLIC PANEL ([id number])2021-05-19 17:56:56 Test Item Value Reference Range Interpretation Comments NA (test code = 138 mmol/L 135-145 2329207570) K (test code = 3.8 mmol/L 3.5-5.0 3208341067) CL (test code = 105 mmol/L 98-108 8509116026) CO2 TOTAL (test code = 26 mmol/L 23-31 1315653155) AGAP (test code = 2-16 5762587235) BUN (test code = 17 mg/dL 7-23 1048603289) GLUCOSE (test code = 118 mg/dL 70-110 H 4740175781) CREATININE (test code = 0.49 mg/dL 0.50-1.04 L 6670961373) TOTAL BILI (test code = 0.7 mg/dL 0.1-1.7 0645746911) CALCIUM (test code = 9.6 mg/dL 8.6-10.6 4011298130) T PROTEIN (test code = 7.5 g/dL 6.3-8.2 1193961884) ALBUMIN (test code = 4.0 g/dL 3.5-5.0 3412580984) ALK PHOS (test code = 98 U/L 34-122 6516500540) ALTv (test code = 21 U/L 5-35 1742-6) AST(SGOT) (test code = 25 U/L 13-40 5035821152) eGFR (test code = mL/min/1.73m2 5710128955) BON (test code = BON) Association of Glomerular Filtration Rate (GFR) and Staging of Kidney Disease* + --+ --+ ------+| GFR (mL/min/1.73 m2) ?| With Kidney Damage ?| ?Without Kidney Damage+ --------+ --------+ +| ?>90 ?| ?Stage one ?| ? Normal ?+ ---+ ---+ -------+| ?60-89 ?| ?Stage two ?| ? Decreased GFR ? + --+ --+ ------+| ?30-59 ?| ?Stage three ?| ? Stage three ? + --+ --+ ------+| ?15-29 ?| ?Stage four ? | ? Stage four ?+ ---+ ---+ -------+| ?<15 (or dialysis) ? ?| ?Stage five ? | ? Stage five ?+ ---+ ---+ -------+ *Each stage assumes the associated GFR level has been in effect for at least three months. ?Stages 1 to 5, with or without kidney disease, indicate chronic kidney disease. Notes: Determination of stages one and two (with eGFR >59mL/min/1.73 m2) requires estimation of kidney damage for at least three months as defined by structural or functional abnormalities of the kidney, manifested by either:Pathological abnormalities or Markers of kidney damage (including abnormalities in the composition of the blood or urine or abnormalities in imaging tests). Lab Interpretation Abnormal (test code = 54153-8) [facility] 17:56[facility]35 Test Item Value Reference Range Interpretation Comments LIPASE (test code = 3278600855) 91 U/L 0-220 Lab Interpretation (test code = Normal 68387-1) [facility] 17:48:44 Test Item Value Reference Range Interpretation Comments APPEARANCE (test code = Hazy Clear A 2096474690) COLOR (test code = Yellow Yellow 1986049399) PH (test code = 4.8-8.0 9716684801) SP GRAVITY (test code = 1.003-1.030 3230181819) GLU U QUAL (test code = Normal Normal 5773537824) BLOOD (test code = Negative Negative 3659946506) KETONES (test code = Negative Negative 8030068097) PROTEIN (test code = Negative Negative 2887-8) UROBILIN (test code = 4.0 mg/dL Normal A 3487919279) BILIRUBIN (test code = 2 mg/dL Negative A 4335682277) NITRITE (test code = Negative Negative 6941027999) LEUK CHRISTIANE (test code = Negative Negative 1212317585) RBC/HPF (test code = See_Comment [Autom ated message] 4345018926) The system [employer] generated this result transmit dominik reference range : 0 - 3 HPF. The refe rence range was not u sed to interpret th is result as normal/abnormal . WBC/HPF (test code = <1 See_Comment [Autom ated message] 9666702881) The system [employer] generated this result transmit dominik reference range : 0 - 5 HPF. The refe rence range was not u sed to interpret th is result as normal/abnormal . BACTERIA (test code = Negative Negative 0896894468) MUCOUS (test code = Slight Negative LPF A 7646168583) SQ EPITH (test code = HPF 2333514404) Ictotest (test code = Positive 4383832157) Lab Interpretation (test Abnormal code = 12205-5) [facility] RI[facility] 4+ VW [id number] 17:30:55 1. No acute cardiopulmonary disease. 2. No displaced right rib fractures. RL: 518 AFC: [id number] End ofreport ORDERING PHYSICIAN: JOSELIN MASON CLINICAL HISTORY: r/o rib fracture, R lower anterior rib, felt pop TECHNIQUE: Frontal view of the chest and 4 views of the right ribs TECHNICAL QUALITY: Good COMPARISON: None FINDINGS: The lungs are clear. There is no pneumothorax. There is nopleural effusion. The cardiac silhouette is normal insize. The aorta is mildly tortuous. There are no displaced rib fractures. [facility], Radiant Results InftUser - 05/19/2021 12:31 PM CDT ORDERING P HYSICIAN: JOSELIN MASONCLINICAL HISTORY: r/o rib fracture, R lower anterior rib, felt pop TECHNIQUE: Frontal view of the chest and 4 views of the right ribs TECHNICAL QUALITY: GoodCOMPARISON: NoneFINDINGS: The lungs are clear. There is no pneumothorax. There is nopleural effusion.The cardiac silhouette is normal in size. The aorta is mildly tortuous.There are no displaced rib fractures.IMPRESSION1. No acute cardiopulmonary disease.2. No displaced right rib fractures.RL: 518AFC: [id number] 2021-05-19 16:39:11 Test Item Value Reference Range Interpretation Comments WBC (test code = See_Comment [Automated 2042-2) message] The sy stem which generated this result transmitted reference range : 4.30 - 11.10 10*3/?L. The reference range was not used to interpret this result as normal/abnormal . RBC (test code = See_Comment [Automated 854-8) message] The sy stem which generated this result transmitted reference range : 3.93 - 5.25 10*6/?L. The reference range was not used to interpret this result as normal/abnormal . HGB (test code = 13.9 g/dL 11.6-15.0 718-7) HCT (test code = 42.9 % 35.7-45.2 4544-3) MCV (test code = 83.5 fL 80.6-95.5 787-2) MCH (test code = 27.0 pg 25.9-32.8 785-6) MCHC (test code = 32.4 g/dL 31.6-35.1 786-4) RDW-SD (test code = 39.7 fL 39.0-49.9 25438-9) RDW-CV (test code = 13.0 % 12.0-15.5 788-0) PLT (test code = See_Comment [Automated 777-3) message] The sy stem which generated this result transmitted reference range : 166 - 358 10*3/ ?L. The reference r pramod was not used to interpret this result as normal/abnormal . MPV (test code = 9.0 fL 9.5-12.9 L 17549-0) NRBC/100 WBC (test See_Comment [Automat ed code = 5351005172) message] The system which generated this result transmitted reference range : 0.0 - 10.0 /100 WBCs. The refer ence range was not u sed to interpret th is result as normal/abnormal . NRBC x10^3 (test code <0.01 See_Comment [Auto mated = 4581380130) message] The s ystem which generated this result transmitted reference range : 10*3/?L. The reference range was not used to interpret this result as normal/abnormal . GRAN MAT (NEUT) % 62.1 % (test code = 770-8) IMM GRAN % (test code 0.30 % = 7775855790) LYMPH % (test code = 25.0 % 736-9) MONO % (test code = 9.1 % 5905-5) EOS % (test code = 2.8 % 713-8) BASO % (test code = 0.7 % 706-2) GRAN MAT x10^3(ANC) 3.76 10*3/uL 1.88-7.09 (test code = 9518997644) IMM GRAN x10^3 (test <0.03 0.00-0.06 code = 6002197543) LYMPH x10^3 (test code 1.51 10*3/uL 1.32-3.29 = 731-0) MONO x10^3 (test code 0.55 10*3/uL 0.33-0.92 = 742-7) EOS x10^3 (test code = 0.17 10*3/uL 0.03-0.39 711-2) BASO x10^3 (test code 0.04 10*3/uL 0.01-0.07 = 704-7) Lab Interpretation Abnormal (test code = 57198-8) [id number]:50[facility]00 Test Item Value Reference Range Interpretation Comments TROPONIN I (test <0.012 See_Comment [Automated code = 6837368219) message] The system which generated this result transmitted reference range : <=0.034 ng/mL. The reference range was not used to interpr et this result as normal/abnormal . BON (test code = Equal or Less than BON) 0.034 ng/ml---Normal ?Note: Cardiac troponin begins to rise 3-4 hours after the onset of ischemia. Repeat in 4-6 hours if the sample was drawn within 3-4 hours of the onset of the symptom and found normal. Between 0.035 and 0.120 ng/mL--- Borderline. Questionable myocardial injury or necrosis ? ?Note: Serial measurement may be necessary to confirm or exclude the diagnosis of myocardial injury or necrosis; Clinical correlation (symptoms, EKGs, imaging studies, and others) required; Repeat in 4-6 hours if clinically indicated. ? Equal or Higher than 0.121 ng/mL---Abnormal. Myocardial Injury or Necrosis Likely ? Biotin has been reported to cause a negative bias, interpret results relative to patient's use of biotin. ? Lab Interpretation Normal (test code = 50419-9) [facility] [id number] 16:10:49Impression: Clear lungs. Elevated right hemidiaphragm.Exam: XR CHEST 1 10/01/2020 9:10 AM ClinicalHistory: Chest pain Comparison: None Technique: frontal view of the chest Findings: The right hemidiaphragm is elevated.The lungs are clear. ?No pleural effusion. ?No pneumothorax. The cardiomediastinal silhouette is shifted to the left due to rotationwhich limits evaluation of the size. No acute osseous abnormality. Degenerative changes of spines are noted. [facility], Radiant Results Inft User - 10/01/2020 10:11 AM CSTExam: XR CHEST 1 10/01/2020 9:10 AMClinical History: Chest pain Comparison: NoneTechnique: frontal view of the chestFindings: The right hemidiaphragm is elevated.The lungs are clear. No pleural effusion. No pneumothorax. The cardiomediastinal silhouette is shifted to the left due to rotationwhich limits evaluation of the size.No acute osseous abnormality. Degenerative changes of spines are noted. IMPRESSIONImpression: Clear lungs. Elevated right hemidiaphragm.[facility] TROPONIN [id number] 15:50:00 Test Item Value Reference Range Interpretation Comments TROPONIN I (test <0.012 See_Comment [Automated code = 3784936670) message] The system which generated this result transmitted reference range : <=0.034 ng/mL. The reference range was not used to interpr et this result as normal/abnormal . BON (test code = Equal or Less than BON) 0.034 ng/ml---Normal ?Note: Cardiac troponin begins to rise 3-4 hours after the onset of ischemia. Repeat in 4-6 hours if the sample was drawn within 3-4 hours of the onset of the symptom and found normal. Between 0.035 and 0.120 ng/mL--- Borderline. Questionable myocardial injury or necrosis ? ?Note: Serial measurement may be necessary to confirm or exclude the diagnosis of myocardial injury or necrosis; Clinical correlation (symptoms, EKGs, imaging studies, and others) required; Repeat in 4-6 hours if clinically indicated. ? Equal or Higher than 0.121 ng/mL---Abnormal. Myocardial Injury or Necrosis Likely ? Biotin has been reported to cause a negative bias, interpret results relative to patient's use of biotin. ? Lab Interpretation Normal (test code = 79922-4) [facility]MIN[facility] STU-[id number] 15:48:00 Test Item Value Reference Range Interpretation Comments NT-proBNP (test code 73 pg/mL See_Comment [Autom ated = 3464474431) message] The system which generated this result transmitted reference range : <=125. The reference range was not used to interpret this result as normal/abnormal . BON (test code = BON) Biotin has been reported to cause a negative bias, interpret results relative to patient's use of biotin. Lab Interpretation Normal (test code = 65473-5) [facility] RockCOMP. METABOLIC PANEL (10479)2020-10-01 15:39:00 Test Item Value Reference Range Interpretation Comments NA (test code = 141 mmol/L 135-145 6554362970) K (test code = 3.5 mmol/L 3.5-5 7091990689) CL (test code = 106 mmol/L 98-108 7614099110) CO2 TOTAL (test code = 26 mmol/L 23-31 2134284242) AGAP (test code = 2-16 6682131844) BUN (test code = 21 mg/dL 7-23 5002604522) GLUCOSE (test code = 154 mg/dL 70-110 H 4510798094) CREATININE (test code = 0.64 mg/dL 0.5-1.04 4285969676) TOTAL BILI (test code = 0.7 mg/dL 0.1-1.8 0663234261) CALCIUM (test code = 9.6 mg/dL 8.6-10.6 5977119325) T PROTEIN (test code = 7.8 g/dL 6.3-8.2 8644595320) ALBUMIN (test code = 4.2 g/dL 3.5-5 4964408179) ALK PHOS (test code = 77 U/L 34-122 7638087632) ALTv (test code = 22 U/L 35 1742-6) AST(SGOT) (test code = 19 U/L 13-40 0647399476) eGFR Calculation mL/min/1.73m2 (Non-) (test code = 9241883477) eGFR Calculation mL/min/1.73m2 () (test code = 8108834237) BON (test code = BON) Association of Glomerular Filtration Rate (GFR) and Staging of Kidney Disease* + --+ --+ ------+| GFR (mL/min/1.73 m2) ?| With Kidney Damage ?| ?Without Kidney Damage+ --------+ --------+ +| ?>90 ?| ?Stage one ?| ? Normal ?+ ---+ ---+ -------+| ?60-89 ?| ?Stage two ?| ? Decreased GFR ? + --+ --+ ------+| ?30-59 ?| ?Stage three ?| ? Stage three ? + --+ --+ ------+| ?15-29 ?| ?Stage four ? | ? Stage four ?+ ---+ ---+ -------+| ?<15 (or dialysis) ? ?| ?Stage five ? | ? Stage five ?+ ---+ ---+ -------+ *Each stage assumes the associated GFR level has been in effect for at least three months. ?Stages 1 to 5, with or without kidney disease, indicate chronic kidney disease. Notes: Determination of stages one and two (with eGFR >59mL/min/1.73 m2) requires estimation of kidney damage for at least three months as defined by structural or functional abnormalities of the kidney, manifested by either:Pathological abnormalities or Markers of kidney damage (including abnormalities in the composition of the blood or urine or abnormalities in imaging tests). Lab Interpretation Abnormal (test code = 61122-2) [facility]2020-12-07 15:39:00 Test Item Value Reference Range Interpretation Comments MAGNESIUM (test code = 9178416593) 2.0 mg/dL 1.7-2.4 Lab Interpretation (test code = Normal 77447-9) [facility]2020-12-07 15:38:00 Test Item Value Reference Range Interpretation Comments LIPASE (test code = 3312785709) 70 U/L 0-220 Lab Interpretation (test code = Normal 07258-3) [facility] WITH [id number] 15:26:00 Test Item Value Reference Range Interpretation Comments WBC (test code = See_Comment [Automated 6690-2) message] The sy stem which generated this result transmitted reference range : 4.30 - 11.10 10*3/?L. The reference range was not used to interpret this result as normal/abnormal . RBC (test code = See_Comment H [Automated 789-8) message] The sy stem which generated this result transmitted reference range : 3.93 - 5.25 10*6/?L. The reference range was not used to interpret this result as normal/abnormal . HGB (test code = 14.6 g/dL 11.6-15 718-7) HCT (test code = 44.7 % 35.7-45.2 4544-3) MCV (test code = 83.7 fL 80.6-95.5 787-2) MCH (test code = 27.3 pg 25.9-32.8 785-6) MCHC (test code = 32.7 g/dL 31.6-35.1 786-4) RDW-SD (test code = 38.5 fL 39-49.9 L 32941-1) RDW-CV (test code = 12.7 % 12-15.5 788-0) PLT (test code = See_Comment [Automated 777-3) message] The sy stem which generated this result transmitted reference range : 166 - 358 10*3/ ?L. The reference r pramod was not used to interpret this result as normal/abnormal . MPV (test code = 8.9 fL 9.5-12.9 L 48282-8) NRBC/100 WBC (test See_Comment [Automat ed code = 7013788256) message] The system which generated this result transmitted reference range : 0.0 - 10.0 /100 WBCs. The refer ence range was not u sed to interpret th is result as normal/abnormal . NRBC x10^3 (test code <0.01 See_Comment [Auto mated = 0460792557) message] The s ystem which generated this result transmitted reference range : 10*3/?L. The reference range was not used to interpret this result as normal/abnormal . GRAN MAT (NEUT) % 71.7 % (test code = 770-8) IMM GRAN % (test code 1.20 % = 0429211786) LYMPH % (test code = 20.7 % 736-9) MONO % (test code = 5.5 % 5905-5) EOS % (test code = 0.3 % 713-8) BASO % (test code = 0.6 % 706-2) GRAN MAT x10^3(ANC) 6.22 10*3/uL 1.88-7.09 (test code = 9688773229) IMM GRAN x10^3 (test 0.10 10*3/uL 0-0.06 H code = 9143836957) LYMPH x10^3 (test code 1.80 10*3/uL 1.32-3.29 = 731-0) MONO x10^3 (test code 0.48 10*3/uL 0.33-0.92 = 742-7) EOS x10^3 (test code = 0.03 10*3/uL 0.03-0.39 711-2) BASO x10^3 (test code 0.05 10*3/uL 0.01-0.07 = 704-7) Lab Interpretation Abnormal (test code = 22104-7) [facility]"
[2023-09-10] MEDS ORDERED: lisinopriL 20 MG TAB ONE (10:54)
--- NOTE | 2023-09-10 11:31 | RAD REPORT ---
EXAM DESCRIPTION: US - UPPER EXTREMITY VENOUS UNILATE - 09/10/2023 11:23 am CLINICAL HISTORY: Bruising COMPARISON: None. TECHNIQUE: Real-time sonographic evaluation of the right upper extremity venous system was performed . FINDINGS: Normal compressibility, flow augmentation, phasic flow and spontaneous flow is identified in the right upper extremity venous system. No intraluminal filling defects seen. IMPRESSION: No venous thrombosis in the right upper extremity.
--- NOTE | 2023-09-10 12:00 | EDPHYS ---
Physician Documentation [facility] Name: Alda Paz Age: 57 yrs Sex: Female : 1965 Arrival Date: 09/10/2023 Time: 10:24 Bed 17 Private MD: ED Physician Jorge Yates HPI: 09/10 10:35 This 57 yrs old Female presents to ER via Ambulatory with complaints of High [facility] Blood Pressure. 10:35 The patient has elevated blood pressure and discovered this at a physician's office, [facility] and sent to the emergency department for evaluation. Onset: The symptoms/episode began/occurred acutely. Modifying factors: The symptoms are aggravated by discontinuation of meds, JUAN DIEGO-inhibitor, ran out 4 days ago, The symptoms are alleviated by prescription meds, JUAN DIEGO-inhibitor. Associated signs and symptoms: The patient has no apparent associated signs or symptoms. Severity of symptoms: At its worst the blood pressure was 202 mm Hg. Patient went to her PCPs office to have bruising in her right upper arm looked at. She admits that she ran out of her lisinopril 4 days ago and has not gotten it refilled yet. She states that her PCP sent her to the ER due to her blood pressure being elevated. Denies chest pain, shortness of breath, headache, dizziness, or any other symptoms at this time. She denies any injury to her right upper arm, but states that when lifting something a week ago she did feel a " pop".. Historical: - Allergies: 10:35 Aspirin; ll1 - Home Meds: 10:35 lisinopril 10 mg Oral tab 1 tab once daily [Active]; eh3 - PMHx: 10:35 Hypertension; ll1 - PSHx: 10:35 R shoulder SX; ll1 - Immunization history:: Adult Immunizations up to date. - Social history:: Smoking status: Patient denies any tobacco usage or history of. ROS: 10:35 Constitutional: Negative for fever, chills, and weight loss, Eyes: Negative for injury, jh7 pain, redness, and discharge, Neck: Negative for injury, pain, and swelling, Cardiovascular: Negative for chest pain, palpitations, and edema, Respiratory: Negative for shortness of breath, cough, wheezing, and pleuritic chest pain, Abdomen/GI: Negative for abdominal pain, nausea, vomiting, diarrhea, and constipation, Back: Negative for injury and pain, Skin: Negative for injury, rash, and discoloration, Neuro: Negative for headache, weakness, numbness, tingling, and seizure, 10:35 MS/extremity: Positive for ecchymosis, pain, tenderness, of the right upper arm, 10:35 All other systems are negative, Exam: 10:35 Constitutional: This is a well developed, well nourished patient who is awake, alert, jh7 and in no acute distress. Head/Face: Normocephalic, atraumatic. Neck: Trachea midline, no thyromegaly or masses palpated, and no cervical lymphadenopathy. Supple, full range of motion without nuchal rigidity, or vertebral point tenderness. No Meningismus. Cardiovascular: Regular rate and rhythm with a normal S1 and S2. No gallops, murmurs, or rubs. Normal PMI, no JVD. No pulse deficits. Respiratory: Lungs have equal breath sounds bilaterally, clear to auscultation and percussion. No rales, rhonchi or wheezes noted. No increased work of breathing, no retractions or nasal flaring. Abdomen/GI: Soft, non-tender, with normal bowel sounds. No distension or tympany. No guarding or rebound. No evidence of tenderness throughout. Skin: Warm, dry with normal turgor. Normal color with no rashes, no lesions, and no evidence of cellulitis. MS/ Extremity: Pulses equal, no cyanosis. Neurovascular intact. Full, normal range of motion. Neuro: Awake and alert, GCS 15, oriented to person, place, time, and situation. Motor strength 5/5 in all extremities. Sensory grossly intact. Normal gait. 10:35 Musculoskeletal/extremity: Extremities: noted in the right upper arm: ecchymosis, ROM: full active range of motion, Circulation is intact in all extremities. Sensation intact. Vital Signs: 10:35 Pulse 76; Resp 17; Temp 97.9; Pulse Ox 99% ; ll1 10:35 BP 209 / 102; Pulse 68; Resp 18; Pulse Ox 100% on R/A; eh3 11:20 BP 201 / 93; Pulse 60; Resp 18; Pulse Ox 100% on R/A; eh3 11:40 BP 186 / 83; Pulse 63; Resp 16; Pulse Ox 100% on R/A; eh3 12:00 BP 175 / 89; Pulse 66; eh3 12:19 BP 175 / 89; Pulse 66; eh3 MDM: 10:29 Patient medically screened. [facility] 11:45 Differential diagnosis: hypertensive crisis, Malignant HTN. Data interpreted: Pulse 7 oximetry: is 99 %. Interpretation: normal. Data reviewed: vital signs, nurses notes, radiologic studies, ultrasound. I considered the following discharge prescriptions or medication management in the emergency department Medications were administered in the Emergency Department. See MAR. Care significantly affected by the following chronic conditions: Hypertension. Counseling: I had a detailed discussion with the patient and/or guardian regarding the historical points, exam findings, and any diagnostic results supporting the discharge/admit diagnosis, to return to the emergency department if symptoms worsen or persist or if there are any questions or concerns that arise at home. Response to treatment: the patient's symptoms have mildly improved after treatment. ED course: Follow-up BP 175/70. Advised the patient to take lisinopril as instructed and to follow-up with her PCP.. 09/10 10:43 Order name: UPPER EXTREMITY VENOUS UNILATE; Complete Time: 11:37 EDMS 09/10 11:37 Order name: Recheck B/P; Complete Time: 11:54 jh Administered Medications: 11:20 Drug: Lisinopril PO 20 mg PO once Route: PO; eh3 12:19 Follow up: BP 175 / 89; Pulse 66 bpm; Response: No adverse reaction; Blood pressure is eh3 lowered Disposition: 14:09 Co-signature as Attending Physician, Jorge Yates MD I reviewed the patient's care rt provided by the Advanced Practice Provider and agree with the diagnosis and treatment plan. Disposition Summary: 09/10/23 12:00 Discharge Ordered Notes: Location: Home [facility] Problem: chronic jh7 Symptoms: have improved jh7 Condition: Stable [facility] Diagnosis - Essential (primary) hypertension jh7 - Contusion of right upper arm 7 Followup: 7 - With: Private Physician - When: 2 - 3 days - Reason: Recheck today's complaints Discharge Instructions: - Discharge Summary Sheet jh7 - Hypertension, Adult jh7 - Managing Your Hypertension [facility] Forms: - Medication Reconciliation Form 7 - Thank You Letter 7 - Antibiotic Education 7 - Prescription Opioid Use 7 - Patient Portal Instructions jh7 - Leadership Thank You Letter [facility] Prescriptions: - Lisinopril 20 mg Oral tablet - take 1 tablet ORAL route once daily; 30 tablet; Refills: 0, Product Selection [facility] Permitted Signatures: Dispatcher [employer] EDBrennan Gonzalez, RN RN ll1 Marimar Xiong RN RN eh3 Catalina Zhao, SCHEDULING SPECIALIST SCHEDULING SPECIALIST [facility] Jorge Yates MD MD rt Corrections: (The following items were deleted from the chart) 10:43 10:37 Extremity Venous [email or web address] ordered. EDMS EDMS
--- NOTE | 2023-09-10 12:00 | ER ---
Nurse's Notes [facility] Name: Alda Paz Age: 57 yrs Sex: Female : 1965 Arrival Date: 09/10/2023 Time: 10:24 Bed 17 Private MD: Diagnosis: Essential (primary) hypertension;Contusion of right upper arm Presentation: 09/10 10:35 Chief complaint: Patient states: Out of BP medicine for 4 days, BP 200's systolic at ll1 clinic just [employer]. Pain and bruising to RUE for 1 week. Coronavirus screen: Client denies travel out of the [place] in the last 14 days. At this time, the client does not indicate any symptoms associated with coronavirus-19. Ebola Screen: Patient denies travel to an Ebola-affected area in the 21 days before illness onset. Initial Sepsis Screen: Does the patient meet any 2 criteria? No. Patient's initial sepsis screen is negative. Does the patient have a suspected source of infection? No. Patient's initial sepsis screen is negative. Risk Assessment: Do you want to hurt yourself or someone else? Patient reports no desire to harm self or others. Onset of symptoms was September 10, 2023. 10:35 Method Of Arrival: Ambulatory ll1 10:35 Acuity: KATIE 2 ll1 Historical: - Allergies: 10:35 Aspirin; ll1 - Home Meds: 10:35 lisinopril 10 mg Oral tab 1 tab once daily [Active]; eh3 - PMHx: 10:35 Hypertension; ll1 - PSHx: 10:35 R shoulder SX; ll1 - Immunization history:: Adult Immunizations up to date. - Social history:: Smoking status: Patient denies any tobacco usage or history of. Screenin:35 [facility] ED Fall Risk Assessment (Adult) Score/Fall Risk Level 0 - 2 = Low Risk. Abuse eh3 screen: Denies threats or abuse. Denies injuries from another. Nutritional screening: No deficits noted. Tuberculosis screening: No symptoms or risk factors identified. Assessment: 10:35 General: Appears in no apparent distress. uncomfortable, Behavior is calm, cooperative, eh3 appropriate for age. Pain: Denies pain. Neuro: Level of Consciousness is awake, alert, obeys commands, Oriented to person, place, time, situation. Cardiovascular: Capillary refill < 3 seconds Patient's skin is warm and dry. Respiratory: Airway is patent Respiratory effort is even, unlabored, Respiratory pattern is regular, symmetrical. GI: Abdomen is round non-distended. Derm: Skin is pink, warm \T\ dry. Bruising that is dark purple, on right bicep. Musculoskeletal: Circulation, motion, and sensation intact. Range of motion: intact in all extremities. 11:30 Reassessment: Patient appears in no apparent distress at this time. Patient and/or eh3 family updated on plan of care and expected duration. Pain level reassessed. Patient is alert, oriented x 3, equal unlabored respirations, skin warm/dry/pink. 11:32 Reassessment: Pt c/o left lateral breast pain, states it is sharp/shooting intermittent eh3 pain for the last month. Last mammogram was approximately 3 years ago. Vital Signs: 10:35 Pulse 76; Resp 17; Temp 97.9; Pulse Ox 99% ; ll1 10:35 BP 209 / 102; Pulse 68; Resp 18; Pulse Ox 100% on R/A; eh3 11:20 BP 201 / 93; Pulse 60; Resp 18; Pulse Ox 100% on R/A; eh3 11:40 BP 186 / 83; Pulse 63; Resp 16; Pulse Ox 100% on R/A; eh3 12:00 BP 175 / 89; Pulse 66; eh3 12:19 BP 175 / 89; Pulse 66; eh3 ED Course: 10:27 Patient arrived in ED. mg5 10:29 Catalina [facility] FNP [facility] jh7 10:29 Jorge Yates MD is Attending Physician. jh7 10:35 Arm band placed on Patient placed in an exam room, on a stretcher. ll1 10:35 Patient has correct armband on for positive identification. Bed in low position. Call eh3 light in reach. Side rails up X2. Provided Education on: use of liu. Client placed on continuous cardiac and pulse oximetry monitoring. NIBP monitoring applied. 10:37 Triage completed. ll1 10:38 Clark Zabala, CECELIA is Primary Nurse. rs5 11:24 UPPER EXTREMITY VENOUS UNILATE In Process Unspecified. EDMS 12:35 No provider procedures requiring assistance completed. Patient did not have IV access eh3 during this emergency room visit. Administered Medications: 11:20 Drug: Lisinopril PO 20 mg PO once Route: PO; eh3 12:19 Follow up: BP 175 / 89; Pulse 66 bpm; Response: No adverse reaction; Blood pressure is eh3 lowered Medication: 10:35 VIS not applicable for this client. eh3 Outcome: 12:00 Discharge ordered by . thang 12:35 Discharged to home ambulatory, with significant other, 3 12:35 Condition: stable 12:35 Discharge instructions given to patient, Instructed on discharge instructions, follow up and referral plans. medication usage, Demonstrated understanding of instructions, follow-up care, medications, Prescriptions given X 1, 12:36 Patient left the ED. 3 Signatures: Dispatcher [employer] EDMS Brennan Elena RN RN 1 Marimar Xiong RN RN 3 Catalina Zhao, ELECTRICAL SIGN WIRER ELECTRICAL SIGN WIRER 7 Clark Zabala RN RN rs5 Genie Villagomez 5 Corrections: (The following items were deleted from the chart) 12:32 11:29 BP 201 / 93; eh3 eh3 12:32 11:47 BP 186 / 83; eh3 eh3
[2023-09-10 13:01] VITALS: TEMP 97.9
[2023-09-10 13:02] VITALS: O2SAT 100
[2023-09-10 13:04] VITALS: BP 175/89
== END 2023-09-10 12:36 | disposition home or self-care (01) ==
LOC: ER 10:24
DX: I10 Essential (primary) hypertension (principal); S40.021A Contusion of right upper arm, initial encounter; Z88.6 Allergy status to analgesic agent
CPT/HCPCS: 93971; 99284

== ENCOUNTER → 2024-01-03 | Emergency (ER) | payer OTHER ==
[~2024-01-03] MED LIST: DIPHENHYDRAMINE 50 MG/ML VIAL ONE; FAMOTIDINE 20 MG/2 ML VIAL IV ONE; LORazepam 2 MG/ML VIAL ONE; METHYLPREDNISOLONE 125 MG INJ ONE
--- OUTSIDE RECORDS SUMMARY | 2024-01-03 04:04 | XMS REPORT | Continuity of Care Document ---
Author Name Unknown Address [address] [facility]. [address] [place] [address] [facility] Address [address] [facility] [address] [place] [address] Care Team Providers Care Correspondence Renew Clerk Name Role Phone Lab, Adc Fam Pob I Attending Clinician Unavailab Lois Coleman Attending Clinician [phone] Doctor Unassigned, Rulo Attending Clinician U Nini Reeves MD Attending Clinician [phone] Joselin Serna Attending Clinician RADIOLOGY Attending Clinician Unavailable Samson García DO Attending Clinician Payers Payer Name Policy Type Policy Number Effective Date Expirati on Date Source [facility] CLAIMS [id number] 2019 00:00:00 Problems Condition Name Condition Details Condition Category Status Onset Date Resolution Date Last Treatment Date Treating Clinician Comments Source No known active problems No known active problems Disease [facility] Allergies, Adverse Reactions, Alerts Allergy Name Allergy Type Status Severity Reaction(s) Onset Date Inactive Date Treating Clinician Comments Source ASPIRIN DRUG INGREDI Active Hives 05-10 00:00: 00 [facility] Aspirin Propensi ty to adverse reaction s Active Hives 05-10 00:00: 00 Able to take ibuprofen and naproxen without reaction [facility] Social History Social Habit Start Date Stop Date Quantity Comments Source Exposure to SARS-CoV-2 (event) Not sure [facility] Sex Assigned At 1965 00:00:00 1965 00:00:00 [facility] Smoking Status Start Date Stop Date Source Unknown if ever smoked [facility] Medications Ordered Medication Name Filled Medication Name Start Date Stop Date Current Medication? Ordering Clinician Indication Dosage Frequency Signature (SIG) Comments Components Source ondansetron (ZOFRAN (PF)) injection 4 mg 05-19 19:45: 00 05-19 18:39 :00 No 4mg 4 mg, Slow IV Push, ONCE, 1 dose, [place] 05/19/21 at 1445, [facility] morpHINE injection 2 mg 05-19 19:45: 00 05-19 18:39 :00 No 2mg 2 mg, Slow IV Push, ONCE, 1 dose, [place] 05/19/21 at 1445, STAT [facility] iopamidol (ISOVUE 370-500 mL) injection 120 mL 05-19 17:53: 00 05-19 17:50 :00 No [id number] 120mL 120 mL, Intravenou s, ONCE, 1 dose, [place] 05/19/21 at 1315, Routine [facility] HYDROcodone -acetaminop hen (NORCO 5) 5-325 mg tablet 1 tablet 05-19 17:15: 00 05-19 16:30 :00 No 1{tbl} 1 tablet, Oral, ONCE, 1 dose, [place] 05/19/21 at 1215, [facility] traMADoL 50 mg tablet 05-19 00:00: 00 05-25 04:59 :00 No [id number] 50mg Take 1 tablet by mouth every 6 (six) hours as needed for Pain (scale 7-10) for up to 5 days. Indication s: acute pain [facility] naproxen sodium (ANAPROX DS) 550 mg tablet 2019-10 00:00: 00 Yes [id number] 550mg Take 1 tablet by mouth 2 (two) times daily with meals. [facility] methylPREDN ISolone (MEDROL, EBER,) 4 mg tablets 2019-10 00:00: 00 Yes [id number] Take by mouth SEE-INSTRU CTIONS. follow package directions [facility] naproxen sodium (ANAPROX DS) 550 mg tablet 2019-10 00:00: 00 Yes [id number] 550mg Take 1 tablet by mouth 2 (two) times daily with meals. [facility] methylPREDN ISolone (MEDROL, EBER,) 4 mg tablets 2019-10 00:00: 00 Yes [id number] Take by mouth SEE-INSTRU CTIONS. follow package directions [facility] naproxen sodium (ANAPROX DS) 550 mg tablet 2019-10 00:00: 00 Yes [id number] 550mg Take 1 tablet by mouth 2 (two) times daily with meals. [facility] methylPREDN ISolone (MEDROL, EBER,) 4 mg tablets 2019-10 00:00: 00 Yes [id number] Take by mouth SEE-INSTRU CTIONS. follow package directions [facility] naproxen sodium (ANAPROX DS) 550 mg tablet 2019-10 00:00: 00 Yes [id number] 550mg Take 1 tablet by mouth 2 (two) times daily with meals. [facility] methylPREDN ISolone (MEDROL, EBER,) 4 mg tablets 2019-10 00:00: 00 Yes [id number] Take by mouth SEE-INSTRU CTIONS. follow package directions [facility] naproxen sodium (ANAPROX DS) 550 mg tablet 2019-10 00:00: 00 Yes [id number] 550mg Take 1 tablet by mouth 2 (two) times daily with meals. [facility] methylPREDN ISolone (MEDROL, EBER,) 4 mg tablets 2019-10 00:00: 00 Yes [id number] Take by mouth SEE-INSTRU CTIONS. follow package directions [facility] methocarbam oL 500 mg tablet 2019-10 00:00: 00 10-07 05:59 :00 No [id number] 500mg Take 1 tablet by mouth 3 (three) times daily for [address] [facility] ibuprofen 600 mg tablet 01-30 00:00: 00 Yes 600mg Take 1 tablet by mouth every 8 (eight) hours as needed (only use if Tylenol does not help). [facility] ibuprofen 600 mg tablet 01-30 00:00: 00 Yes 600mg Take 1 tablet by mouth every 8 (eight) hours as needed (only use if Tylenol does not help). [facility] ibuprofen 600 mg tablet 01-30 00:00: 00 Yes 600mg Take 1 tablet by mouth every 8 (eight) hours as needed (only use if Tylenol does not help). [facility] ibuprofen 600 mg tablet 01-30 00:00: 00 Yes 600mg Take 1 tablet by mouth every 8 (eight) hours as needed (only use if Tylenol does not help). [facility] ibuprofen 600 mg tablet 01-30 00:00: 00 Yes 600mg Take 1 tablet by mouth every 8 (eight) hours as needed (only use if Tylenol does not help). [facility] Vital Signs Vital Name Observation Time Observation Value Comments S rhiannajennifer Systolic blood pressure 2021-05-19 18:10:00 173 mm[Hg] [facility] Diastolic blood pressure 2021-05-19 18:10:00 92 mm[Hg] [facility] Heart rate 2021-05-19 18:10:00 59 /min [facility] Respiratory rate 2021-05-19 18:10:00 21 /min [facility] Oxygen saturation in Arterial blood by Pulse oximetry 2021-05-19 18:10:00 94 /min [facility] Body temperature 2021-05-19 16:32:34 36.5 Kellie [facility] Body height 2021-05-19 16:01:00 157.5 cm [facility] Body weight 2021-05-19 16:01:00 95.255 kg [facility] BMI 2021-05-19 16:01:00 38.41 kg/m2 [facility] Systolic blood pressure 2021-05-19 18:10:00 173 mm[Hg] [facility] Diastolic blood pressure 2021-05-19 18:10:00 92 mm[Hg] [facility] Heart rate 2021-05-19 18:10:00 59 /min Unive [facility] Respiratory rate 2021-05-19 18:10:00 21 /min [facility] Oxygen saturation in Arterial blood by Pulse oximetry 2021-05-19 18:10:00 94 /min [facility] Body temperature 2021-05-19 16:32:34 36.5 Kellie [facility] Body height 2021-05-19 16:01:00 157.5 cm [facility] Body weight 2021-05-19 16:01:00 95.255 kg [facility] BMI 2021-05-19 16:01:00 38.41 kg/m2 [facility] Systolic blood pressure 2020-10-01 18:00:00 156 mm[Hg] [facility] Diastolic blood pressure 2020-10-01 18:00:00 77 mm[Hg] [facility] Heart rate 2020-10-01 18:00:00 54 /min [facility] Respiratory rate 2020-10-01 18:00:00 11 /min [facility] Oxygen saturation in Arterial blood by Pulse oximetry 2020-10-01 18:00:00 100 /min [facility] Body temperature 2020-10-01 16:42:00 36.72 Kellie [facility] Body weight 2020-10-01 15:11:00 95.255 kg [facility] BMI 2020-10-01 15:11:00 36.05 kg/m2 [facility] Systolic blood pressure 2020-10-01 18:00:00 156 mm[Hg] [facility] Diastolic blood pressure 2020-10-01 18:00:00 77 mm[Hg] [facility] Heart rate 2020-10-01 18:00:00 54 /min [facility] Respiratory rate 2020-10-01 18:00:00 11 /min [facility] Oxygen saturation in Arterial blood by Pulse oximetry 2020-10-01 18:00:00 100 /min [facility] Body temperature 2020-10-01 16:42:00 36.72 Kellie [facility] Body weight 2020-10-01 15:11:00 95.255 kg [facility] BMI 2020-10-01 15:11:00 36.05 kg/m2 [facility] Procedures Procedure Date / Time Performed Performing Clinicia n Source CT ABDOMEN PELVIS W CONTRAST 2021-05-19 18:03:23 Joselin Mason [facility] COMP. METABOLIC PANEL ([id number]) 2021-05-19 17:07:00 Joselin Mason [facility] LIPASE 2021-05-19 17:07:00 [facility] 2021-05-19 17:07:00 [facility] RIBS 4+ VW RIGHT 2021-05-19 16:55:02 Joselin Mason [facility] CBC WITH DIFF 2021-05-19 16:31:00 [facility] URINALYSIS 2021-05-19 16:31:00 Joselin Mason Un [facility] NOTICE OF PRIVACY PRACTICES 2021-05-19 15:50:33 Doctor Unassigned, Rulo [facility] CONSENT/REFUSAL FOR DIAGNOSIS AND TREATMENT 2021-05-19 15:40:35 Doctor Unassigned, Rulo [facility] TROPONIN I 2020-10-01 17:06:00 Samson García [facility] XR CHEST 1 VW 2020-10-01 15:32:00 Samson García [facility] LIPASE 2020-10-01 15:19:00 Samson García [facility] MAGNESIUM 2020-10-01 15:19:00 Samson García [facility] TROPONIN I 2020-10-01 15:19:00 Samson García [facility] COMP. METABOLIC PANEL ([id number]) 2020-10-01 15:19:00 Samson García [facility] CBC WITH DIFF 2020-10-01 15:19:00 Samson García [facility] N-TERMINAL PRO-BNP 2020-10-01 15:19:00 Samson García [facility] Encounters Start Date/Time End Date/Time Encounter Type Admission Type Attending Clinicians Care Facility Care Department Encounter ID Source 2021-08-26 10:35:38 Emergency [facility] [id number] [facility] 2021-08-24 09:33:31 Emergency [facility] [id number] [facility] 2021-05-31 09:24:58 2021-05-31 09:44:58 Laboratory Only Lab, Adc Fam Urielb Lois Pereira [facility] [address] .114 [id number] [id number] [facility] 2021-05-31 09:20:00 2021-05-31 09:20:00 Outpatient R [facility] [id number] [facility] 2021-05-31 00:00:00 2021-05-31 00:00:00 Letter (Out) Doctor Unassigned, Rulo [facility] 1.114 350.1.13.10 4.2.7.2.[id number] [facility] 2021-05-31 00:00:00 2021-05-31 00:00:00 Telephone Nini Mckenzie [facility] [address] . [id number] 4.2.7.2.[id number] [facility] 2021-05-19 10:52:00 2021-05-19 14:30:00 Emergency Joselin Mason [facility] 1.114 [id number] 4.2.7.2.686 [id number] 2021-05-19 10:52:00 2021-05-19 14:30:00 Emergency Joselin Mason [facility] [id number] 4.2.7.2.[id number] [facility] 2020-10-10 00:00:00 2020-10-10 00:00:00 Outpatient R RADIOLOGY [facility] [id number] [facility] 2020-10-01 09:08:00 2020-10-01 12:24:00 Emergency Singer [facility] [id number] 4.2.7.2.686 [id number] 2020-10-01 09:08:00 2020-10-01 12:24:00 Emergency Singer [facility] [id number] 4.2.7.2.[id number] [facility] Results Test Description Test Time Test Comments Results Result Comments Source CT ABDOMEN PELVIS W CONTRAST 2021-04-26 5 18:20:[address] evidence for acute abnormality within [...] the pelvis. No acute osseousabnormality is demonstrated. [facility], Radiant Results Inft User - 05/19/2021 1:21 PM CDT ORDERING PHYSICIAN: JOSELIN MASONABDOMERIN AND PELVIS CT WITH INTRAVENOUS CONTRAST.DATE: 05/19/2021LINICAL [...] indicated.3. A fibroid uterus is present.RL: [id number] [facility]. METABOLIC PANEL ([id number])2021-05-19 17:56:56* Test Item Value Reference Range Interpretation Comme nts NA (test code = 9144402377) 138 mmol/L 135-145 K (test code = 7665436552) 3.8 mmol/L 3.5-5.0 CL (test code = 4197803119) 105 mmol/L 98-108 CO2 TOTAL (test code = 3250754270) 26 mmol/L 23-31 AGAP (test code = 1521155620) 2-16 BUN (test code = 0850234768) 17 mg/dL 7-23 GLUCOSE (test code = 2422896573) 118 mg/dL 70-110 H CREATININE (test code = 1587330771) 0.49 mg/dL 0.50-1.04 L TOTAL BILI (test code = 3095226169) 0.7 mg/dL 0.1-1.1 CALCIUM (test code = 5150673983) 9.6 mg/dL 8.6-10.6 T PROTEIN (test code = 5720334868) 7.5 g/dL 6.3-8.2 ALBUMIN (test code = 9735935084) 4.0 g/dL 3.5-5.0 ALK PHOS (test code = 6343909819) 98 U/L 34-122 ALTv (test code = 1742-6) 21 U/L 5-35 AST(SGOT) (test code = 9965843199) 25 U/L 13-40 eGFR (test code = 4968194981) mL/min/1.73m2 BON (test code = BON) Association of [...] or abnormalities in imaging tests). Lab Interpretation (test code = 91972-9) [facility] 17:56:35* Test Item Value Reference Range Interpretation Comme nts LIPASE (test code = 3903269744) 91 U/L 0-220 Lab Interpretation (test cod e = 44121-0) Normal [facility]21[facility]25 17:48:44* Test Item Value Reference Range Interpretation Comme nts APPEARANCE (test code = 8110455653) Hazy Clear A COLOR (test code = 3852543352) Yellow Yellow PH (test code = 3650791908) 4.8-8.0 SP GRAVITY (test code = 1463846014) 1.003-1.030 GLU U QUAL (test code = 5377678338) Normal Normal BLOOD (test code = 4135009073) Negative Negative KETONES (test code = 7972683890) Negative Negative PROTEIN (test code = 2887-8) Negative Negative UROBILIN (test code = 6519212442) 4.0 mg/dL Normal A BILIRUBIN (test code = 6814714799) 2 mg/dL Negative A NITRITE (test code = 3391116973) Negative Negative LEUK CHRISTIANE (test code = 9611550731) Negative Negative RBC/HPF (test code = 3994256184) See_Comment [Automated [employer] ge] The system which generated this result transmitted reference range: 0 - 3 HPF. The reference range was not used to interpret this result as normal/abnormal. WBC/HPF (test code = 0518938736) <1 See_Comment [[employer] ge] The system which generated this result transmitted reference range: 0 - 5 HPF. The reference range was not used to interpret this result as normal/abnormal. BACTERIA (test code = 3702082553) Negative Negative MUCOUS (test code = 2472610497) Slight Negative LPF A SQ EPITH (test code = 1692468889) HPF Ictotest (test code = 8968947749) Positive Lab Interpretation (test code = 88311-4) [facility] VW [id number] 17:30:551. No acute cardiopulmonary disease. 2. No displaced right rib fractures. RL: 518 AFC: 84441 End ofreport ORDERING PHYSICIAN: JOSELIN MASON CLINICAL HISTORY: r/o rib fracture, R lower anterior rib, felt pop TECHNIQUE: Frontal view of the chest and 4 views of the right ribs TECHNICAL QUALITY: Good COMPARISON: None FINDINGS: The lungs are clear. There is no pneumothorax. There is nopleural effusion. The cardiac silhouette is normal in size. The aorta is mildly tortuous. There are no displaced rib fractures. [facility], Radiant ResultsInft User - 05/19/2021 12:31 PM CDT ORDERING PHYSICIAN: JOSELIN MASONCLINICAL HISTORY: r/o rib fracture, R lower anterior rib, felt popTECHNIQUE: Frontal view of the chest and 4 views of the right ribs TECHNICAL QUALITY: GoodCOMPARISON: NoneFINDINGS: The lungs are clear. There is no pneumothorax. There is nopleural effusion.The cardiac silhouette is normal in size. The aorta is mildly tortuous.There are no displaced rib fractures.I MPRESSION1. No acute cardiopulmonary disease.2. No displaced right rib fractures.RL: 518AFC: 54132Oxx of report [facility] WITH [id number] 16:39:11* Test Item Value Reference Range Interpretation Comme nts WBC (test code = 6690-2) See_Comment [Automated messa ge] The system which generated this result transmitted reference range: 4.30 - 11.10 10*3/?L. The reference range was not used to interpret this result as normal/abnormal. RBC (test code = 789-8) See_Comment [Automated messa ge] The system which generated this result transmitted reference range: 3.93 - 5.25 10*6/?L. The reference range was not used to interpret this result as normal/abnormal. HGB (test code = 718-7) 13.9 g/dL 11.6-15.0 HCT (test code = 4544-3) 42.9 % 35.7-45.2 MCV (test code = 787-2) 83.5 fL 80.6-95.5 MCH (test code = 785-6) 27.0 pg 25.9-32.8 MCHC (test code = 786-4) 32.4 g/dL 31.6-35.1 RDW-SD (test code = 30117-6) 39.7 fL 39.0-49.9 RDW-CV (test code = 788-0) 13.0 % 12.0-15.5 PLT (test code = 777-3) See_Comment [Automated messa ge] The system which generated this result transmitted reference range: 166 - 358 10*3/?L. The reference range was not used to interpret this result as normal/abnormal. MPV (test code = 99798-3) 9.0 fL 9.5-12.9 L NRBC/100 WBC (test code = 5153828846) See_Comment [Automated [employer] ssage] The system which generated this result transmitted reference range: 0.0 - 10.0 /100 WBCs. The reference range was not used to interpret this result as normal/abnormal. NRBC x10^3 (test code = 9020472621) <0.01 See_Comment [Automated messa ge] The system which generated this result transmitted reference range: 10*3/?L. The reference range was not used to interpret this result as normal/abnormal. GRAN MAT (NEUT) % (test code = 770-8) 62.1 % IMM GRAN % (test code = 9716533479) 0.30 % LYMPH % (test code = 736-9) 25.0 % MONO % (test code = 5905-5) 9.1 % EOS % (test code = 713-8) 2.8 % BASO % (test code = 706-2) 0.7 % GRAN MAT x10^3(ANC) (test code = 7225191380) 3.76 10*3/uL 1.88-7.09 IMM GRAN x10^3 (test code = 0350696423) <0.03 0.00-0.06 LYMPH x10^3 (test code = 731-0) 1.51 10*3/uL 1.32-3.29 MONO x10^3 (test code = 742-7) 0.55 10*3/uL 0.33-0.92 EOS x10^3 (test code = 711-2) 0.17 10*3/uL 0.03-0.39 BASO x10^3 (test code = 704-7) 0.04 10*3/uL 0.01-0.07 Lab Interpretation (test code = 04129-5) Abnormal [facility] [id number] 17:50:00* Test Item Value Reference Range Interpretation Comme nts TROPONIN I (test code = 2729092325) <0.012 See_Comment [Automated message] The system which generated this result transmitted reference range: <=0.034 ng/mL. The reference range was not used to interpret this result as normal/abnormal. BON (test code = BON) Equal or Less than 0.034 ng/ml---Normal ?Note: Cardiac troponin begins to [...] patient's use of biotin. ? Lab Interpretation (test code = 05465-8) [facility] [id number] 16:10:49Impression: Clear lungs. Elevated right hemidiaphragm.Exam: XR CHEST 1 10/01/2020 9:10 AM Clinical History: Chest pain Comparison: None Technique: frontal view of the chest Findings: The right hemidiaphragm is elevated.The lungs are clear. ?No pleural effusion. ?No pneumothorax. The cardiomediastinal silhouette is shifted to the left due to rotationwhich limits evaluation of the size. No acute osseous abnormality. Degenerative changes of spines are noted. [facility], Radiant Results Inft User - 10/01/2020 10:11 AM CSTExam: XR CHEST 1 10/01/2020 9:10 AMClinical History: Chest pain Comparison: NoneTechnique: frontal view of the chestFindings: The right hemidiaphragm is elevated.The lungs are clear. No pleural effusion. No pneumothorax. The cardiomediastinal silhouette is shifted to the left due to rotationwhich limits evaluation of the size.No acute osseous abnormality. Degenerative changesof spines are noted. IMPRESSIONImpression: Clear lungs. Elevated right hemidiaphragm.[facility] TROPONIN [id number] 15:50:00* Test Item Value Reference Range Interpretation Comme nts TROPONIN I (test code = 7881906368) <0.012 See_Comment [Automated message] The system which generated this result transmitted reference range: <=0.034 ng/mL. The reference range was not used to interpret this result as normal/abnormal. BON (test code = BON) Equal or Less than 0.034 ng/ml---Normal ?Note: Cardiac troponin begins to [...] patient's use of biotin. ? Lab Interpretation (test code = 95328-7) [facility] [id number] 15:48:00* Test Item Value Reference Range Interpretation Comme nts NT-proBNP (test code = 3914912714) 73 pg/mL See_Comment [Automated message] The system which generated this result transmitted reference range: <=125. The reference range was not used to interpret this result as normal/abnormal. BON (test code = BON) Biotin has been reported to cause a negative bias, interpret results relative to patient's use of biotin. Lab Interpretation (test code = 83617-3) [facility] MET[facility]OLIC PANEL (14105)2020-10-01 15:39:00* Test Item Value Reference Range Interpretation Comme nts NA (test code = 1313984424) 141 mmol/L 135-145 K (test code = 5499796085) 3.5 mmol/L 3.5-5 CL (test code = 7677434353) 106 mmol/L 98-108 CO2 TOTAL (test code = 0846249577) 26 mmol/L 23-31 AGAP (test code = 9076750576) 2-16 BUN (test code = 4637504709) 21 mg/dL 7-23 GLUCOSE (test code = 1473724450) 154 mg/dL 70-110 H CREATININE (test code = 8778298199) 0.64 mg/dL 0.5-1.04 TOTAL BILI (test code = 0320992006) 0.7 mg/dL 0.1-1.1 CALCIUM (test code = 7952074907) 9.6 mg/dL 8.6-10.6 T PROTEIN (test code = 8295249143) 7.8 g/dL 6.3-8.2 ALBUMIN (test code = 8466781634) 4.2 g/dL 3.5-5 ALK PHOS (test code = 1233373307) 77 U/L 34-122 ALTv (test code = 1742-6) 22 U/L 5-35 AST(SGOT) (test code = 9055317271) 19 U/L 13-40 eGFR Calculation (Non-) (test code = 9786269500) mL/min/1.73m2 eGFR Calculation () (test code = 1794135202) mL/min/1.73m2 BON (test code = BON) Association of [...] or abnormalities in imaging tests). Lab Interpretation (test code = 34348-3) [facility]2020-12-07 15:39:00* Test Item Value Reference Range Interpretation Comme nts MAGNESIUM (test code = 3372070646) 2.0 mg/dL 1.7-2.4 Lab Interpretation (test cod e = 68963-4) [facility]2020-12-07 15:38:00* Test Item Value Reference Range Interpretation Comme nts LIPASE (test code = 9265275018) 70 U/L 0-220 Lab Interpretation (test cod e = 90777-9) [facility] WITH [id number] 15:26:00* Test Item Value Reference Range Interpretation Comme nts WBC (test code = 6690-2) See_Comment [Automated [employer]a ge] The system which generated this result transmitted reference range: 4.30 - 11.10 10*3/?L. The reference range was not used to interpret this result as normal/abnormal. RBC (test code = 789-8) See_Comment H [[employer] ge] The system which generated this result transmitted reference range: 3.93 - 5.25 10*6/?L. The reference range was not used to interpret this result as normal/abnormal. HGB (test code = 718-7) 14.6 g/dL 11.6-15 HCT (test code = 4544-3) 44.7 % 35.7-45.2 MCV (test code = 787-2) 83.7 fL 80.6-95.5 MCH (test code = 785-6) 27.3 pg 25.9-32.8 MCHC (test code = 786-4) 32.7 g/dL 31.6-35.1 RDW-SD (test code = 12013-6) 38.5 fL 39-49.9 L RDW-CV (test code = 788-0) 12.7 % 12-15.5 PLT (test code = 777-3) See_Comment [Automated messa ge] The system which generated this result transmitted reference range: 166 - 358 10*3/?L. The reference range was not used to interpret this result as normal/abnormal. MPV (test code = 83548-2) 8.9 fL 9.5-12.9 L NRBC/100 WBC (test code = 7393636908) See_Comment [Automated [employer] ssage] The system which generated this result transmitted reference range: 0.0 - 10.0 /100 WBCs. The reference range was not used to interpret this result as normal/abnormal. NRBC x10^3 (test code = 6010173317) <0.01 See_Comment [Automated messa ge] The system which generated this result transmitted reference range: 10*3/?L. The reference range was not used to interpret this result as normal/abnormal. GRAN MAT (NEUT) % (test code = 770-8) 71.7 % IMM GRAN % (test code = 5762219266) 1.20 % LYMPH % (test code = 736-9) 20.7 % MONO % (test code = 5905-5) 5.5 % EOS % (test code = 713-8) 0.3 % BASO % (test code = 706-2) 0.6 % GRAN MAT x10^3(ANC) (test code = 9901916799) 6.22 10*3/uL 1.88-7.09 IMM GRAN x10^3 (test code = 4941586277) 0.10 10*3/uL 0-0.06 H LYMPH x10^3 (test code = 731-0) 1.80 10*3/uL 1.32-3.29 MONO x10^3 (test code = 742-7) 0.48 10*3/uL 0.33-0.92 EOS x10^3 (test code = 711-2) 0.03 10*3/uL 0.03-0.39 BASO x10^3 (test code = 704-7) 0.05 10*3/uL 0.01-0.07 Lab Interpretation (test code = 84103-8) Abnormal [facility]"
--- NOTE | 2024-01-03 06:09 | EDPHYS ---
Physician Documentation [facility] Name: Alda Paz Age: 58 yrs Sex: Female : 1965 Arrival Date: 01/03/2024 Time: 03:59 Bed 2 Private MD: ED Physician Temo Rios HPI: 01/02 05:08 This 58 yrs old Female presents to ER via Ambulatory with complaints of Lips ms3 Swelling, Facial Swelling, Allergic Reaction, PT STATES HER SCALP HAS KNOTS THAT HURTS. 05:08 58-year-old female with past medical history of hypertension presents to the emergency mo3 department for itchy bumps on her head, lip swelling. Patient states her symptoms began on Thursday and became worse tonight. Patient was seen at [facility] urgent care on Thursday. Patient denies any alleviating or inciting factors.. Historical: - Allergies: 04:40 Aspirin; km8 - Home Meds: 04:40 lisinopril 10 mg Oral tab 1 tab once daily [Active]; km8 - PMHx: 04:40 Hypertension; km8 - PSHx: 04:40 R shoulder SX; Tonsillectomy; km8 - Immunization history:: Client reports having NOT received the Covid vaccine. Flu vaccine is not up to date. - Social history:: Smoking status: Patient denies any tobacco usage or history of. Patient/guardian denies using alcohol, street drugs. ROS: 05:08 Constitutional: Negative for fever, and chills. Neck: Negative for injury, pain, and ms3 swelling, Cardiovascular: Negative for chest pain, and palpitations. 05:08 Abdomen/GI: Negative for abdominal pain, nausea, vomiting, diarrhea, and constipation, MS/Extremity: Negative for injury and deformity, 05:08 ENT: Positive for Lip swelling, 05:08 Skin: Positive for Urticaria on scalp, Exam: 05:08 Constitutional: This is a well developed, well nourished patient who is awake, alert, ms3 and in no acute distress. 05:08 Chest/axilla: Normal chest wall appearance and motion. Nontender with no deformity. Cardiovascular: Regular rate and rhythm with a normal S1 and S2. No gallops, murmurs, or rubs. Normal PMI, no JVD. No pulse deficits. Respiratory: Lungs have equal breath sounds bilaterally, clear to auscultation and percussion. No rales, rhonchi or wheezes noted. No increased work of breathing, no retractions or nasal flaring. Abdomen/GI: Soft, non-tender, with normal bowel sounds. No distension or tympany. No guarding or rebound. No evidence of tenderness throughout. Skin: Warm, dry with normal turgor. Normal color with no rashes, no lesions, and no evidence of cellulitis. MS/ Extremity: Pulses equal, no cyanosis. Neurovascular intact. Full, normal range of motion. 05:08 Head/face: Urticaria noted on scalp. 05:08 ENT: Right upper lip with mild swelling. Vital Signs: 04:15 BP 213 / 99; Pulse 82; Resp 20; Temp 98.4(TE); Pulse Ox 100% on R/A; Pain 5/10; km8 05:00 BP 210 / 104; Pulse 82; Resp 18; Pulse Ox 99% on R/A; km8 05:59 BP 180 / 116; Pulse 92; Pulse Ox 96% on R/A; tm6 06:38 Resp 18; Temp 98.4(O); tm6 04:15 Pain Scale: Adult km8 MDM: 04:45 Patient medically screened. ms3 05:08 Differential diagnosis: Allergic reaction versus idiopathic urticaria versus angioedema ms3 secondary to JUAN DIEGO inhibitor. ED course: On reevaluation patient's right upper lip swelling has resolved. Patient states her throat feels like a pill or something is stuck in it. Patient has drink water without relief. Will give additional 25 mg of Benadryl. 05:14 ED course: Patient requesting medication for anxiety at this time. 1 mg Ativan ordered..ms3 06:10 Data reviewed: vital signs, nurses notes, and as a result, I will discharge patient. I ms3 considered the following discharge prescriptions or medication management in the emergency department Medications were administered in the Emergency Department. See MAR. Historians other than the Patient: Spouse/Significant Other: Patient's . Care significantly affected by the following chronic conditions: Hypertension. Counseling: I had a detailed discussion with the patient and/or guardian regarding the historical points, exam findings, and any diagnostic results supporting the discharge/admit diagnosis, the need for outpatient follow up, to return to the emergency department if symptoms worsen or persist or if there are any questions or concerns that arise at home. ED course: On reevaluation patient symptoms improved, patient is alert and orient x 4, no apparent distress, nontoxic-appearing, speaking full sentences. Patient to follow-up Dr. Laguna in 2 to 3 days. Patient understands and agrees with plan. All questions were answered. Patient given prescription for prednisone 40 mg daily for 5 days. Return precautions discussed include worsening symptoms, or any other concerns. Administered Medications: 04:35 Drug: MethylPrednisoLONE IVP 125 mg IVP once Route: IVP; Site: left hand; km8 04:35 Drug: diphenhydrAMINE IVP 25 mg IVP once Route: IVP; Site: left hand; km8 04:35 Drug: Famotidine IVP 20 mg IVP once; dilute with 10 mL 0.9% NaCl; give over 2 minutes km8 Route: IVP; Site: left hand; 05:15 Drug: diphenhydrAMINE IVP 25 mg IVP once Route: IVP; Site: left hand; tm6 05:29 Drug: Ativan IVP 1 mg IVP once Route: IVP; Site: left hand; tm6 Disposition Summary: 01/03/24 06:09 Discharge Ordered Notes: Location: Home ms3 Condition: Stable ms3 Diagnosis - Urticaria, unspecified ms3 Followup: ms3 - With: Kingston Laguna DO - When: 2 - 3 days - Reason: Recheck today's complaints Discharge Instructions: - Discharge Summary Sheet ms3 - Hives, Glut-qx-Aema ms3 Forms: - Medication Reconciliation Form ms3 - Thank You Letter ms3 - Antibiotic Education ms3 - Prescription Opioid Use ms3 - Patient Portal Instructions ms3 - Leadership Thank You Letter ms3 Prescriptions: - Prednisone 20 mg Oral Tablet - take 2 tablets ORAL route once daily for 5 days; 10 tablet; Refills: 0, Product ms3 Selection Permitted Signatures: Temo Rios DO DO ms3 Nata Starks, RN RN km8 Jeyson Gamino RN RN tm6
--- NOTE | 2024-01-03 06:09 | ER ---
Nurse's Notes [facility] Name: Alda Paz Age: 58 yrs Sex: Female : 1965 Arrival Date: 01/03/2024 Time: 03:59 Bed 2 Private MD: Diagnosis: Urticaria, unspecified Presentation: 01/02 04:15 Chief complaint: Patient states: knots on head, neck, and behind ears for 4 days and km8 right upper lip swelling with SOB starting today; seen at [facility] urgent care in [place] 2 days ago and given ABX and hydroxizine with no relief. Coronavirus screen: Client denies travel out of the [place] in the last 14 days. Ebola Screen: No symptoms or risks identified at this time. Onset: The symptoms/episode began/occurred gradually. Anaphylaxis evaluation, angioedema beta myke use. Initial Sepsis Screen: Does the patient meet any 2 criteria? No. Patient's initial sepsis screen is negative. Does the patient have a suspected source of infection? No. Patient's initial sepsis screen is negative. Risk Assessment: Do you want to hurt yourself or someone else? Patient reports no desire to harm self or others. Onset of symptoms was January 03, 2024. 04:15 Acuity: KATIE 2 km8 04:15 Method Of Arrival: Ambulatory km8 Triage Assessment: 04:15 General: Appears in no apparent distress. uncomfortable, Behavior is appropriate for km8 age, anxious. Pain: Complains of pain in head Pain currently is 5 out of 10 on a pain scale. EENT: right upper lip swelling. Neuro: Level of Consciousness is awake, alert, obeys commands, Oriented to person, place, time, situation. Cardiovascular: Reports shortness of breath, Denies chest pain, Patient's skin is warm and dry. Respiratory: Airway is patent Respiratory effort is even, unlabored, Respiratory pattern is regular, symmetrical. : No signs and/or symptoms were reported regarding the genitourinary system. Derm: Skin is intact, is healthy with good turgor, Skin is dry, Skin is pink, warm \\T\\ dry. normal, Skin temperature is warm bumps on scalp, behind ears, and back of neck. Musculoskeletal: No signs and/or symptoms reported regarding the musculoskeletal system. Circulation, motion, and sensation intact. Range of motion: intact in all extremities. 04:15 GI: No signs and/or symptoms were reported involving the gastrointestinal system. km8 Historical: - Allergies: 04:40 Aspirin; km8 - Home Meds: 04:40 lisinopril 10 mg Oral tab 1 tab once daily [Active]; km8 - PMHx: 04:40 Hypertension; km8 - PSHx: 04:40 R shoulder SX; Tonsillectomy; km8 - Immunization history:: Client reports having NOT received the Covid vaccine. Flu vaccine is not up to date. - Social history:: Smoking status: Patient denies any tobacco usage or history of. Patient/guardian denies using alcohol, street drugs. Screenin:15 [facility] ED Fall Risk Assessment (Adult) History of falling in the last 3 months, km8 including since admission No falls in past 3 months (0 pts) Confusion or Disorientation No (0 pts) Intoxicated or Sedated No (0 pts) Impaired Gait No (0 pts) Mobility Assist Device Used No (0 pt) Altered Elimination No (0 pt) Score/Fall Risk Level 0 - 2 = Low Risk Oriented to surroundings, Maintained a safe environment, Educated pt \\T\\ family on fall prevention, incl call for assistance when getting out of bed, Assessed \\T\\ reinforced patient's understanding of fall precautions. Abuse screen: Denies threats or abuse. Denies injuries from another. Nutritional screening: No deficits noted. Tuberculosis screening: No symptoms or risk factors identified. Assessment: 04:15 Reassessment: see triage assessment/notes. 8 05:00 Reassessment: Patient appears in no apparent distress at this time. No changes from 8 previously documented assessment. Patient and/or family updated on plan of care and expected duration. Pain level reassessed. Patient is alert, oriented x 3, equal unlabored respirations, skin warm/dry/pink. 05:00 Respiratory: Airway is patent Respiratory effort is even, Breath sounds are clear tm6 06:03 Reassessment: patient states "I feel anxious in my legs". Respiratory: Airway is patent.6 Vital Signs: 04:15 BP 213 / 99; Pulse 82; Resp 20; Temp 98.4(TE); Pulse Ox 100% on R/A; Pain 5/10; km8 05:00 BP 210 / 104; Pulse 82; Resp 18; Pulse Ox 99% on R/A; km8 05:59 BP 180 / 116; Pulse 92; Pulse Ox 96% on R/A; tm6 06:38 Resp 18; Temp 98.4(O); tm6 04:15 Pain Scale: Adult km8 ED Course: 04:03 Patient arrived in ED. gm2 04:07 Temo Rios DO is Attending Physician. ms3 04:15 Patient maintains SpO2 saturation greater than 95% on room air. km8 04:15 Patient has correct armband on for positive identification. Bed in low position. Call km8 light in reach. Side rails up X 1. Pulse ox on. NIBP on. Door closed. Lights dimmed. Warm blanket given. 04:30 Arm band placed on right wrist. km8 04:32 Inserted saline lock: 22 gauge in left hand, using aseptic technique. Blood collected. km8 04:35 Nata Starks, CECELIA is Primary Nurse. km8 04:40 Triage completed. km8 05:25 Assisted to bathroom. km8 05:56 No provider procedures requiring assistance completed. km8 06:07 Kingston Laguna DO is Referral Physician. ms3 06:39 IV discontinued, intact, bleeding controlled, No redness/swelling at site. Pressure tm6 dressing applied. 06:39 Provided Education on: follow up with primary care physician. tm6 Administered Medications: 04:35 Drug: MethylPrednisoLONE IVP 125 mg IVP once Route: IVP; Site: left hand; km8 04:35 Drug: diphenhydrAMINE IVP 25 mg IVP once Route: IVP; Site: left hand; km8 04:35 Drug: Famotidine IVP 20 mg IVP once; dilute with 10 mL 0.9% NaCl; give over 2 minutes km8 Route: IVP; Site: left hand; 05:15 Drug: diphenhydrAMINE IVP 25 mg IVP once Route: IVP; Site: left hand; tm6 05:29 Drug: Ativan IVP 1 mg IVP once Route: IVP; Site: left hand; tm6 Medication: 05:56 VIS not applicable for this client. km8 Outcome: 06:09 Discharge ordered by . ms3 06:39 Discharged to home ambulatory, with family, tm6 06:39 Condition: stable 06:39 Discharge instructions given to patient, family, Instructed on discharge instructions, follow up and referral plans. medication usage, Demonstrated understanding of instructions, follow-up care, medications, Prescriptions given X 1, 06:40 Patient left the ED. tm6 Signatures: Temo Rios DO DO ms3 Elsa Solares gm2 Nata Starks, CECELIA RN 8 Jeyson Gamino RN RN tm6 Corrections: (The following items were deleted from the chart) 04:30 Chief complaint: Patient states: knots on head, neck, and behind ears for 4 days km8 and right upper lip swelling with SOB starting today; seen at [facility] urgent care in [place] 2 days ago and given ABX and hydroxizine with no relief [facility] 04:30 Coronavirus screen: Client denies travel out of the [place] in the last 14 days. [place] [id number] 04:30 Ebola Screen: No symptoms or risks identified at this time. [place] [id number] 46 04:30 Onset: The symptoms/episode began/occurred gradually, [place] [address] 04:30 Anaphylaxis evaluation, angioedema beta myke use [place] [address] 46 04:30 Initial Sepsis Screen: Does the patient meet any 2 criteria? No. Patient's [facility] initial sepsis screen is negative. Does the patient have a suspected source of infection? No. Patient's initial sepsis screen is negative. [facility] 46 04:30 Risk Assessment: Do you want to hurt yourself or someone else? Patient reports no [facility] desire to harm self or others. [facility] 04:30 Onset of symptoms was January 03, 2024 [place] [address] 46 04:30 Method Of Arrival: Ambulatory [place] [address] 46 04:30 BP 213 / 99; Pulse 82bpm; Resp 20bpm; Pulse Ox 100% RA; Temp 98.4F Temporal; Pain [facility] 03/04, Adult; [facility] 46 04:30 Acuity: KATIE 2 [place] [address] 47 04:30 General: Appears in no apparent distress. uncomfortable, Behavior is appropriate [facility] for age, anxious, [facility] 47 04:30 Pain: Complains of pain in head Pain currently is 5 out of 10 on a pain scale. [facility] 04:47 04:30 EENT: right upper lip swelling. km8 8 04:30 Neuro: Level of Consciousness is awake, alert, obeys commands, Oriented to km8 person, place, time, situation, [facility] 04:30 Cardiovascular: Reports shortness of breath, Denies chest pain, Patient's skin is km8 warm and dry. 8 04:30 Respiratory: Airway is patent Respiratory effort is even, unlabored, Respiratory km8 pattern is regular, symmetrical, [facility] 04:30 GI: No signs and/or symptoms were reported involving the gastrointestinal system. km8 8 04:30 : No signs and/or symptoms were reported regarding the genitourinary system. 88 04:30 Derm: Skin is intact, is healthy with good turgor, Skin is dry, Skin is pink, km8 warm \\T\\ dry. normal, Skin temperature is warm bumps on scalp, behind ears, and back of neck [facility] 04:30 Musculoskeletal: No signs and/or symptoms reported regarding the musculoskeletal km8 system. Circulation, motion, and sensation intact. Range of motion: intact in all extremities, 8
[2024-01-03 07:12] VITALS: BP 180/116; TEMP 98.4; O2SAT 96
== END ==
LOC: ER 03:59
DX: L50.9 Urticaria, unspecified (principal); R22.9 Localized swelling, mass and lump, unspecified; I10 Essential (primary) hypertension; Z88.6 Allergy status to analgesic agent; Z28.310 Unvaccinated for COVID-19
CPT/HCPCS: J1200 ×2; J2930; 96374; 96375; 99285

== ENCOUNTER 2024-01-08 03:52 | Observation (INO) | payer OTHER ==
--- OUTSIDE RECORDS SUMMARY | 2024-01-08 03:56 | XMS REPORT | Continuity of Care Document ---
Author Name Unknown Address [address] [facility] [place] [address] [facility] Address [address] [facility] [address] [place] [address] Care Team Providers Care Rubber Insulator Name Role Phone Lab, Adc Fam Pob I Attending Clinician Unavailab Lois Coleman Attending Clinician Doctor Unassigned, [place] Attending Clinician U Nini Reeves MD Attending Clinician [phone] Joselin Serna Attending Clinician RADIOLOGY Attending Clinician Unavailable Samson García DO Attending Clinician Payers Payer Name Policy Type Policy Number Effective Date Expirati on Date Source FORMERLY [facility]BR[employer] CLAIMS [id number] 2019 00:00:00 Problems Condition Name Condition Details Condition Category Status Onset Date Resolution Date Last Treatment Date Treating Clinician Comments Source No known active problems No known active problems Disease [facility] Allergies, Adverse Reactions, Alerts Allergy Name Allergy Type Status Severity Reaction(s) Onset Date Inactive Date Treating Clinician Comments Source ASPIRIN DRUG INGREDI Active Hives 05-10 00:00: 00 [facility] Aspirin Propensi ty to adverse reaction s Active Hives 05-10 00:00: 00 Able to take ibuprofen and naproxen without reaction [facility] Social History Social Habit Start Date Stop Date Quantity Comments Source Exposure to SARS-CoV-2 (event) Not sure [facility] Sex Assigned At 1965 00:00:00 1965 00:00:00 [facility] Smoking Status Start Date Stop Date Source Unknown if ever smoked [facility] Medications Ordered Medication Name Filled Medication Name Start Date Stop Date Current Medication? Ordering Clinician Indication Dosage Frequency Signature (SIG) Comments Components Source ondansetron (ZOFRAN (PF)) injection 4 mg 05-19 19:45: 00 05-19 18:39 :00 No 4mg 4 mg, Slow IV Push, ONCE, 1 dose, Lawrence 05/19/21 at 1445, [facility] morpHINE injection 2 mg 05-19 19:45: 00 05-19 18:39 :00 No 2mg 2 mg, Slow IV Push, ONCE, 1 dose, Lawrence 05/19/21 at 1445, STAT [facility] iopamidol (ISOVUE 370-500 mL) injection 120 mL 05-19 17:53: 00 05-19 17:50 :00 No [id number] 120mL 120 mL, Intravenou s, ONCE, 1 dose, Lawrence 05/19/21 at 1315, Routine [facility] HYDROcodone -acetaminop hen (NORCO 5) 5-325 mg tablet 1 tablet 05-19 17:15: 00 05-19 16:30 :00 No 1{tbl} 1 tablet, Oral, ONCE, 1 dose, Lawrence 05/19/21 at 1215, [place] [facility] traMADoL 50 mg tablet 05-19 00:00: 00 05-25 04:59 :00 No [id number] 50mg Take 1 tablet by mouth every 6 (six) hours as needed for Pain (scale 7-10) for up to 5 days. Indication s: acute pain [facility] naproxen sodium (ANAPROX DS) 550 mg tablet 2019-10 00:00: 00 Yes [id number] 550mg Take 1 tablet by mouth 2 (two) times daily with meals. [facility] methylPREDN ISolone (MEDROL, EBER,) 4 mg tablets 2019-10 00:00: 00 Yes [id number] Take by mouth SEE-INSTRU CTIONS. follow package directions [facility] naproxen sodium (ANAPROX DS) 550 mg tablet 2019-10 00:00: 00 Yes [id number] 550mg Take 1 tablet by mouth 2 (two) times daily with meals. [facility] methylPREDN ISolone (MEDROL, EBER,) 4 mg tablets 2019-10 00:00: 00 Yes [id number] Take by mouth SEE-INSTRU CTIONS. follow package directions [facility] naproxen sodium (ANAPROX DS) 550 mg tablet 2019-10 00:00: 00 Yes [id number] 550mg Take 1 tablet by mouth 2 (two) times daily with meals. [facility] methylPREDN ISolone (MEDROL, EBER,) 4 mg tablets 2019-10 00:00: 00 Yes [id number] Take by mouth SEE-INSTRU CTIONS. follow package directions [facility] naproxen sodium (ANAPROX DS) 550 mg tablet 2019-10 00:00: 00 Yes [id number] 550mg Take 1 tablet by mouth 2 (two) times daily with meals. [facility] methylPREDN ISolone (MEDROL, EBER,) 4 mg tablets 2019-10 00:00: 00 Yes [id number] Take by mouth SEE-INSTRU CTIONS. follow package directions [facility] naproxen sodium (ANAPROX DS) 550 mg tablet 2019-10 00:00: 00 Yes [id number] 550mg Take 1 tablet by mouth 2 (two) times daily with meals. [facility] methylPREDN ISolone (MEDROL, EBER,) 4 mg tablets 2019-10 00:00: 00 Yes [id number] Take by mouth SEE-INSTRU CTIONS. follow package directions [facility] methocarbam oL 500 mg tablet 2019-10 00:00: 00 10-07 05:59 :00 No [id number] 500mg Take 1 tablet by mouth 3 (three) times daily for 5 days. [facility] ibuprofen 600 mg tablet 01-30 00:00: 00 Yes 600mg Take 1 tablet by mouth every 8 (eight) hours as needed (only use if Tylenol does not help). [facility] ibuprofen 600 mg tablet 01-30 00:00: 00 Yes 600mg Take 1 tablet by mouth every 8 (eight) hours as needed (only use if Tylenol does not help). [facility] ibuprofen 600 mg tablet 01-30 00:00: 00 Yes 600mg Take 1 tablet by mouth every 8 (eight) hours as needed (only use if Tylenol does not help). [facility] ibuprofen 600 mg tablet 01-30 00:00: 00 Yes 600mg Take 1 tablet by mouth every 8 (eight) hours as needed (only use if Tylenol does not help). [facility] ibuprofen 600 mg tablet 01-30 00:00: 00 Yes 600mg Take 1 tablet by mouth every 8 (eight) hours as needed (only use if Tylenol does not help). [facility] Vital Signs Vital Name Observation Time Observation Value Comments S rhiannajennifer Systolic blood pressure 2021-05-19 18:10:00 173 mm[Hg] [facility] Diastolic blood pressure 2021-05-19 18:10:00 92 mm[Hg] [facility] Heart rate 2021-05-19 18:10:00 59 /min [facility] Respiratory rate 2021-05-19 18:10:00 21 /min [facility] Oxygen saturation in Arterial blood by Pulse oximetry 2021-05-19 18:10:00 94 /min [facility] Body temperature 2021-05-19 16:32:34 36.5 [facility] Body height 2021-05-19 16:01:00 157.5 cm [facility] Body weight 2021-05-19 16:01:00 95.255 kg [facility] BMI 2021-05-19 16:01:00 38.41 kg/m2 [facility] Systolic blood pressure 2021-05-19 18:10:00 173 mm[Hg] [facility] Diastolic blood pressure 2021-05-19 18:10:00 92 mm[Hg] [facility] Heart rate 2021-05-19 18:10:00 59 /min [facility] Respiratory rate 2021-05-19 18:10:00 21 /min [facility] Oxygen saturation in Arterial blood by Pulse oximetry 2021-05-19 18:10:00 94 /min [facility] Body temperature 2021-05-19 16:32:34 36.5 [facility] Body height 2021-05-19 16:01:00 157.5 cm [facility] Body weight 2021-05-19 16:01:00 95.255 kg [facility] BMI 2021-05-19 16:01:00 38.41 kg/m2 [facility] Systolic blood pressure 2020-10-01 18:00:00 156 mm[Hg] [facility] Diastolic blood pressure 2020-10-01 18:00:00 77 mm[Hg] [facility] Heart rate 2020-10-01 18:00:00 54 /min [facility] Respiratory rate 2020-10-01 18:00:00 11 /min [facility] Oxygen saturation in Arterial blood by Pulse oximetry 2020-10-01 18:00:00 100 /min [facility] Body temperature 2020-10-01 16:42:00 36.72 [facility] Body weight 2020-10-01 15:11:00 95.255 kg [facility] BMI 2020-10-01 15:11:00 36.05 kg/m2 [facility] Systolic blood pressure 2020-10-01 18:00:00 156 mm[Hg] [facility] Diastolic blood pressure 2020-10-01 18:00:00 77 mm[Hg] [facility] Heart rate 2020-10-01 18:00:00 54 /min [facility] Respiratory rate 2020-10-01 18:00:00 11 /min [facility] Oxygen saturation in Arterial blood by Pulse oximetry 2020-10-01 18:00:00 100 /min [facility] Body temperature 2020-10-01 16:42:00 36.72 Kell[facility] Body weight 2020-10-01 15:11:00 95.255 kg [facility] BMI 2020-10-01 15:11:00 36.05 kg/m2 [facility] Procedures Procedure Date / Time Performed Performing Clinicia n Source CT ABDOMEN PELVIS W CONTRAST 2021-05-19 18:03:23 Joselin Mason [facility] COMP. METABOLIC PANEL ([id number]) 2021-05-19 17:07:00 Joselin Mason [facility] LIPASE 2021-05-19 17:07:00 Joselin Mason [facility] TROPONIN I 2021-05-19 17:07:00 Joselin Mason [facility] XR RIBS 4+ VW RIGHT 2021-05-19 16:55:02 Joselin Mason [facility] CBC WITH DIFF 2021-05-19 16:31:00 Joselin Mason U [facility] URINALYSIS 2021-05-19 16:31:00 Joselin Mason Un [facility] NOTICE OF PRIVACY PRACTICES 2021-05-19 15:50:33 Doctor Unassigned, [place] [facility] CONSENT/REFUSAL FOR DIAGNOSIS AND TREATMENT 2021-05-19 15:40:35 Doctor Unassigned, [place] [facility] TROPONIN I 2020-10-01 17:06:00 Samson García [facility] XR CHEST 1 VW 2020-10-01 15:32:00 Samson García [facility] LIPASE 2020-10-01 15:19:00 Samson García [facility] MAGNESIUM 2020-10-01 15:19:00 Samson García [facility] TROPONIN I 2020-10-01 15:19:00 Samson García [facility] COMP. METABOLIC PANEL ([id number]) 2020-10-01 15:19:00 Samson García [facility] CBC WITH DIFF 2020-10-01 15:19:00 Samson García [facility] N-TERMINAL PRO-BNP 2020-10-01 15:19:00 Samson García [facility] Encounters Start Date/Time End Date/Time Encounter Type Admission Type Attending Clinicians Care Facility Care Department Encounter ID Source 2021-08-26 10:35:38 Emergency [facility] [id number] [facility] 2021-08-24 09:33:31 Emergency [facility] [id number] [facility] 2021-05-31 09:24:58 2021-05-31 09:44:58 Laboratory Only Lab, Adc Fam Urielb Lois Pereira [facility] Office [address] .114 350.1.13.10 4.2.7.2.686 [id number] [facility] 2021-05-31 09:20:00 2021-05-31 09:20:00 Outpatient R [facility] [id number] [facility] 2021-05-31 00:00:00 2021-05-31 00:00:00 Letter (Out) Doctor Unassigned, [place] [facility] 1.114 350.1.13.10 4.2.7.2.686 [id number] [facility] 2021-05-31 00:00:00 2021-05-31 00:00:00 Telephone Nini Mckenzie [facility] [address] . 350.1.13.10 4.2.7.2.686 [id number] [facility] 2021-05-19 10:52:00 2021-05-19 14:30:00 Emergency Joselin Mason [facility] 1.114 350.1.13.10 4.2.7.2.686 [id number] 2021-05-19 10:52:00 2021-05-19 14:30:00 Emergency Joselin Mason [facility] [id number] 350.1.13.10 4.2.7.2.686 [id number] [facility] 2020-10-10 00:00:00 2020-10-10 00:00:00 Outpatient R RADIOLOGY [facility] [id number] [facility] 2020-10-01 09:08:00 2020-10-01 12:24:00 Emergency Singer [facility] [id number] [id number] 4.2.7.2.686 [id number] 2020-10-01 09:08:00 2020-10-01 12:24:00 Emergency Singer [facility] [id number] 350.1.13.10 4.2.7.2.686 [id number] [facility] Results Test Description Test Time Test [...] the pelvis. No acute osseousabnormality is demonstrated. Himb, Radiant Results Inft User - 05/19/2021 1:21 [...] indicated.3. A fibroid uterus is present.RL: [id number] [facility]. METABOLIC PANEL (62616)2021-05-19 17:56:56* Test Item Value Reference Range Interpretation Comme nts NA (test code = 1437558174) 138 mmol/L 135-145 K (test code = 5397878324) 3.8 mmol/L 3.5-5.0 CL (test code = 1450534174) 105 mmol/L 98-108 CO2 TOTAL (test code = 9989871014) 26 mmol/L 23-31 AGAP (test code = 6349623696) 2-16 BUN (test code = 5693805300) 17 mg/dL 7-23 GLUCOSE (test code = 0227306361) 118 mg/dL 70-110 H CREATININE (test code = 0337362089) 0.49 mg/dL 0.50-1.04 L TOTAL BILI (test code = 2609649929) 0.7 mg/dL 0.1-1.1 CALCIUM (test code = 3783787861) 9.6 mg/dL 8.6-10.6 T PROTEIN (test code = 8392682971) 7.5 g/dL 6.3-8.2 ALBUMIN (test code = 0656281341) 4.0 g/dL 3.5-5.0 ALK PHOS (test code = 1026641008) 98 U/L 34-122 ALTv (test code = 1742-6) 21 U/L 5-35 AST(SGOT) (test code = 5883709971) 25 U/L 13-40 eGFR (test code = 2472800037) mL/min/1.73m2 BON (test code = BON) Association [...] imaging tests). Lab Interpretation (test code = 61191-3) [facility]56:35* Test Item Value Reference Range Interpretation Comme nts LIPASE (test code = 8792041653) 91 U/L 0-220 Lab Interpretation (test cod e = 41983-2) [facility] 17:48:44* Test Item Value Reference Range Interpretation Comme nts APPEARANCE (test code = 5234954053) Hazy Clear A COLOR (test code = 3781607915) Yellow Yellow PH (test code = 7301384797) 4.8-8.0 SP GRAVITY (test code = 4416203148) 1.003-1.030 GLU U QUAL (test code = 5249945032) Normal Normal BLOOD (test code = 8446847768) Negative Negative KETONES (test code = 5876999772) Negative Negative PROTEIN (test code = 2887-8) Negative Negative UROBILIN (test code = 5428456234) 4.0 mg/dL Normal A BILIRUBIN (test code = 1445843458) 2 mg/dL Negative A NITRITE (test code = 6006707900) Negative Negative LEUK CHRISTIANE (test code = 1699097586) Negative Negative RBC/HPF (test code = 5830881451) See_Comment [Automated [employer]] The system which generated this result transmitted reference range: 0 - 3 HPF. The reference range was not used to interpret this result as normal/abnormal. WBC/HPF (test code = 1000717015) <1 See_Comment [Automated [employer]] The system which generated this result transmitted reference range: 0 - 5 HPF. The reference range was not used to interpret this result as normal/abnormal. BACTERIA (test code = 5084259501) Negative Negative MUCOUS (test code = 0031025779) Slight Negative LPF A SQ EPITH (test code = 8387378505) HPF Ictotest (test code = 6402128643) Positive Lab Interpretation (test code = 12292-6) [facility] VW [id number] 17:30:551. No acute cardiopulmonary disease. 2. No displaced right rib fractures. RL: 518 AFC: 12395 End ofreport ORDERING PHYSICIAN: JOSELIN MASON CLINICAL [...] disease.2. No displaced right rib fractures.RL: 518AFC: 51051Upz of report [facility] WITH [id number] 16:39:11* Test Item Value Reference Range Interpretation [...] 32.4 g/dL 31.6-35.1 RDW-SD (test code = 33575-6) 39.7 fL 39.0-49.9 RDW-CV (test code = 788-0) 13.0 % 12.0-15.5 PLT (test code = 777-3) See_Comment [Automated messa ge] The system which generated this result transmitted reference range: 166 - 358 10*3/?L. The reference range was not used to interpret this result as normal/abnormal. MPV (test code = 29289-1) 9.0 fL 9.5-12.9 L NRBC/100 WBC (test code = 1981883745) See_Comment [Automated Karisma Kidz ssage] The system which generated this result transmitted reference range: 0.0 - 10.0 /100 WBCs. The reference range was not used to interpret this result as normal/abnormal. NRBC x10^3 (test code = 5444338635) <0.01 See_Comment [Automated messa ge] The system which generated this result transmitted reference range: 10*3/?L. The reference range was not used to interpret this result as normal/abnormal. GRAN MAT (NEUT) % (test code = 770-8) 62.1 % IMM GRAN % (test code = 2923199447) 0.30 % LYMPH % (test code = 736-9) 25.0 % MONO % (test code = 5905-5) 9.1 % EOS % (test code = 713-8) 2.8 % BASO % (test code = 706-2) 0.7 % GRAN MAT x10^3(ANC) (test code = 7438751366) 3.76 10*3/uL 1.88-7.09 IMM GRAN x10^3 (test code = 9006451374) <0.03 0.00-0.06 LYMPH x10^3 (test code = 731-0) 1.51 10*3/uL 1.32-3.29 MONO x10^3 (test code = 742-7) 0.55 10*3/uL 0.33-0.92 EOS x10^3 (test code = 711-2) 0.17 10*3/uL 0.03-0.39 BASO x10^3 (test code = 704-7) 0.04 10*3/uL 0.01-0.07 Lab Interpretation (test code = 85752-0) Abnormal [facility] [id number] 17:50:00* Test Item Value Reference Range Interpretation Comme nts TROPONIN I (test code = 2776054008) <0.012 See_Comment [Automated message] The system which [...] biotin. ? Lab Interpretation (test code = 69903-2) [facility] [id number] 16:10:49Impression: Clear lungs. Elevated right hemidiaphragm.Exam: XR [...] abnormality. Degenerative changes of spines are noted. Himb, Radiant Results Inft User - 10/01/2020 10:11 [...] are noted. IMPRESSIONImpression: Clear lungs. Elevated right hemidiaphragm.[facility] TROPONIN [id number] 15:50:00* Test Item Value Reference Range Interpretation Comme nts TROPONIN I (test code = 2699274150) <0.012 See_Comment [Automated message] The system which [...] biotin. ? Lab Interpretation (test code = 03798-7) [facility] [id number] 15:48:00* Test Item Value Reference Range Interpretation Comme nts NT-proBNP (test code = 2082726115) 73 pg/mL See_Comment [Automated message] The system which generated this result transmitted reference range: <=125. The reference range was not used to interpret this result as normal/abnormal. BON (test code = BON) Biotin has been reported to cause a negative bias, interpret results relative to patient's use of biotin. Lab Interpretation (test code = 94258-1) [facility]OLIC PANEL (57150)2020-10-01 15:39:00* Test Item Value Reference Range Interpretation Comme nts NA (test code = 3376561381) 141 mmol/L 135-145 K (test code = 0655663854) 3.5 mmol/L 3.5-5 CL (test code = 4170526787) 106 mmol/L 98-108 CO2 TOTAL (test code = 3913785567) 26 mmol/L 23-31 AGAP (test code = 6882107573) 2-16 BUN (test code = 7840044767) 21 mg/dL 7-23 GLUCOSE (test code = 3240735291) 154 mg/dL 70-110 H CREATININE (test code = 5659285278) 0.64 mg/dL 0.5-1.04 TOTAL BILI (test code = 7333607411) 0.7 mg/dL 0.1-1.1 CALCIUM (test code = 8840941656) 9.6 mg/dL 8.6-10.6 T PROTEIN (test code = 1395951904) 7.8 g/dL 6.3-8.2 ALBUMIN (test code = 2909583133) 4.2 g/dL 3.5-5 ALK PHOS (test code = 6778712494) 77 U/L 34-122 ALTv (test code = 1742-6) 22 U/L 5-35 AST(SGOT) (test code = 0073352958) 19 U/L 13-40 eGFR Calculation (Non-) (test code = 8175705601) mL/min/1.73m2 eGFR Calculation () (test code = 4476986667) mL/min/1.73m2 BON (test code = BON) Association [...] imaging tests). Lab Interpretation (test code = 22936-6) [facility] 15:39:00* Test Item Value Reference Range Interpretation Comme nts MAGNESIUM (test code = 5392114641) 2.0 mg/dL 1.7-2.4 Lab Interpretation (test cod e = 82602-3) [facility] 15:38:00* Test Item Value Reference Range Interpretation Comme nts LIPASE (test code = 5484868702) 70 U/L 0-220 Lab Interpretation (test cod e = 17441-8) [facility] [id number] 15:26:00* Test Item Value Reference Range Interpretation Comme nts WBC (test code = 6690-2) See_Comment [Automated [employer]] The system which generated this result transmitted reference range: 4.30 - 11.10 10*3/?L. The reference range was not used to interpret this result as normal/abnormal. RBC (test code = 789-8) See_Comment H [[employer]ated [employer]] The system which generated this result [...] 32.7 g/dL 31.6-35.1 RDW-SD (test code = 02798-3) 38.5 fL 39-49.9 L RDW-CV (test code = 788-0) 12.7 % 12-15.5 PLT (test code = 777-3) See_Comment [Automated messa ge] The system which generated this result transmitted reference range: 166 - 358 10*3/?L. The reference range was not used to interpret this result as normal/abnormal. MPV (test code = 82234-7) 8.9 fL 9.5-12.9 L NRBC/100 WBC (test code = 2099998807) See_Comment [Automated Karisma Kidz ssage] The system which generated this result transmitted reference range: 0.0 - 10.0 /100 WBCs. The reference range was not used to interpret this result as normal/abnormal. NRBC x10^3 (test code = 9347849539) <0.01 See_Comment [Automated messa ge] The system which generated this result transmitted reference range: 10*3/?L. The reference range was not used to interpret this result as normal/abnormal. GRAN MAT (NEUT) % (test code = 770-8) 71.7 % IMM GRAN % (test code = 6904408306) 1.20 % LYMPH % (test code = 736-9) 20.7 % MONO % (test code = 5905-5) 5.5 % EOS % (test code = 713-8) 0.3 % BASO % (test code = 706-2) 0.6 % GRAN MAT x10^3(ANC) (test code = 0159993168) 6.22 10*3/uL 1.88-7.09 IMM GRAN x10^3 (test code = 4452243942) 0.10 10*3/uL 0-0.06 H LYMPH x10^3 (test code = 731-0) 1.80 10*3/uL 1.32-3.29 MONO x10^3 (test code = 742-7) 0.48 10*3/uL 0.33-0.92 EOS x10^3 (test code = 711-2) 0.03 10*3/uL 0.03-0.39 BASO x10^3 (test code = 704-7) 0.05 10*3/uL 0.01-0.07 Lab Interpretation (test code = 83298-8) [facility]"
[2024-01-08] MEDS ORDERED: METHYLPREDNISOLONE 125 MG INJ ONE (04:34)
[2024-01-08] MEDS ORDERED: FAMOTIDINE 20 MG/2 ML VIAL IV ONE ×2 (04:35→06:46)
[2024-01-08] MEDS ORDERED: DIAZEPAM 10 MG/2 ML INJ SYRINGE ONE (04:35)
[2024-01-08] MEDS ORDERED: cloNIDine HCL 0.1 MG TAB ONE (04:35)
[2024-01-08] MEDS ORDERED: DIPHENHYDRAMINE 50 MG/ML VIAL ONE (04:35)
[2024-01-08] MEDS ORDERED: AMLODIPINE 10 MG TAB ONE (06:10)
--- NOTE | 2024-01-08 06:10 | ER ---
Nurse's Notes [facility] Name: Alda Paz Age: 58 yrs Sex: Female : 1965 Arrival Date: 01/08/2024 Time: 03:52 Bed 8 Private MD: Diagnosis: Chest pain, unspecified Presentation: 01/07 04:27 Chief complaint: Patient states: C/o red rash to neck and forehead. Pt states " I feel cg like someone is choking me". Was here Thursday for the same thing. Coronavirus screen: Vaccine status: Patient reports receiving the 2nd dose of the covid vaccine. Ebola Screen: Patient negative for fever greater than or equal to 101.5 degrees Fahrenheit, and additional compatible Ebola Virus Disease symptoms. Initial Sepsis Screen: Does the patient meet any 2 criteria? No. Patient's initial sepsis screen is negative. Risk Assessment: Do you want to hurt yourself or someone else? Patient reports no desire to harm self or others. Onset of symptoms was January 05, 2024. 04:27 Method Of Arrival: Ambulatory cg 04:27 Acuity: KATIE 3 cg 05:30 Initial Sepsis Screen: Does the patient have a suspected source of infection? No. vc1 Patient's initial sepsis screen is negative. Triage Assessment: 04:30 General: Appears in no apparent distress. uncomfortable, obese, well groomed, well pf1 developed, Behavior is cooperative, appropriate for age, quiet. 04:30 Pain: Complains of pain in throat. Derm: Reports since onset on Thursday. rash to face pf1 and neck. Historical: - Allergies: 05:29 Aspirin; vc1 - PMHx: 05:29 Hypertension; vc1 - PSHx: 05:29 R shoulder SX; Tonsillectomy; vc1 - Immunization history:: Flu vaccine status is unknown. - Social history:: Smoking status: Patient denies any tobacco usage or history of. - Family history:: not pertinent. Screenin:29 Abuse screen: Denies threats or abuse. Nutritional screening: No deficits noted. vc1 Tuberculosis screening: No symptoms or risk factors identified. 05:30 [facility] ED Fall Risk Assessment (Adult) History of falling in the last 3 months, vc1 including since admission No falls in past 3 months (0 pts) Confusion or Disorientation No (0 pts) Intoxicated or Sedated Yes (3 pts) Impaired Gait No (0 pts) Mobility Assist Device Used No (0 pt) Altered Elimination No (0 pt) Score/Fall Risk Level 0 - 2 = Low Risk Oriented to surroundings, Maintained a safe environment, Educated pt \\T\\ family on fall prevention, incl call for assistance when getting out of bed. Assessment: 04:30 General: Appears in no apparent distress. uncomfortable, obese, well groomed, well pf1 developed, Behavior is cooperative, anxious, quiet. 04:30 Pain: Complains of pain in throat Pain does not radiate. Pain currently is 7 out of 10 pf1 on a pain scale. Quality of pain is described as onset 2 weeks. Neuro: No deficits noted. Level of Consciousness is awake, alert, obeys commands, Oriented to person, place, time, situation. Cardiovascular: No deficits noted. Capillary refill < 3 seconds Patient's skin is warm and dry. Respiratory: Airway is patent Respiratory effort is even, unlabored, Respiratory pattern is regular, symmetrical, Breath sounds are clear bilaterally. GI: No deficits noted. Abdomen is round non-distended, obese, Bowel sounds present X 4 quads. Abd is soft and non tender X 4 quads. : No deficits noted. No signs and/or symptoms were reported regarding the genitourinary system. EENT: No deficits noted. No signs and/or symptoms were reported regarding the EENT system. Derm: Reports since onset Thursday. rash to neck and face. 05:47 General: Appears in no apparent distress. comfortable, Behavior is anxious. Pain: vc1 Complains of pain in throat Pain does not radiate. Pain currently is 7 out of 10 on a pain scale. Quality of pain is described as sharp, Aggravated by eating, drinking, Noted to be grimacing, Also complains of decreased appetite. Neuro: Level of Consciousness is awake, alert, obeys commands, Oriented to person, place, time, situation, Appropriate for age. Cardiovascular: Heart tones S1 S2 Capillary refill < 3 seconds Patient's skin is warm and dry. Respiratory: Airway is patent Respiratory effort is even, unlabored, Respiratory pattern is regular, symmetrical, Breath sounds are clear. GI: Abdomen is round non-distended, obese, Bowel sounds present X 4 quads. Abd is soft and non tender. : No deficits noted. No signs and/or symptoms were reported regarding the genitourinary system. EENT: No deficits noted. No signs and/or symptoms were reported regarding the EENT system. Derm: No deficits noted. No signs and/or symptoms reported regarding the dermatologic system. 07:16 Reassessment: Pharmacy was contacted about need for viscous lidocaine to be stocked in aa5 ER pyxis, spoke to Danny from pharmacy. . 08:00 Reassessment: Awaiting viscous lidocaine for GI cocktail administration. . aa5 08:20 Reassessment: Dr. Rogers at bedside. . aa5 08:30 Reassessment: Patient is alert, oriented x 3, equal unlabored respirations, skin aa5 warm/dry/pink. Awaiting hospitalist, pt aware of wait time. . Vital Signs: 04:27 BP 196 / 100; Pulse 79; Resp 20; Temp 98.2; Pulse Ox 97% ; Weight 97.52 kg; Height 5 cg ft. 2 in. ; Pain 5/10; 05:00 BP 215 / 105; Pulse 68; Resp 22; Pulse Ox 98% on 2 lpm NC; pf1 05:30 BP 163 / 92; Pulse 65; Resp 22; Pulse Ox 99% on 2 lpm NC; pf1 05:50 BP 184 / 98; Pulse 64; Resp 28; Pulse Ox 97% ; vc1 06:58 BP 144 / 77; Pulse 62; Resp 18; Pulse Ox 95% ; vc1 07:00 BP 144 / 77; Pulse 77; Resp 18; Pulse Ox 100% ; vc1 04:27 Body Mass Index 39.32 (97.52 kg, 157.48 cm) cg 04:27 Pain Scale: Adult cg Vitals: 05:50 Cardiac Rhythm Assessment Regular Sinus rhythm. vc1 [place] Coma Score: 06:05 Eye Response: spontaneous(4). Motor Response: obeys commands(6). Verbal Response: sp4 oriented(5). Total: 15. ED Course: 03:55 Patient arrived in ED. jj6 04:03 Samuel Liz MD is Attending Physician. sp4 04:30 Triage completed. cg 04:30 Inserted saline lock: 22 gauge in left hand, using aseptic technique. pf1 05:28 Tiffany Matthew RN is Primary Nurse. vc1 05:29 Patient has correct armband on for positive identification. Bed in low position. Call vc1 light in reach. Side rails up X2. conveyor attendant on. Pulse ox on. NIBP on. 05:37 Report received from Ariel Estrella. vc1 05:51 Arm band placed on right wrist. vc1 05:59 No provider procedures requiring assistance completed. pf1 06:08 George Briceño MD is Referral Physician. sp4 06:35 XRAY Chest (1 view) In Process Unspecified. EDMS 06:43 Initial lab(s) drawn, by me, sent to lab. vc1 07:05 Attending Physician role handed off by Samuel Liz MD ec2 07:05 Karthik Rogers MD is Attending Physician. ec2 08:21 Riky Hickman MD is Hospitalizing Provider. ec2 Administered Medications: 04:49 Drug: Famotidine IVP 20 mg IVP once; dilute with 10 mL 0.9% NaCl; give over 2 minutes cg Route: IVP; Site: left hand; 05:40 Follow up: Response: No adverse reaction pf1 04:49 Drug: cloNIDine PO 0.2 mg PO once Route: PO; cg 05:40 Follow up: Response: No adverse reaction; Blood pressure is lowered pf1 04:50 Drug: Diazepam IVP 5 mg IVP once Route: IVP; Site: left hand; cg 05:40 Follow up: Response: No adverse reaction; Marked relief of symptoms pf1 04:50 Drug: diphenhydrAMINE IVP 25 mg IVP once Route: IVP; Site: left hand; cg 05:40 Follow up: Response: No adverse reaction; Marked relief of symptoms pf1 04:50 Drug: MethylPrednisoLONE IVP 125 mg IVP once Route: IVP; Site: left hand; cg 05:40 Follow up: Response: No adverse reaction; Marked relief of symptoms pf1 06:15 Drug: amLODIPine PO 10 mg PO once Route: PO; jw7 06:58 Follow up: BP 144 / 77; Pulse 62 bpm; Resp 18 bpm; Pulse Ox 95% vc1 06:58 CANCELLED (allergyy): aspirinchewable tablet 324 mg PO once; 81 mg tablets x 4 vc1 06:59 Drug: ProTONIX (pantoprazole) 40 mg IVP once Route: IVP; Site: left hand; vc1 06:59 Drug: Pepcid (famotidine) 20 mg IVP once; dilute with 10 mL 0.9% NaCl; give over 2 vc1 minutes Route: IVP; Site: left hand; 08:30 Drug: GI Cocktail without - (Maalox PO 30 ml, Lidocaine Mucous Membrane 2 % 15 aa5 ml) PO once Route: PO; Medication: 05:30 VIS not applicable for this client. vc1 Outcome: 06:09 Discharge ordered by . sp4 08:21 Decision to Hospitalize by Provider. ec2 14:13 Patient left the ED. aa5 Signatures: Dispatcher [employer] Hannah Randle RN RN aa5 Leyda Lynn RN RN Catalina Díaz6 Tiffany Matthew RN RN vc1 Maureen Hill RN RN jw7 Lizzeth Kirkpatrick RN RN pf1 Samuel Liz MD MD sp4 Karthik Rogers MD MD ec2
--- NOTE | 2024-01-08 06:10 | EDPHYS ---
Physician Documentation [facility] Name: Alda Paz Age: 58 yrs Sex: Female : 1965 Arrival Date: 01/08/2024 Time: 03:52 Bed 8 Private MD: ED Physician Karthik Rogers HPI: 01/07 04:03 This 58 yrs old Female presents to ER via Unassigned with complaints of sp4 Swollen Glands, Rash. 06:05 58-year-old female presents complaining that allergic hives to the face and posterior sp4 neck. Patient acutely anxious on exam bordering on a panic attack. Hypertensive on arrival. Historical: - Allergies: 05:29 Aspirin; vc1 - PMHx: 05:29 Hypertension; vc1 - PSHx: 05:29 R shoulder SX; Tonsillectomy; vc1 - Immunization history:: Flu vaccine status is unknown. - Social history:: Smoking status: Patient denies any tobacco usage or history of. - Family history:: not pertinent. ROS: 06:05 Constitutional: Negative for fever, chills, and weight loss, positive anxiety, positive sp4 hives 06:05 All other systems are negative, Exam: 06:05 Constitutional: This is a well developed, well nourished patient who is awake, alert, sp4 positive moderate distress positive anxiety Head/Face: Normocephalic, allergic hives to the forehead and posterior neck Eyes: Pupils equal round and reactive to light, extra-ocular motions intact. Lids and lashes normal. Conjunctiva and sclera are not injected. Cornea within normal limits. Periorbital areas with no swelling, redness, or edema. ENT: Nares patent. No nasal discharge, no septal abnormalities noted. Tympanic membranes are normal and external auditory canals are clear. Oropharynx with no redness, swelling, or masses, exudates, or evidence of obstruction, uvula midline. Mucous membranes moist. Neck: Trachea midline, no thyromegaly or masses palpated, and no cervical lymphadenopathy. Supple, full range of motion without nuchal rigidity, or vertebral point tenderness. Chest/axilla: Normal chest wall appearance and motion. Nontender with no deformity. No lesions are appreciated. Cardiovascular: Regular rate and rhythm with a normal S1 and S2. No gallops, murmurs, or rubs. Normal PMI, no JVD. No pulse deficits. Respiratory: Lungs have equal breath sounds bilaterally, clear to auscultation and percussion. No rales, rhonchi or wheezes noted. No increased work of breathing, no retractions or nasal flaring. Abdomen/GI: Soft, with normal bowel sounds. No distension or tympany. No guarding or rebound. No evidence of tenderness throughout. Back: No spinal tenderness. No costovertebral tenderness. Skin: Warm, dry with normal turgor. Normal color with several islets of allergic hives to the forehead right amish also posterior neck MS/ Extremity: Pulses equal, no cyanosis. Neurovascular intact. Full, normal range of motion. Neuro: Awake and alert, GCS 15, oriented to person, place, time, and situation. Cranial nerves II-XII grossly intact. Motor strength 5/5 in all extremities. Sensory grossly intact. Psych: Awake, alert, with orientation to person, place and time. Behavior -moderate anxiety attack close to the panic attack 06:58 ECG was reviewed by the Attending Physician. 05:44 Normal EKG sp4 Vital Signs: 04:27 BP 196 / 100; Pulse 79; Resp 20; Temp 98.2; Pulse Ox 97% ; Weight 97.52 kg; Height 5 cg ft. 2 in. ; Pain 5/10; 05:00 BP 215 / 105; Pulse 68; Resp 22; Pulse Ox 98% on 2 lpm NC; pf1 05:30 BP 163 / 92; Pulse 65; Resp 22; Pulse Ox 99% on 2 lpm NC; pf1 05:50 BP 184 / 98; Pulse 64; Resp 28; Pulse Ox 97% ; vc1 06:58 BP 144 / 77; Pulse 62; Resp 18; Pulse Ox 95% ; vc1 07:00 BP 144 / 77; Pulse 77; Resp 18; Pulse Ox 100% ; vc1 04:27 Body Mass Index 39.32 (97.52 kg, 157.48 cm) cg 04:27 Pain Scale: Adult cg [place] Coma Score: 06:05 Eye Response: spontaneous(4). Motor Response: obeys commands(6). Verbal Response: sp4 oriented(5). Total: 15. MDM: 04:09 Patient medically screened. sp4 06:05 Differential diagnosis: impetigo, varicella, allergic reaction, parasite infection. sp4 Data reviewed: vital signs, nurses notes. ED course: Patient anxiety has markedly improved after IV Valium. Patient states she was taken off lisinopril secondary to it possibly causing her allergic hives. Will prescribe amlodipine 10 mg p.o. daily and will request follow-up with Dr. Briceño for further blood pressure management. 07:00 Consideration of Admission/Observation Escalation of care including sp4 admission/observation considered. ED course: Dr. Briceño states he is out of town. Requested admission to hospitalist. . 07:05 Transition of care: After a detail discussion of the patient's case, care is sp4 transferred to Karthik Rogers MD. 07:07 ED course: Patient signed out to me by previous physician, in brief patient is a ec2 morbidly obese individual who arrives today with anxiety headache, chest pain. Plan is to follow-up lab work and admit. Patient follows with Dr. Briceño, plan to admit to hospitalist given Dr. Briceño is unavailable.. 08:20 ED course: Troponin within normal ranges, metabolic profile, will admit for cardiac ec2 evaluation. . 01/07 06:20 Order name: Basic Metabolic Panel; Complete Time: 08:27 sp4 01/07 06:20 Order name: CBC with Diff; Complete Time: 07:31 sp4 01/07 06:20 Order name: LFT's; Complete Time: 08:27 sp4 01/07 06:20 Order name: Magnesium; Complete Time: 08:27 sp4 01/07 06:20 Order name: NT PRO-BNP; Complete Time: 08:27 sp4 01/07 06:20 Order name: PT-INR; Complete Time: 07:31 sp4 01/07 06:20 Order name: Troponin HS; Complete Time: 08:27 sp4 01/07 09:05 Order name: D-Dimer EDMS 01/07 09:28 Order name: CBC with Automated Diff EDMS 01/07 09:28 Order name: CBC with Automated Diff EDMS 01/07 09:28 Order name: CBC with Automated Diff EDMS 01/07 09:28 Order name: Comprehensive Metabolic Panel EDTX 01/07 09:28 Order name: Comprehensive Metabolic Panel EDTX 01/07 09:28 Order name: Comprehensive Metabolic Panel EDTX 01/07 09:28 Order name: Lipid Profile EDMS 01/07 09:28 Order name: Lipid Profile EDTX 01/07 09:28 Order name: Magnesium EDTX 01/07 09:28 Order name: Magnesium EDTX 01/07 09:28 Order name: Magnesium EDTX 01/07 09:28 Order name: Troponin High Sensitivity EDTX 01/07 09:28 Order name: Troponin High Sensitivity EDTX 01/07 09:28 Order name: Troponin High Sensitivity EDTX 01/07 09:28 Order name: T4 Free EDTX 01/07 09:28 Order name: Thyroid Stimulating Hormone EDTX 01/07 06:20 Order name: XRAY Chest (1 view) sp4 01/07 09:06 Order name: Echo with Doppler EDTX 01/07 10:01 Order name: Chest Wo Con CT: chest pain, dyspnea, poor quality cxr la1 01/07 10:35 Order name: CT EDTX 01/07 06:20 Order name: EKG; Complete Time: 06:21 sp4 01/07 06:20 Order name: Cardiac monitoring; Complete Time: 06:35 sp4 01/07 06:20 Order name: EKG - Nurse/Tech; Complete Time: 06:58 sp4 01/07 06:20 Order name: IV Saline Lock; Complete Time: 06:35 sp4 01/07 06:20 Order name: Labs collected and sent; Complete Time: 06:43 sp4 01/07 06:20 Order name: O2 Per Protocol; Complete Time: 06:35 sp4 01/07 06:20 Order name: O2 Sat Monitoring; Complete Time: 06:35 sp4 EC:58 Rate is 60 beats/min. Rhythm is regular, Normal Sinus Rhythm. QRS [place] is Normal. [place] sp4 interval is normal. QRS interval is normal. QT interval is normal. No Q waves. T waves are Normal. No ST changes noted. Clinical impression: No evidence of ischemia. Interpreted by me. Reviewed by me. Administered Medications: 04:49 Drug: Famotidine IVP 20 mg IVP once; dilute with 10 mL 0.9% NaCl; give over 2 minutes cg Route: IVP; Site: left hand; 05:40 Follow up: Response: No adverse reaction pf1 04:49 Drug: cloNIDine PO 0.2 mg PO once Route: PO; cg 05:40 Follow up: Response: No adverse reaction; Blood pressure is lowered pf1 04:50 Drug: Diazepam IVP 5 mg IVP once Route: IVP; Site: left hand; cg 05:40 Follow up: Response: No adverse reaction; Marked relief of symptoms pf1 04:50 Drug: diphenhydrAMINE IVP 25 mg IVP once Route: IVP; Site: left hand; cg 05:40 Follow up: Response: No adverse reaction; Marked relief of symptoms pf1 04:50 Drug: MethylPrednisoLONE IVP 125 mg IVP once Route: IVP; Site: left hand; cg 05:40 Follow up: Response: No adverse reaction; Marked relief of symptoms pf1 06:15 Drug: amLODIPine PO 10 mg PO once Route: PO; jw7 06:58 Follow up: BP 144 / 77; Pulse 62 bpm; Resp 18 bpm; Pulse Ox 95% vc1 06:58 CANCELLED (allergyy): aspirinchewable tablet 324 mg PO once; 81 mg tablets x 4 vc1 06:59 Drug: ProTONIX (pantoprazole) 40 mg IVP once Route: IVP; Site: left hand; vc1 06:59 Drug: Pepcid (famotidine) 20 mg IVP once; dilute with 10 mL 0.9% NaCl; give over 2 vc1 minutes Route: IVP; Site: left hand; 08:30 Drug: GI Cocktail without - (Maalox PO 30 ml, Lidocaine Mucous Membrane 2 % 15 aa5 ml) PO once Route: PO; Disposition Summary: 01/08/24 08:21 Hospitalization Ordered Notes: Hospitalization Status: Inpatient Admission ec2 Provider: Riky Hickman ec2 Condition: Stable(01/08/24 08:21) ec2 Problem: an ongoing problem(01/08/24 08:21) ec2 Symptoms: have improved(01/08/24 08:21) ec2 Bed/Room Type: Standard ec2 Location: Telemetry/MedSurg (Inpatient)(01/08/24 11:42) 5 Room Assignment: [facility](01/08/24 12:40) [facility] [place] Diagnosis - Chest pain, unspecified ec2 Forms: - Medication Reconciliation Form ec2 - SBAR form ec2 - Leadership Thank You Letter ec2 Signatures: Dispatcher [employer] EDHannah Marion RN RN aa5 Leyda Lynn RN RN cg Tiffany Matthew RN RN vc1 Maureen Hill RN RN jw7 Samuel Liz MD MD sp4 Jayla Antoine RN RN nj1 Laure Gibson 5 Karthik Rogers MD MD ec2 Lizzeth Kirkpatrick RN pf1 Corrections: (The following items were deleted from the chart) 06:34 06:09 Home sp4 jw7 06:34 06:09 new sp4 7 06:34 06:09 have improved sp4 jw7 06:34 06:09 Stable sp4 jw7 06:34 06:09 Acute allergic reaction with hives, acute anxiety attack, hypertensive emergency jw7 sp4 06:58 06:20 Aspirin PO Chewable Tablet 324 mg PO once; 81 mg tablets x 4 ordered. sp4 vc1 09:48 08:21 Telemetry/MedSurg (observation) ec2 nj1 09:48 08:21 ec2 nj1 11:42 09:48 [facility] ER HOLD nj1 mc5 11:42 09:48 ERHOLD- nj1 mc5 12:36 11:42 415 mc5 mc5 12:40 12:36 mc5 mc5
[2024-01-08] MEDS ORDERED: MAGNES/ALUMIN/SIMET 30ML UCUP ONE (06:45)
[2024-01-08] MEDS ORDERED: PANTOPRAZOLE 40 MG INJ ONE (06:46)
[2024-01-08] MEDS ORDERED: NA CHLORIDE 0.9% 50 ML ONE (06:46)
[2024-01-08] MEDS ORDERED: ASPIRIN 81 MG CHEWABLE TABLET ONE (06:46)
[2024-01-08 07:00] LABS: Absolute Basophils 0.1 K/uL (0-0.5); Absolute Eosinophils 0.1 K/uL (0-0.5); Absolute Monocytes 0.3 K/uL (0.1-1.3); Absolute Neutrophil 7.7 K/uL (1.8-8.0); Basophils % 0.6 % (0-1.3); Eosinophils % 1.4 % (0-4.4); Hematocrit 43.3 % (36.0-45.0); Hemoglobin 14.4 g/dL (12.0-15.0); Lymphocytes % 11.2 % (15.3-44.8); MCH 27.8 pg (27.0-35.0); MCHC 33.2 g/dL (32.0-36.0); MCV 83.7 fL (80-100); MPV 6.8 fL (7.6-11.3); Monocytes % 3.8 % (3.3-12.3); Platelets 249 thou/uL (152-406); RBC Red Blood Cell Count 5.17 M/uL (3.86-4.86); Red Cell Distribution Width 13.6 % (12.1-15.2)
[2024-01-08 07:09] LABS: PT Prothrombin Time 12.3 SECONDS (9.5-12.5); Protime INR 1.12
[2024-01-08 08:19] LABS: Albumin 3.2 g/dL (3.4-5.0); Albumin/Globulin Ratio 0.8 (1.1-1.8); Anion Gap 8.5 mEq/L (5.0-15.0); Bilirubin Total 0.9 mg/dL (0.2-1.0); Globulin 3.8 g/dL (2.3-3.5); Magnesium 2.4 mg/dL (1.6-2.4); Potassium 3.5 mEq/L (3.5-5.1); Troponin High Sensitivity 26.9 pg/mL (<58.9)
[2024-01-08 08:25] LABS: Bilirubin Direct 0.2 mg/dL (0-0.2); Bilirubin Indirect, Calculated 0.7 mg/dL (0.2-0.8)
[2024-01-08] MEDS ORDERED: LIDOCAINE VISCOUS 2% 10ML ORAL SOLN ONE (08:26)
[2024-01-08] MEDS ORDERED: MORPHINE 2 MG/ML SYR IV PRN (09:25)
[2024-01-08] MEDS ORDERED: HYDRALAZINE HCL 20 MG/ML VIAL IV PRN (09:25)
[2024-01-08] MEDS ORDERED: ALPRAZOLAM 0.25 MG TABLET PO PRN (09:25)
[2024-01-08] MEDS ORDERED: ONDANSETRON 4 MG/2 ML VIAL IV PRN (09:25)
[2024-01-08 10:11] VITALS: BMI 39.3
[2024-01-08 10:14] LABS: Thyroid Stimulating Hormone 0.564 uIU/mL (0.358-3.740); Troponin High Sensitivity 26.6 pg/mL (<58.9)
--- NOTE | 2024-01-08 10:35 | RAD REPORT ---
EXAM DESCRIPTION: CT - Thorax Wo Con - 01/08/2024 10:20 am CLINICAL HISTORY: Chest pain COMPARISON: none TECHNIQUE: Computed axial tomography of the chest was obtained. Contrast was not requested. All CT scans are performed using dose optimization technique as appropriate and may include automated exposure control or mA/KV adjustment according to patient size. FINDINGS: The evaluation of mediastinum, shawanda and vessels is limited secondary to lack of IV contras t administration. Part sub solid nodule 8 millimeters right upper lobe Left lung is clear No mediastinal or hilar lymphadenopathy is seen. A pleural effusion is not present. A pericardial effusion IMPRESSION: Part sub solid nodule 8 millimeters right upper lobe. Per Fleischner recommendation a [facility] CT chest 3-6 months recommended
--- NOTE | 2024-01-08 13:16 | P.HP ---
Certification for Inpatient Patient admitted to: Observation With expected LOS: <2 Midnights Patient will require the following post-hospital care: None Practitioner: I am a practitioner with admitting privileges, knowledge of patient current condition, hospital course, and medical plan of care. Services: Services provided to patient in accordance with Admission requirements found in Title 42 Section 412.3 of the Code of Federal Regulations Patient History Date of Service: 01/08/24 Primary Care Provider: Dr. Briceño (out of [facility]) History of Present Illness: 58-year-old female with history of hypertension presents emergency department with chief complaint of chest pain, anxiety, shortness of breath. Patient was evaluated in the emergency department and her labs were significant for initial high-sensitivity troponin of 26.9, glucose 168 D-dimer 388 chest x-ray with poor inspiratory effort CT chest subsequently performed which showed right upper lobe 8 mm pulmonary nodule recommend follow-up CT in 3 to 6 months. EKG without STEMI criteria. ED provider wishes to admit patient under observation for ACS rule out. Allergies aspirin Allergy (Intermediate, Verified 09/04/12 22:25) Rash Home Medications: Lisinopril [Zestril] 10 mg PO DAILY 01/08/24 - Past Medical/Surgical History Has patient received pneumonia vaccine in the past: No Diabetic: No -: HTN -: Left shoulder 2014 -: Tonsillectomy Psychosocial/ Personal History: Lives at home with - Family History Family History: Reviewed- Non-Contributory - Social History Smoking Status: Never smoker Alcohol use: Yes CD- Drugs: No Caffeine use: Yes Place of Residence: Home Review of Systems 10-point ROS is otherwise unremarkable Respiratory: Shortness of Breath Cardiovascular: Chest Pain Physical Examination - Vital Signs Temperature: 97.8 F Blood Pressure: 146/94 Pulse: 82 Respirations: 18 Pulse Ox (%): 98 - Physical Exam General: Alert, In no apparent distress, Oriented x3 HEENT: Atraumatic, PERRLA, EOMI Neck: Supple, 2+ carotid pulse no bruit, No LAD Respiratory: Clear to auscultation bilaterally, Normal air movement Cardiovascular: Regular rate/rhythm, Normal S1 S2 Gastrointestinal: Normal bowel sounds, No tenderness Musculoskeletal: No tenderness Integumentary: No rashes Neurological: Normal speech, Normal strength at 5/5 x4 extr, Normal tone - Studies Laboratory Data (last 24 hrs) 01/08/24 01/08/24 01/08/24 06:40 06:40 06:40 WBC 9.20 Hgb 14.4 Hct 43.3 Plt Count 249 PT 12.3 INR 1.12 Sodium 139 Potassium 3.5 BUN 19 H Creatinine 0.74 Glucose 168 H Magnesium 2.4 Total Bilirubin 0.9 AST 20 ALT 38 Alkaline Phosphatase 81 Assessment and Plan - Plan Assessment: Chest pain rule out ACS Hypertension Incidental finding 8 mm right upper lobe nodule Plan: Chest pain rule out ACS Troponin negative x 2, continue to trend EKG negative for STEMI criteria CT chest without acute findings aside from incidental lung nodule Given Protonix, GI cocktail, Pepcid without significant treatment Was recently taken off of lisinopril because of dry cough, feeling of swelling in the throat Switched to amlodipine 10 mg today Patient appears very anxious, does report some difficulty when swallowing chips, feels like a "get caught" Discussed need for GI evaluation outpatient Hypertension Continue amlodipine 10 mg daily Incidental finding 8 mm right upper lobe nodule Discussed with patient importance of follow-up CT in 3 to 6 months DVT PPX:Lovenox Code status:Full Discharge Plan: Home Plan to discharge in: 24 Hours - Advance Directives Does patient have a Living Will: No Does patient have a Durable POA for Healthcare: No - Code Status/Comfort Care Code Status Assessed: Yes (Full code) Critical Care: No Time Spent Managing Pts Care (In Minutes): 70
[2024-01-08 14:36] VITALS: O2SAT 100
[2024-01-08] MEDS: ACETAMINOPHEN 325 MG TABLET PO PRN (16:57)
--- NOTE | 2024-01-08 17:20 | EKG ---
Test Date: 2024-01-08 Test Time: 05:44:01 [employer]: JORDON MEASUREMENT RESULTS: Intervals: Rate: 60 TX: 156 QRSD: 80 QT: 484 QTc: 484 [place]: P: 13 TX: 156 QRS: -4 T: 130 INTERPRETIVE STATEMENTS: Normal sinus rhythm ST & T wave abnormality, consider lateral ischemia Abnormal ECG No previous ECG available for comparison Electronically Signed On 01-08-24 17:19:46 CDT by Oswaldo Spence
[2024-01-08] MEDS: ATORVASTATIN 40 MG TAB PO SCH (20:48)
--- NOTE | 2024-01-08 20:54 | CON ---
Date of Consultation: 01/08/2024 Reason For Consultation: Chest pain. History Of Present Illness: A 58-year-old female, history of hypertension, presented to the emergenc y room with chest pain and shortness of breath on exertion. Chest pain is retrosternal, no radiation , not related to activity, but she has shortness of breath on exertion that has been progressive. No lower extremity edema. No nausea, vomiting, or diarrhea. She does not have any history of coronary artery disease. At the present time, she is chest pain free. Past Medical History: Hypertension. Past Surgical History: Shoulder surgery and tonsillectomy. Medications: Refer reconciliation sheet for detailed list. Medications are reviewed. Allergies: ASPIRIN. Family History: No premature coronary artery disease or cancer. Social History: She does not smoke or drink. Does not use any drugs. Review of Systems: All systems reviewed are negative except mentioned in HPI. Physical Examination: Vital signs: Reviewed. Head and Neck: Pupils are equal, reactive to light. Intact eye movements. No JVD. No cervical lym phadenopathy. Neck is supple. Thyroid is not enlarged. Lungs: Clear to auscultation bilaterally. No rhonchi, wheezing, or crackles. No accessory muscle u se. Heart: Regular rate and rhythm. No extra sounds. Abdomen: Soft, nontender. Bowel sounds positive. No organomegaly. No masses or hernia. No rigidi ty or rebound. Extremities: No edema, clubbing, cyanosis. Intact pulses. Skin: No rashes. Neurologic: Alert, awake, oriented x3. No acute focal deficits appreciated. Investigations: Troponins are negative. BUN 19, creatinine 0.74. Hemoglobin is 14.4. Assessment/recommendation: 1.Chest pain. It is atypical. Cardiac enzymes are negative and she is chest pain free now. She ca n be released from Cardiology standpoint to follow up with me in the office next week and plan for ou tpatient exercise stress test. 2.Dyslipidemia, on Lipitor 40 mg, to be continued. 3.Hypertension and her blood pressure is borderline elevated. Recommend to add losartan 25 mg daily and adjust it further as needed. SR/MODL Voice ID: [id number] Report ID: [id number]
[2024-01-09 07:24] LABS: Absolute Lymphocytes (CBC) 2.3 K/uL (0.7-4.9); Absolute Monocytes 0.9 K/uL (0.1-1.3); Absolute Neutrophil 10.2 K/uL (1.8-8.0); Basophils % 0.3 % (0-1.3); Eosinophils % 0.3 % (0-4.4); Hematocrit 42.3 % (36.0-45.0); Hemoglobin 14.2 g/dL (12.0-15.0); Lymphocytes % 17.1 % (15.3-44.8); MCHC 33.6 g/dL (32.0-36.0); MCV 83.4 fL (80-100); MPV 7.1 fL (7.6-11.3); Monocytes % 6.7 % (3.3-12.3); Neutrophils % 75.6 % (41.7-73.7); Nucleated Red Blood Cells % 0.3 % (0-0); Platelets 277 thou/uL (152-406); RBC Red Blood Cell Count 5.07 M/uL (3.86-4.86); Red Cell Distribution Width 13.5 % (12.1-15.2)
[2024-01-09 07:42] LABS: Albumin/Globulin Ratio 0.8 (1.1-1.8); Anion Gap 12.5 mEq/L (5.0-15.0); Bilirubin Total 0.6 mg/dL (0.2-1.0); Globulin 3.8 g/dL (2.3-3.5); Magnesium 2.3 mg/dL (1.6-2.4); Potassium 3.5 mEq/L (3.5-5.1); Protein, Total 6.8 g/dL (6.4-8.2)
[2024-01-09] MEDS: ENOXAPARIN 40 MG/0.4 ML SQ SCH (08:33)
[2024-01-09] MEDS: LOSARTAN POTASSIUM 50 MG TABLET PO SCH (08:34)
[2024-01-09 08:37] VITALS: BP 162/76; TEMP 97.1
[2024-01-09] MEDS ORDERED: ASPIRIN EC 81 MG TAB PO SCH (09:00)
[2024-01-09] MEDS: POTASSIUM CL SA 10 MEQ TAB PO ONE (09:37)
--- NOTE | 2024-01-09 11:16 | P.DS ---
Admission Date: 01/08/24 Discharge Date: 01/09/24 Primary Care Provider: Dr. Briceño (out of town) Disposition: ROUTINE DISCHARGE Discharge Condition: GOOD Consultations: Dr. Spence with cardiology Brief History of Present Illness: 58-year-old female with history of hypertension presents emergency department with chief complaint of chest pain, anxiety, shortness of breath. Patient was evaluated in the emergency department and her labs were significant for initial high-sensitivity troponin of 26.9, glucose 168 D-dimer 388 chest x-ray with poor inspiratory effort CT chest subsequently performed which showed right upper lobe 8 mm pulmonary nodule recommend follow-up CT in 3 to 6 months. EKG without STEMI criteria. ED provider wishes to admit patient under observation for ACS rule out. Hospital Course: Patient presented to the emergency department with concern of rash, chest pain, shortness of breath. Her evaluation during hospitalization included trending of cardiac enzymes which were negative/trended flat, D-dimer was negative, she was seen by cardiology who recommended outpatient stress test for further valuation. CT chest was also performed which was negative for acute findings but did mention a right upper lobe 8 mm nodule with recommendation for repeat CT in 3 to 6 months. Patient reported that she has been dealing with a urticarial rash typically only from her neck up coming and going for the past 2 weeks which she had been seen at multiple facilities for. She had been on an antibioticclindamycin and steroidprednisone but she is unclear about how long she took each 1. We discussed taking a daily Pepcid for at least 1 month that she was also having some GI symptoms given antihistamine properties of Pepcid in addition to as needed Benadryl or hydroxyzine for itching. Also discussed keeping a journal to try to narrow down the possible causes of the urticaria/hives. She was on lisinopril which she stopped about a week ago as she was having a bit of a dry cough and it was considered it may be contributing to the hives, blood pressure was very elevated upon arrival to the emergency department. She will be sent new prescriptions for amlodipine, losartan for blood pressure. Home medications Continue as previously prescribed with the addition of the following medications: Losartan 25 mg by mouth daily Amlodipine 10 mg by mouth daily Please also take a daily [id number] Pepcid for 1 month Follow-up with your primary care doctorDr. Navarro in 1 to 2 weeks Please also follow-up with Dr. Spence with cardiology in 1 to 2 weeks to schedule outpatient stress test If you continue to have reflux symptoms or have worsening in this regard please follow-up with a GI doctor Assessment: Chest pain rule out ACS Hypertension Incidental finding 8 mm right upper lobe nodule Vital Signs/Physical Exam: Temp Pulse Resp BP Pulse Ox 97.1 F 60 17 162/76 H 95 01/09/24 08:00 01/09/24 08:00 01/09/24 08:00 01/09/24 08:00 01/09/24 08:00 General: Alert, In no apparent distress, Oriented x3 HEENT: Atraumatic, PERRLA Neck: Supple, JVD not distended Respiratory: Clear to auscultation bilaterally, Normal air movement Cardiovascular: Regular rate/rhythm, Normal S1 S2 Gastrointestinal: Normal bowel sounds, No tenderness Musculoskeletal: No tenderness Integumentary: No rashes Neurological: Normal speech, Normal tone, Normal affect Laboratory Data at Discharge: WBC 13.40 thou/uL (4.3-10.9) H 01/09/24 06:16 Hgb 14.2 g/dL (12.0-15.0) 01/09/24 06:16 Hct 42.3 % (36.0-45.0) 01/09/24 06:16 Plt Count 277 thou/uL (152-406) 01/09/24 06:16 PT 12.3 SECONDS (9.5-12.5) 01/08/24 06:40 INR 1.12 01/08/24 06:40 Sodium 143 mEq/L (136-145) 01/09/24 06:16 Potassium 3.5 mEq/L (3.5-5.1) 01/09/24 06:16 BUN 25 mg/dL (7-18) H 01/09/24 06:16 Creatinine 0.80 mg/dL (0.55-1.02) 01/09/24 06:16 Glucose 127 mg/dL (74-106) H 01/09/24 06:16 Magnesium 2.3 mg/dL (1.6-2.4) 01/09/24 06:16 Total Bilirubin 0.6 mg/dL (0.2-1.0) 01/09/24 06:16 AST 10 U/L (15-37) L 01/09/24 06:16 ALT 30 U/L (13-56) 01/09/24 06:16 Alkaline Phosphatase 84 U/L (45-117) 01/09/24 06:16 Triglycerides 88 mg/dL (<150) 01/08/24 09:40 Cholesterol 165 mg/dL (<200) 01/08/24 09:40 HDL Cholesterol 53 mg/dL (40-60) 01/08/24 09:40 Cholesterol/HDL Ratio 3.11 01/08/24 09:40 Lipase 50 U/L (13-75) 01/08/24 15:43 Home Medications: Amlodipine [Norvasc*] 10 mg PO DAILY #30 tab 01/09/24 Losartan Potassium 25 mg PO DAILY #30 tab 01/09/24 New Medications: Losartan Potassium 25 mg PO DAILY #30 tab Amlodipine [Norvasc*] 10 mg PO DAILY #30 tab Physician Discharge Instructions: Patient presented to the emergency department with concern of rash, chest pain, shortness of breath. Her evaluation during hospitalization included trending of cardiac enzymes which were negative/trended flat, D-dimer was negative, she was seen by cardiology who recommended outpatient stress test for further valuation. CT chest was also performed which was negative for acute findings but did mention a right upper lobe 8 mm nodule with recommendation for repeat CT in 3 to 6 months. Patient reported that she has been dealing with a urticarial rash typically only from her neck up coming and going for the past 2 weeks which she had been seen at multiple facilities for. She had been on an antibioticclindamycin and steroidprednisone but she is unclear about how long she took each 1. We discussed taking a daily Pepcid for at least 1 month that she was also having some GI symptoms given antihistamine properties of Pepcid in addition to as needed Benadryl or hydroxyzine for itching. Also discussed keeping a journal to try to narrow down the possible causes of the urticaria/hives. She was on lisinopril which she stopped about a week ago as she was having a bit of a dry cough and it was considered it may be contributing to the hives, blood pressure was very elevated upon arrival to the emergency department. She will be sent new prescriptions for amlodipine, losartan for blood pressure. Home medications Continue as previously prescribed with the addition of the following medications: Losartan 25 mg by mouth daily Amlodipine 10 mg by mouth daily Please also take a daily [id number] Pepcid for 1 month Follow-up with your primary care doctorDr. Briceño in 1 to 2 weeks Please also follow-up with Dr. Spence with cardiology in 1 to 2 weeks to schedule outpatient stress test If you continue to have reflux symptoms or have worsening in this regard please follow-up with a GI doctor Diet: AHA Activity: Ad reginaldo Followup: George Briceño MD [Primary Care Provider] - 1-2 Weeks Oswaldo Spence MD [ACTIVE - CAN ADMIT] - 1-2 Weeks Time spent managing pt's care (in minutes): 30
--- NOTE | 2024-01-09 12:47 | RAD REPORT ---
EXAM DESCRIPTION: RAD - Chest Single View - 01/08/2024 6:33 am CLINICAL HISTORY: CHEST PAIN COMPARISON: None FINDINGS: Elevation right hemidiaphragm with low lung volumes and pulmonary vascular crowding. No co nsolidation, effusion or pneumothorax. The heart is prominent although likely accentuated by apical l ordotic technique. IMPRESSION: Hypoaeration. RECOMMENDATIONS: Electronically signed by: Alex Trevino MD 01/08/2024 08:04 AM CDT Due to temporary technical issues with the PACS/Fluency reporting system, reports are being signed by the in house radiologists without review as a courtesy to insure prompt reporting. The interpreting radiologist is fully responsible for the content of the report.
== END 2024-01-09 10:07 | disposition home or self-care (01) ==
LOC: ER 03:52 → ERHOLD 09:04 → 2ND 13:34
PROVIDERS: ADMIT Hospitalist; ATTEND Hospitalist
DX: R07.9 Chest pain, unspecified (principal); F41.9 Anxiety disorder, unspecified; R06.02 Shortness of breath; R79.89 Other specified abnormal findings of blood chemistry; R91.1 Solitary pulmonary nodule; I10 Essential (primary) hypertension; R21 Rash and other nonspecific skin eruption; Z88.6 Allergy status to analgesic agent
CPT/HCPCS: 93005; 85025 ×2; 80048; 36415 ×2; 83735 ×2; 85610; 80061; 82947; 85379; 80076; 84443; 84484 ×3; 84439; 83690; 80053; 83880; 71250; 71045; 96375; 96374; 99285; J1200; C9113; J1650; J3360; J2930; G0378

== ENCOUNTER → 2024-01-11 | Emergency (ER) | payer OTHER ==
[~2024-01-11] MED LIST changes: +DIPHENHYDRAMINE 25 MG TAB/CAP ONE; -DIPHENHYDRAMINE 50 MG/ML VIAL ONE; +FAMOTIDINE 20 MG TAB ONE; -FAMOTIDINE 20 MG/2 ML VIAL IV ONE; -LORazepam 2 MG/ML VIAL ONE; -METHYLPREDNISOLONE 125 MG INJ ONE; +predniSONE 20 MG TAB ONE
--- OUTSIDE RECORDS SUMMARY | 2024-01-11 07:06 | XMS REPORT | Continuity of Care Document ---
Author Name Unknown Address [address] [facility]. [address] [place] [address] [facility] Address [address] [facility] [address] [place] [address] Care Team Providers Care Process Supervisor Name Role Phone Lab, Adc Fam Pob I Attending Clinician Unavailab Lois Coleman Attending Clinician Doctor Unassigned, [place] Attending Clinician U Nini Reeves MD Attending Clinician [phone] Joselin Serna Attending Clinician RADIOLOGY Attending Clinician Unavailable Samson García DO Attending Clinician [phone] Payers Payer Name Policy Type Policy Number Effective Date Expirati on Date Source [facility] CLAIMS [id number] 2019 00:00:00 Problems Condition Name Condition Details Condition Category Status Onset Date Resolution Date Last Treatment Date Treating Clinician Comments Source No known active problems No known active problems Disease [facility] Allergies, Adverse Reactions, Alerts Allergy Name Allergy Type Status Severity Reaction(s) Onset Date Inactive Date Treating Clinician Comments Source ASPIRIN DRUG INGREDI Active Hives 05-10 00:00: 00 [facility] Aspirin Propensi ty to adverse reaction s Active Hives 05-10 00:00: 00 Able to take ibuprofen and naproxen without reaction [facility] Social History Social Habit Start Date Stop Date Quantity Comments Source Exposure to SARS-CoV-2 (event) Not sure [facility] Sex Assigned At 1965 00:00:00 1965 00:00:00 [facility] Smoking Status Start Date Stop Date Source Unknown if ever smoked [facility] Medications Ordered Medication Name Filled Medication Name Start Date Stop Date Current Medication? Ordering Clinician Indication Dosage Frequency Signature (SIG) Comments Components Source ondansetron (ZOFRAN (PF)) injection 4 mg 05-19 19:45: 00 05-19 18:39 :00 No 4mg 4 mg, Slow IV Push, ONCE, 1 dose, [place] 05/19/21 at 1445, [facility] morpHINE injection 2 mg 05-19 19:45: 00 05-19 18:39 :00 No 2mg 2 mg, Slow IV Push, ONCE, 1 dose, [place] 05/19/21 at 1445, STAT [facility] iopamidol (ISOVUE 370-500 mL) injection 120 mL 05-19 17:53: 00 05-19 17:50 :00 No [id number] 120mL 120 mL, Intravenou s, ONCE, 1 dose, [place] 05/19/21 at 1315, Routine [facility] HYDROcodone -acetaminop hen (NORCO 5) 5-325 mg tablet 1 tablet 05-19 17:15: 00 05-19 16:30 :00 No 1{tbl} 1 tablet, Oral, ONCE, 1 dose, [place] 05/19/21 at 1215, [facility] traMADoL 50 mg tablet 05-19 00:00: 00 05-25 04:59 :00 No [id number] 50mg Take 1 tablet by mouth every 6 (six) hours as needed for Pain (scale 7-10) for up to 5 days. Indication s: acute pain [facility] naproxen sodium (ANAPROX DS) 550 mg tablet 2019-10 00:00: 00 Yes [id number] 550mg Take 1 tablet by mouth 2 (two) times daily with meals. [facility] methylPREDN ISolone (MEDROL, EBER,) 4 mg tablets 2019-10 00:00: 00 Yes [id number] Take by mouth SEE-INSTRU CTIONS. follow package directions [facility] naproxen sodium (ANAPROX DS) 550 mg tablet 2019-10 00:00: 00 Yes [id number] 550mg Take 1 tablet by mouth 2 (two) times daily with meals. [facility] methylPREDN ISolone (MEDROL, EBER,) 4 mg tablets 2019-10 00:00: 00 Yes [id number] Take by mouth SEE-INSTRU CTIONS. follow package directions [facility] naproxen sodium (ANAPROX DS) 550 mg tablet 2019-10 00:00: 00 Yes [id number] 550mg Take 1 tablet by mouth 2 (two) times daily with meals. [facility] methylPREDN ISolone (MEDROL, EBER,) 4 mg tablets 2019-10 00:00: 00 Yes [id number] Take by mouth SEE-INSTRU CTIONS. follow package directions [facility] naproxen sodium (ANAPROX DS) 550 mg tablet 2019-10 00:00: 00 Yes [id number] 550mg Take 1 tablet by mouth 2 (two) times daily with meals. [facility] methylPREDN ISolone (MEDROL, EBER,) 4 mg tablets 2019-10 00:00: 00 Yes [id number] Take by mouth SEE-INSTRU CTIONS. follow package directions [facility] naproxen sodium (ANAPROX DS) 550 mg tablet 2019-10 00:00: 00 Yes [id number] 550mg Take 1 tablet by mouth 2 (two) times daily with meals. [facility] methylPREDN ISolone (MEDROL, EBER,) 4 mg tablets 2019-10 00:00: 00 Yes [id number] Take by mouth SEE-INSTRU CTIONS. follow package directions [facility] methocarbam oL 500 mg tablet 2019-10 00:00: 00 10-07 05:59 :00 No [id number] 500mg Take 1 tablet by mouth 3 (three) times daily for 5 days. [facility] ibuprofen 600 mg tablet 01-30 00:00: 00 Yes 600mg Take 1 tablet by mouth every 8 (eight) hours as needed (only use if Tylenol does not help). [facility] ibuprofen 600 mg tablet 01-30 00:00: 00 Yes 600mg Take 1 tablet by mouth every 8 (eight) hours as needed (only use if Tylenol does not help). [facility] ibuprofen 600 mg tablet 01-30 00:00: 00 Yes 600mg Take 1 tablet by mouth every 8 (eight) hours as needed (only use if Tylenol does not help). [facility] ibuprofen 600 mg tablet 01-30 00:00: 00 Yes 600mg Take 1 tablet by mouth every 8 (eight) hours as needed (only use if Tylenol does not help). [facility] ibuprofen 600 mg tablet 01-30 00:00: 00 Yes 600mg Take 1 tablet by mouth every 8 (eight) hours as needed (only use if Tylenol does not help). [facility] Vital Signs Vital Name Observation Time Observation Value Comments S rhiannajennifer Systolic blood pressure 2021-05-19 18:10:00 173 mm[Hg] [facility] Diastolic blood pressure 2021-05-19 18:10:00 92 mm[Hg] [facility] Heart rate 2021-05-19 18:10:00 59 /min [facility] Respiratory rate 2021-05-19 18:10:00 21 /min [facility] Oxygen saturation in Arterial blood by Pulse oximetry 2021-05-19 18:10:00 94 /min [facility] Body temperature 2021-05-19 16:32:34 36.5 [facility] Body height 2021-05-19 16:01:00 157.5 cm [facility] Body weight 2021-05-19 16:01:00 95.255 kg [facility] BMI 2021-05-19 16:01:00 38.41 kg/m2 [facility] Systolic blood pressure 2021-05-19 18:10:00 173 mm[Hg] [facility] Diastolic blood pressure 2021-05-19 18:10:00 92 mm[Hg] [facility] Heart rate 2021-05-19 18:10:00 59 /min [facility] Respiratory rate 2021-05-19 18:10:00 21 /min [facility] Oxygen saturation in Arterial blood by Pulse oximetry 2021-05-19 18:10:00 94 /min [facility] Body temperature 2021-05-19 16:32:34 36.5 [facility] Body height 2021-05-19 16:01:00 157.5 cm [facility] Body weight 2021-05-19 16:01:00 95.255 kg [facility] BMI 2021-05-19 16:01:00 38.41 kg/m2 [facility] Systolic blood pressure 2020-10-01 18:00:00 156 mm[Hg] [facility] Diastolic blood pressure 2020-10-01 18:00:00 77 mm[Hg] [facility] Heart rate 2020-10-01 18:00:00 54 /[facility] Respiratory rate 2020-10-01 18:00:00 11 /min [facility] Oxygen saturation in Arterial blood by Pulse oximetry 2020-10-01 18:00:00 100 /min [facility] Body temperature 2020-10-01 16:42:00 36.72 [facility] Body weight 2020-10-01 15:11:00 95.255 kg [facility] BMI 2020-10-01 15:11:00 36.05 kg/m2 [facility] Systolic blood pressure 2020-10-01 18:00:00 156 mm[Hg] [facility] Diastolic blood pressure 2020-10-01 18:00:00 77 mm[Hg] [facility] Heart rate 2020-10-01 18:00:00 54 /min [facility] Respiratory rate 2020-10-01 18:00:00 11 /min [facility] Oxygen saturation in Arterial blood by Pulse oximetry 2020-10-01 18:00:00 100 /min [facility] Body temperature 2020-10-01 16:42:00 36.72 [facility] Body weight 2020-10-01 15:11:00 95.255 kg [facility] BMI 2020-10-01 15:11:00 36.05 kg/m2 [facility] Procedures Procedure Date / Time Performed Performing Clinicia n Source CT ABDOMEN PELVIS W CONTRAST 2021-05-19 18:03:23 Joselin Mason [facility] COMP. METABOLIC PANEL ([id number]) 2021-05-19 17:07:00 Joselin Mason [facility] LIPASE 2021-05-19 17:07:00 [facility] 2021-05-19 17:07:00 [facility] RIBS 4+ VW RIGHT 2021-05-19 16:55:02 Joselin Mason [facility] CBC WITH DIFF 2021-05-19 16:31:00 [facility] 2021-05-19 16:31:00 Joselin Mason Un [facility] NOTICE OF PRIVACY PRACTICES 2021-05-19 15:50:33 Doctor Unassigned, [place] [facility] CONSENT/REFUSAL FOR DIAGNOSIS AND TREATMENT 2021-05-19 15:40:35 Doctor Unassigned, [place] [facility] TROPONIN I 2020-10-01 17:06:00 Samson García [facility] XR CHEST 1 VW 2020-10-01 15:32:00 Samson García [facility] LIPASE 2020-10-01 15:19:00 Samson García [facility] MAGNESIUM 2020-10-01 15:19:00 Samson García [facility] TROPONIN I 2020-10-01 15:19:00 Samson García [facility] COMP. METABOLIC PANEL ([id number]) 2020-10-01 15:19:00 Samson García [facility] CBC WITH DIFF 2020-10-01 15:19:00 Samson García [facility] N-TERMINAL PRO-BNP 2020-10-01 15:19:00 Samson García [facility] Encounters Start Date/Time End Date/Time Encounter Type Admission Type Attending Clinicians Care Facility Care Department Encounter ID Source 2021-08-26 10:35:38 Emergency [facility] [id number] [facility] 2021-08-24 09:33:31 Emergency [facility] [id number] [facility] 2021-05-31 09:24:58 2021-05-31 09:44:58 Laboratory Only Lab, Adc Fam Urielb Lois Pereira [facility] [address] .114 350.1.13.10 [id number] [id number] [facility] 2021-05-31 09:20:00 2021-05-31 09:20:00 Outpatient R [facility] [id number] [facility] 2021-05-31 00:00:00 2021-05-31 00:00:00 Letter (Out) Doctor Unassigned, [place] [facility] 1.114 350.1.13.10 4.2.7.2.686 [id number] [facility] 2021-05-31 00:00:00 2021-05-31 00:00:00 Telephone Nini Mckenzie [facility] . 350.1.13.10 4.2.7.2.686 [id number] [facility] 2021-05-19 10:52:00 2021-05-19 14:30:00 Emergency Joselin Mason [facility] 1.114 350.1.13.10 4.2.7.2.686 [id number] 2021-05-19 10:52:00 2021-05-19 14:30:00 Emergency Joselin Mason [facility] [id number] 350.1.13.10 4.2.7.2.686 [id number] [facility] 2020-10-10 00:00:00 2020-10-10 00:00:00 Outpatient R RADIOLOGY [facility] [id number] [facility] 2020-10-01 09:08:00 2020-10-01 12:24:00 Emergency [facility] [id number] 350.1.13.10 4.2.7.2.686 [id number] 2020-10-01 09:08:00 2020-10-01 12:24:00 Emergency [facility] [id number] 4.2.7.2.686 [id number] [facility] Results Test Description Test Time Test Comments [...] the pelvis. No acute osseousabnormality is demonstrated. Rimb, Radiant Results Inft User - 05/19/2021 1:21 [...] indicated.3. A fibroid uterus is present.RL: [id number]. METABOLIC PANEL ([id number])2021-05-19 17:56:56* Test Item Value Reference Range Interpretation Comme nts NA (test code = 0982173264) 138 mmol/L 135-145 K (test code = 2354019651) 3.8 mmol/L 3.5-5.0 CL (test code = 1656197210) 105 mmol/L 98-108 CO2 TOTAL (test code = 4206101536) 26 mmol/L 23-31 AGAP (test code = 8566666063) 2-16 BUN (test code = 6914880962) 17 mg/dL 7-23 GLUCOSE (test code = 0393238242) 118 mg/dL 70-110 H CREATININE (test code = 0119705753) 0.49 mg/dL 0.50-1.04 L TOTAL BILI (test code = 7916083847) 0.7 mg/dL 0.1-1.1 CALCIUM (test code = 4183717702) 9.6 mg/dL 8.6-10.6 T PROTEIN (test code = 9761048885) 7.5 g/dL 6.3-8.2 ALBUMIN (test code = 1573598882) 4.0 g/dL 3.5-5.0 ALK PHOS (test code = 0711834483) 98 U/L 34-122 ALTv (test code = 1742-6) 21 U/L 5-35 AST(SGOT) (test code = 3530756549) 25 U/L 13-40 eGFR (test code = 2763791398) mL/min/1.73m2 BON (test code = BON) Association [...] imaging tests). Lab Interpretation (test code = 10252-3) [facility] 17:56:35* Test Item Value Reference Range Interpretation Comme nts LIPASE (test code = 6600743163) 91 U/L 0-220 Lab Interpretation (test cod e = 42554-2) [facility] 17:48:44* Test Item Value Reference Range Interpretation Comme nts APPEARANCE (test code = 5229191461) Hazy Clear A COLOR (test code = 5484285332) Yellow Yellow PH (test code = 5850321172) 4.8-8.0 SP GRAVITY (test code = 1534173497) 1.003-1.030 GLU U QUAL (test code = 4663859136) Normal Normal BLOOD (test code = 7051708586) Negative Negative KETONES (test code = 4628588335) Negative Negative PROTEIN (test code = 2887-8) Negative Negative UROBILIN (test code = 8063963830) 4.0 mg/dL Normal A BILIRUBIN (test code = 1387817646) 2 mg/dL Negative A NITRITE (test code = 1468502340) Negative Negative LEUK CHRISTIANE (test code = 7566428141) Negative Negative RBC/HPF (test code = 6023337650) See_Comment [Automated [employer]] The system which generated this result transmitted reference range: 0 - 3 HPF. The reference range was not used to interpret this result as normal/abnormal. WBC/HPF (test code = 4165677409) <1 See_Comment [Automated [employer]] The system which generated this result transmitted reference range: 0 - 5 HPF. The reference range was not used to interpret this result as normal/abnormal. BACTERIA (test code = 1197580240) Negative Negative MUCOUS (test code = 5281714873) Slight Negative LPF A SQ EPITH (test code = 9986529597) HPF Ictotest (test code = 8965544121) Positive Lab Interpretation (test code = 16291-6) [facility]+ VW [id number] 17:30:551. No acute cardiopulmonary disease. 2. No displaced right rib fractures. RL: 518 AFC: 84893 End ofreport ORDERING PHYSICIAN: JOSELIN MASON CLINICAL [...] disease.2. No displaced right rib fractures.RL: 518AFC: 10041Tjd of report [facility] WITH [id number] 16:39:11* Test Item Value Reference Range Interpretation [...] 32.4 g/dL 31.6-35.1 RDW-SD (test code = 67278-0) 39.7 fL 39.0-49.9 RDW-CV (test code = 788-0) 13.0 % 12.0-15.5 PLT (test code = 777-3) See_Comment [Automated messa ge] The system which generated this result transmitted reference range: 166 - 358 10*3/?L. The reference range was not used to interpret this result as normal/abnormal. MPV (test code = 35750-0) 9.0 fL 9.5-12.9 L NRBC/100 WBC (test code = 8363385547) See_Comment [Automated [employer] ssage] The system which generated this result transmitted reference range: 0.0 - 10.0 /100 WBCs. The reference range was not used to interpret this result as normal/abnormal. NRBC x10^3 (test code = 9264993400) <0.01 See_Comment [Automated messa ge] The system which generated this result transmitted reference range: 10*3/?L. The reference range was not used to interpret this result as normal/abnormal. GRAN MAT (NEUT) % (test code = 770-8) 62.1 % IMM GRAN % (test code = 9620615463) 0.30 % LYMPH % (test code = 736-9) 25.0 % MONO % (test code = 5905-5) 9.1 % EOS % (test code = 713-8) 2.8 % BASO % (test code = 706-2) 0.7 % GRAN MAT x10^3(ANC) (test code = 5004415396) 3.76 10*3/uL 1.88-7.09 IMM GRAN x10^3 (test code = 3171265278) <0.03 0.00-0.06 LYMPH x10^3 (test code = 731-0) 1.51 10*3/uL 1.32-3.29 MONO x10^3 (test code = 742-7) 0.55 10*3/uL 0.33-0.92 EOS x10^3 (test code = 711-2) 0.17 10*3/uL 0.03-0.39 BASO x10^3 (test code = 704-7) 0.04 10*3/uL 0.01-0.07 Lab Interpretation (test code = 10936-4) Abnormal [facility] [id number] 17:50:00* Test Item Value Reference Range Interpretation Comme nts TROPONIN I (test code = 8904718059) <0.012 See_Comment [Automated message] The system which [...] biotin. ? Lab Interpretation (test code = 26039-5) [facility] 1 [id number] 16:10:49Impression: Clear lungs. Elevated right hemidiaphragm.Exam: XR [...] abnormality. Degenerative changes of spines are noted. Rimb, Radiant Results Inft User - 10/01/2020 10:11 [...] are noted. IMPRESSIONImpression: Clear lungs. Elevated right hemidiaphragm.[facility] TROPONIN [id number] 15:50:00* Test Item Value Reference Range Interpretation Comme nts TROPONIN I (test code = 2276461431) <0.012 See_Comment [Automated message] The system which generated this result transmitted reference range: <=0.034 ng/mL. The reference range was not used to interpret this result as normal/abnormal. OBN (test code = BON) Equal or Less [...] biotin. ? Lab Interpretation (test code = 17476-3) Normal [facility] [id number] 15:48:00* Test Item Value Reference Range Interpretation Comme nts NT-proBNP (test code = 9904053385) 73 pg/mL See_Comment [Automated message] The system which generated this result transmitted reference range: <=125. The reference range was not used to interpret this result as normal/abnormal. BON (test code = BON) Biotin has been reported to cause a negative bias, interpret results relative to patient's use of biotin. Lab Interpretation (test code = 30291-2) [facility] METABOLIC PANEL (52384)2020-10-01 15:39:00* Test Item Value Reference Range Interpretation Comme nts NA (test code = 6029618866) 141 mmol/L 135-145 K (test code = 9583329430) 3.5 mmol/L 3.5-5 CL (test code = 7749586892) 106 mmol/L 98-108 CO2 TOTAL (test code = 3835511573) 26 mmol/L 23-31 AGAP (test code = 0547226878) 2-16 BUN (test code = 8652733268) 21 mg/dL 7-23 GLUCOSE (test code = 2218551945) 154 mg/dL 70-110 H CREATININE (test code = 6886008580) 0.64 mg/dL 0.5-1.04 TOTAL BILI (test code = 1879578852) 0.7 mg/dL 0.1-1.1 CALCIUM (test code = 2765227065) 9.6 mg/dL 8.6-10.6 T PROTEIN (test code = 3718468572) 7.8 g/dL 6.3-8.2 ALBUMIN (test code = 8832383117) 4.2 g/dL 3.5-5 ALK PHOS (test code = 3939830371) 77 U/L 34-122 ALTv (test code = 1742-6) 22 U/L 5-35 AST(SGOT) (test code = 5013959269) 19 U/L 13-40 eGFR Calculation (Non-) (test code = 7333984264) mL/min/1.73m2 eGFR Calculation () (test code = 6597516332) mL/min/1.73m2 BON (test code = BON) Association [...] imaging tests). Lab Interpretation (test code = 28244-2) [facility]2020-[facility]-07 15:39:00* Test Item Value Reference Range Interpretation Comme nts MAGNESIUM (test code = 9173001012) 2.0 mg/dL 1.7-2.4 Lab Interpretation (test cod e = 90500-8) [facility]07 15:38:00* Test Item Value Reference Range Interpretation Comme nts LIPASE (test code = 8353473062) 70 U/L 0-220 Lab Interpretation (test cod e = 56011-5) [facility] WITH [id number] 15:26:00* Test Item Value Reference Range Interpretation Comme nts WBC (test code = 6690-2) See_Comment [Automated [employer]] The system which generated this result transmitted reference range: 4.30 - 11.10 10*3/?L. The reference range was not used to interpret this result as normal/abnormal. RBC (test code = 789-8) See_Comment H [Automated [employer]] The system which generated this result [...] 32.7 g/dL 31.6-35.1 RDW-SD (test code = 84643-2) 38.5 fL 39-49.9 L RDW-CV (test code = 788-0) 12.7 % 12-15.5 PLT (test code = 777-3) See_Comment [Automated messa ge] The system which generated this result transmitted reference range: 166 - 358 10*3/?L. The reference range was not used to interpret this result as normal/abnormal. MPV (test code = 57577-9) 8.9 fL 9.5-12.9 L NRBC/100 WBC (test code = 2284443837) See_Comment [Automated [employer] ssage] The system which generated this result transmitted reference range: 0.0 - 10.0 /100 WBCs. The reference range was not used to interpret this result as normal/abnormal. NRBC x10^3 (test code = 1950914125) <0.01 See_Comment [Automated messa ge] The system which generated this result transmitted reference range: 10*3/?L. The reference range was not used to interpret this result as normal/abnormal. GRAN MAT (NEUT) % (test code = 770-8) 71.7 % IMM GRAN % (test code = 3116687333) 1.20 % LYMPH % (test code = 736-9) 20.7 % MONO % (test code = 5905-5) 5.5 % EOS % (test code = 713-8) 0.3 % BASO % (test code = 706-2) 0.6 % GRAN MAT x10^3(ANC) (test code = 9752303359) 6.22 10*3/uL 1.88-7.09 IMM GRAN x10^3 (test code = 8943986155) 0.10 10*3/uL 0-0.06 H LYMPH x10^3 (test code = 731-0) 1.80 10*3/uL 1.32-3.29 MONO x10^3 (test code = 742-7) 0.48 10*3/uL 0.33-0.92 EOS x10^3 (test code = 711-2) 0.03 10*3/uL 0.03-0.39 BASO x10^3 (test code = 704-7) 0.05 10*3/uL 0.01-0.07 Lab Interpretation (test code = 45998-6) Abnormal [facility]"
--- NOTE | 2024-01-11 08:26 | ER ---
Nurse's Notes [facility] Name: Alda Paz Age: 58 yrs Sex: Female : 1965 Arrival Date: 01/11/2024 Time: 07:02 Bed 8 Private MD: George Briceño Diagnosis: Urticaria, unspecified Presentation: 01/10 07:15 Chief complaint: Patient states: russell ear swelling and has a knot on back of head, iw started last week, she has been on steroids and benadryl and changed her BP meds. Coronavirus screen: At this time, the client does not indicate any symptoms associated with coronavirus-19. Ebola Screen: Patient negative for fever greater than or equal to 101.5 degrees Fahrenheit, and additional compatible Ebola Virus Disease symptoms Patient denies exposure to infectious person. Patient denies travel to an Ebola-affected area in the 21 days before illness onset. No symptoms or risks identified at this time. Initial Sepsis Screen: Does the patient meet any 2 criteria? No. Patient's initial sepsis screen is negative. Does the patient have a suspected source of infection? No. Patient's initial sepsis screen is negative. Risk Assessment: Do you want to hurt yourself or someone else? Patient reports no desire to harm self or others. Onset of symptoms was January 03, 2024. 07:15 Method Of Arrival: Ambulatory iw 07:15 Acuity: KATIE 3 iw Historical: - Allergies: 07:17 Aspirin; iw - PMHx: 07:17 Hypertension; iw - PSHx: 07:17 R shoulder SX; Tonsillectomy; iw - Immunization history:: Adult Immunizations not up to date. - Social history:: Smoking status: Patient denies any tobacco usage or history of. Screenin:55 [facility] ED Fall Risk Assessment (Adult) History of falling in the last 3 months, ko1 including since admission No falls in past 3 months (0 pts) Confusion or Disorientation No (0 pts) Intoxicated or Sedated No (0 pts) Impaired Gait No (0 pts) Mobility Assist Device Used No (0 pt) Altered Elimination No (0 pt) Score/Fall Risk Level 0 - 2 = Low Risk Oriented to surroundings, Maintained a safe environment, Educated pt \T\ family on fall prevention, incl call for assistance when getting out of bed, Assessed \T\ reinforced patient's understanding of fall precautions, Provided non-skid footwear, Hourly rounding (assess needs \T\ fall precautionary measures) done, Used ambulatory aids as needed (educated on \T\ assisted with), Used gait belt as appropriate. Abuse screen: Denies threats or abuse. Denies injuries from another. Nutritional screening: No deficits noted. Tuberculosis screening: No symptoms or risk factors identified. Assessment: 07:55 General: Appears in no apparent distress. Behavior is calm, cooperative, appropriate ko1 for age. Pain:. Neuro: No deficits noted. Cardiovascular: No deficits noted. Respiratory: No deficits noted. GI: No deficits noted. : No deficits noted. EENT: Reports pain in right ear and left ear. Derm: No deficits noted. Musculoskeletal: No deficits noted. Vital Signs: 07:15 BP 157 / 93; Pulse 83; Resp 16; Temp 97; Pulse Ox 97% on R/A; Weight 95.25 kg; Height 5 iw ft. 2 in. ; 08:42 BP 148 / 90; Pulse 78; Resp 15; Temp 98(O); Pulse Ox 99% ; ko1 07:15 Body Mass Index 38.41 (95.25 kg, 157.48 cm) iw ED Course: 07:05 Patient arrived in ED. rg4 07:06 None, None is Private Physician. rg4 07:06 George Briceño MD is Private Physician. rg4 07:17 Triage completed. iw 07:17 Arm band placed on. iw 07:20 Brennan Elena, CECELIA is Primary Nurse. ll1 07:20 Temo Rios DO is Attending Physician. ms3 07:31 Temo Rios DO is Attending Physician. ll1 07:31 Jacqueline Crawley, CECELIA is Primary Nurse. ko1 07:55 Patient has correct armband on for positive identification. Allergy band placed. Bed in ko1 low position. Call light in reach. Side rails up X 1. Provided Education on: na. Pulse ox on. NIBP on. Door closed. Noise minimized. 07:55 No provider procedures requiring assistance completed. Patient did not have IV access ko1 during this emergency room visit. 08:25 George Briceño MD is Referral Physician. ms3 08:26 Marquez Krishnamurthy MD is Referral Physician. ms3 Administered Medications: 07:42 Drug: diphenhydrAMINE PO 50 mg PO once Route: PO; ko1 08:42 Follow up: Response: No adverse reaction ko1 07:42 Drug: Famotidine PO 20 mg PO once Route: PO; ko1 08:42 Follow up: Response: No adverse reaction ko1 07:42 Drug: predniSONE PO 60 mg PO once Route: PO; ko1 08:42 Follow up: Response: No adverse reaction ko1 Medication: 07:55 VIS not applicable for this client. ko1 Outcome: 08:26 Discharge ordered by . ms3 08:42 Discharged to home ambulatory, ko1 08:42 Condition: stable 08:42 Discharge instructions given to patient, Instructed on discharge instructions, follow up and referral plans. medication usage, Demonstrated understanding of instructions, follow-up care, medications, Prescriptions given X 3, 08:46 Patient left the ED. ko1 Signatures: Alda Marquez RN RN Trena Yao rg4 Brennan Elena RN RN ll1 Temo Rios DO DO ms3 Jacqueline Crawley RN RN ko1
--- NOTE | 2024-01-11 08:26 | EDPHYS ---
Physician Documentation [facility] Name: Alda Paz Age: 58 yrs Sex: Female : 1965 Arrival Date: 01/11/2024 Time: 07:02 Bed 8 Private MD: George Briceño ED Physician Temo Rios HPI: 01/10 08:27 This 58 yrs old Female presents to ER via Ambulatory with complaints of Ear ms3 Pain, Swelling of Ear. 08:27 58-year-old female with past medical history of hypertension presents to the emergency ms3 department for bilateral earlobe swelling, itching, swelling of the right hand. Patient states she has had 3 ED visits starting on January 03, 2024. Patient notes she was hospitalized for the symptoms and placed on telemetry and then discharged. Patient denies any alleviating or inciting factors. Historical: - Allergies: 07:17 Aspirin; iw - PMHx: 07:17 Hypertension; iw - PSHx: 07:17 R shoulder SX; Tonsillectomy; iw - Immunization history:: Adult Immunizations not up to date. - Social history:: Smoking status: Patient denies any tobacco usage or history of. ROS: 08:27 Constitutional: Negative for fever, and chills. ms3 08:27 ENT: Positive for Earlobe swelling, 08:27 Skin: Positive for Urticaria, Exam: 08:27 Constitutional: This is a well developed, well nourished patient who is awake, alert, ms3 and in no acute distress. Head/Face: Normocephalic, atraumatic. Neck: Trachea midline, no cervical lymphadenopathy. Supple, full range of motion without nuchal rigidity, or vertebral point tenderness. No Meningismus. Chest/axilla: Normal chest wall appearance and motion. Nontender with no deformity. Cardiovascular: Regular rate and rhythm with a normal S1 and S2. No gallops, murmurs, or rubs. Normal PMI, no JVD. No pulse deficits. Respiratory: Lungs have equal breath sounds bilaterally, clear to auscultation and percussion. No rales, rhonchi or wheezes noted. No increased work of breathing, no retractions or nasal flaring. Abdomen/GI: Soft, non-tender, with normal bowel sounds. No distension or tympany. No guarding or rebound. No evidence of tenderness throughout. 08:27 Head/face: Urticaria right posterior scalp. 08:27 ENT: Bilateral earlobe swelling. Vital Signs: 07:15 BP 157 / 93; Pulse 83; Resp 16; Temp 97; Pulse Ox 97% on R/A; Weight 95.25 kg; Height 5 iw ft. 2 in. ; 08:42 BP 148 / 90; Pulse 78; Resp 15; Temp 98(O); Pulse Ox 99% ; ko1 07:15 Body Mass Index 38.41 (95.25 kg, 157.48 cm) iw MDM: 07:31 Patient medically screened. ms3 08:27 Differential diagnosis: Idiopathic urticaria versus allergic reaction. Data reviewed: ms3 vital signs, nurses notes, and as a result, I will discharge patient. I considered the following discharge prescriptions or medication management in the emergency department Medications were administered in the Emergency Department. See MAR. Care significantly affected by the following chronic conditions: Hypertension. Counseling: I had a detailed discussion with the patient and/or guardian regarding the historical points, exam findings, and any diagnostic results supporting the discharge/admit diagnosis, the need for outpatient follow up, to return to the emergency department if symptoms worsen or persist or if there are any questions or concerns that arise at home. Special discussion: I discussed with the patient/guardian in detail that at this point there is no indication for admission to the hospital. It is understood, however, that if the symptoms persist or worsen the patient needs to return immediately for re-evaluation. ED course: Discussed physical exam findings with patient. Patient symptoms have improved since arrival to the emergency department, patient is alert and oriented x 4, no apparent distress, nontoxic-appearing, speaking full sentences. Patient to follow-up with Dr. Krishnamurthy in 2 to 3 days. Patient understands and agrees with plan. All questions were answered. Return precautions discussed include worsening symptoms, or any other concerns. Administered Medications: 07:42 Drug: diphenhydrAMINE PO 50 mg PO once Route: PO; ko1 08:42 Follow up: Response: No adverse reaction ko1 07:42 Drug: Famotidine PO 20 mg PO once Route: PO; ko1 08:42 Follow up: Response: No adverse reaction ko1 07:42 Drug: predniSONE PO 60 mg PO once Route: PO; ko1 08:42 Follow up: Response: No adverse reaction ko1 Disposition Summary: 01/11/24 08:26 Discharge Ordered Notes: Location: Home ms3 Condition: Stable ms3 Diagnosis - Urticaria, unspecified ms3 Followup: ms3 - With: George Briceño MD - When: 2 - 3 days - Reason: Re-evaluation by your physician Followup: ms3 - With: Marquez Krishnamurthy MD - When: 2 - 3 days - Reason: Recheck today's complaints Discharge Instructions: - Discharge Summary Sheet ms3 - Hives ms3 Forms: - Medication Reconciliation Form ms3 - Thank You Letter ms3 - Antibiotic Education ms3 - Prescription Opioid Use ms3 - Patient Portal Instructions ms3 - Leadership Thank You Letter ms3 Prescriptions: - Hydroxyzine HCl 25 mg Oral Tablet - take 1 tablet ORAL route every 6 hours As needed; 30 tablet; Refills: 0, ms3 Product Selection Permitted - Pepcid 20 mg Oral Tablet - take 1 tablet ORAL route every 12 hours for 10 days; 20 tablet; Refills: 0, ms3 Product Selection Permitted - Prednisone 20 mg Oral Tablet - take 2 tablets ORAL route once daily for 5 days; 10 tablet; Refills: 0, Product ms3 Selection Permitted Signatures: Alda Marquez, RN RN Temo Lu DO DO ms3 Jacqueline Crawley, CECELIA RN ko1
[2024-01-11 09:08] VITALS: BP 148/90; TEMP 98; O2SAT 99
== END ==
LOC: ER 07:02
DX: L50.9 Urticaria, unspecified (principal); R22.9 Localized swelling, mass and lump, unspecified; I10 Essential (primary) hypertension; Z88.6 Allergy status to analgesic agent
CPT/HCPCS: 99284; J7512

== ENCOUNTER 2024-06-13 01:04 | Emergency (ER) | payer OTHER, SELFPAY ==
[2024-06-13] MEDS ORDERED: DIPHENHYDRAMINE 50 MG/ML VIAL ONE (01:34)
[2024-06-13] MEDS ORDERED: METHYLPREDNISOLONE 125 MG INJ ONE (01:34)
[2024-06-13] MEDS ORDERED: ACETAMINOPHEN 325 MG TABLET ONE (01:34)
[2024-06-13 02:16] LABS: SARS-CoV-2 Antigen CONTROL BLUE LINE VIS/BG OK; SARS-CoV-2 Antigen Rapid Res Positive (Negative)
[2024-06-13] MEDS ORDERED: IBUPROFEN 400 MG TAB ONE (02:45)
--- NOTE | 2024-06-13 03:46 | ER ---
Nurse's Notes [facility] Name: Alda Paz Age: 58 yrs Sex: Female : 1965 Arrival Date: 06/13/2024 Time: 01:04 Bed 18 Private MD: Diagnosis: SARS-associated coronavirus as the cause of diseases classified elsewhere Presentation: 06/13 01:15 Chief complaint: Patient states: Fever, sore throat, headache with scalp, facial pain pc2 and swelling since last night. Coronavirus screen: Client presents with at least one sign or symptom that may indicate coronavirus-19. Standard/surgical mask placed on the client. Ebola Screen: No symptoms or risks identified at this time. Initial Sepsis Screen: Does the patient meet any 2 criteria? Temp <36.0*C (96.8*F)) or > 38.3*C (100.9*F). HR > 90 bpm. Yes Does the patient have a suspected source of infection? No. Patient's initial sepsis screen is negative. 01:15 Method Of Arrival: Ambulatory pc2 01:15 Risk Assessment: Do you want to hurt yourself or someone else? Patient reports no pc2 desire to harm self or others. Onset of symptoms was June 11, 2024. 01:15 Acuity: KATIE 3 pc2 Triage Assessment: 03:57 Pain: Also complains of. rg5 Historical: - Allergies: 01:15 Aspirin; pc2 - Home Meds: 01:15 lisinopril 10 mg Oral tab 1 tab once daily [Active]; pc2 - PMHx: 01:15 Hypertension; pc2 - PSHx: 01:15 R shoulder SX; Tonsillectomy; pc2 - Immunization history:: Adult Immunizations unknown. - Infectious Disease History:: Denies. - Family history:: not pertinent. - Hospitalizations: : No recent hospitalization is reported. - Social history:: Smoking status: unknown. Screenin:53 [facility] ED Fall Risk Assessment (Adult) History of falling in the last 3 months, pc2 including since admission No falls in past 3 months (0 pts) Confusion or Disorientation No (0 pts) Intoxicated or Sedated No (0 pts) Impaired Gait No (0 pts) Mobility Assist Device Used No (0 pt) Altered Elimination No (0 pt) Score/Fall Risk Level 0 - 2 = Low Risk Oriented to surroundings, Maintained a safe environment. Abuse screen: Denies threats or abuse. Denies injuries from another. Nutritional screening: No deficits noted. Tuberculosis screening: No symptoms or risk factors identified. Assessment: 01:40 General: Appears in no apparent distress. uncomfortable, obese, Behavior is pc2 cooperative, appropriate for age, anxious. Pain: Complains of pain in forehead Pain currently is 10 out of 10 on a pain scale. Neuro: Level of Consciousness is awake, alert, obeys commands, Oriented to person, place, time, situation, Reports headache in entire. Cardiovascular: Denies chest pain, Patient's skin is warm and dry. Rhythm is sinus tachycardia. Respiratory: Airway is patent Respiratory effort is even, unlabored, Respiratory pattern is regular, symmetrical. GI: Abdomen is round non-distended. : No signs and/or symptoms were reported regarding the genitourinary system. EENT: No signs and/or symptoms were reported regarding the EENT system. Derm: Reports increased pain in face w/ hx of swelling. Musculoskeletal: Circulation, motion, and sensation intact. 03:45 Reassessment: Patient is alert, oriented x 3, equal unlabored respirations, skin rg5 warm/dry/pink. Patient states feeling better. Vital Signs: 01:10 BP 195 / 127; Pulse 133; Resp 20; Temp 102.5(O); Pulse Ox 95% ; Weight 102.06 kg; pc2 Height 5 ft. 2 in. ; Pain 10/10; 01:45 BP 188 / 116; Pulse 130; Resp 20; Pulse Ox 95% on R/A; pc2 02:56 BP 174 / 93; Pulse 124; Resp 18; Pulse Ox 94% on R/A; pc2 03:09 BP 172 / 91; Pulse 123; Resp 18; Temp 99.1(O); Pulse Ox 95% on R/A; pc2 01:10 Body Mass Index 41.15 (102.06 kg, 157.48 cm) pc2 01:10 Pain Scale: Adult pc2 ED Course: 01:05 Patient arrived in ED. jj6 01:05 Daniel Hickman MD is Attending Physician. rn 01:36 Delores Pringle, RN is Primary Nurse. pc2 01:40 Patient has correct armband on for positive identification. Bed in low position. Call pc2 light in reach. Side rails up X2. Provided Education on: POC and time frame. 01:40 Arm band placed on left wrist. pc2 01:45 Inserted saline lock: 20 gauge in right hand, using aseptic technique. Flushed with 10 pc2 mL NS. 01:52 Strep Sent. pc2 01:52 Flu Sent. pc2 01:52 SARS RAPID Sent. pc2 02:27 Triage completed. pc2 02:30 No provider procedures requiring assistance completed. pc2 03:58 IV discontinued. rg5 Administered Medications: 01:52 Drug: diphenhydrAMINE IVP 25 mg IVP once Route: IVP; Site: right hand; pc2 02:30 Follow up: Response: No adverse reaction pc2 01:52 Drug: MethylPrednisoLONE IVP 125 mg IVP once Route: IVP; Site: right hand; pc2 02:30 Follow up: Response: No adverse reaction pc2 01:52 Drug: Acetaminophen PO 650 mg PO once Route: PO; pc2 02:30 Follow up: Response: No adverse reaction pc2 02:45 Drug: Ibuprofen PO 800 mg PO once Route: PO; pc2 03:50 Follow up: Response: No adverse reaction rg5 Medication: 02:30 VIS not applicable for this client. pc2 Outcome: 03:45 Discharge ordered by . rn 03:58 Discharged to home ambulatory, rg5 03:58 Condition: stable 03:58 Discharge instructions given to patient, family, Instructed on discharge instructions, follow up and referral plans. Demonstrated understanding of instructions, follow-up care, medications, Prescriptions given X 2, 03:58 Patient left the ED. rg5 Signatures: Daniel Hickman MD MD rn Jeffries, Jennifer jj6 Derek Mariano RN RN rg5 Delores Pringle, RN RN pc2 Corrections: (The following items were deleted from the chart) 02:28 01:10 BP 195 / 127; Pulse 133bpm; Resp 22bpm; Pulse Ox 95%; Temp 102.5F Oral; 102.06 pc2 kg; Height 5 ft. 2 in.; BMI: 41.1; Pain 10, Adult; pc2
--- NOTE | 2024-06-13 03:46 | EDPHYS ---
Physician Documentation [facility] Name: Alda Paz Age: 58 yrs Sex: Female : 1965 Arrival Date: 06/13/2024 Time: 01:04 Bed 18 Private MD: ED Physician Daniel Hickman HPI: 06/13 01:17 This 58 yrs old Female presents to ER via Unassigned with complaints of Facial rn Swelling, Headache, Sore Throat. 01:17 The patient complains of pain to the forehead. rn 01:17 The patient presents with sore throat. The patient describes throat pain as scratchy. rn Onset: The symptoms/episode began/occurred just prior to arrival. Severity of symptoms: At their worst the symptoms were moderate, in the emergency department the symptoms are unchanged. Modifying factors: The symptoms are alleviated by nothing, the symptoms are aggravated by swallowing. The patient has experienced similar episodes in the past. Patient reports headache, sore throat, subjective facial swelling, subjective fever and chills that began last night. Has happened before and she states has been told has atypical allergic reactions. Denies trauma. No new medication or exposure. Denies rash. No sick contacts. No chest pain or shortness of breath. No abdominal pain. No focal neurological deficit.. Historical: - Allergies: 01:15 Aspirin; pc2 - Home Meds: 01:15 lisinopril 10 mg Oral tab 1 tab once daily [Active]; pc2 - PMHx: 01:15 Hypertension; pc2 - PSHx: 01:15 R shoulder SX; Tonsillectomy; pc2 - Immunization history:: Adult Immunizations unknown. - Infectious Disease History:: Denies. - Family history:: not pertinent. - Hospitalizations: : No recent hospitalization is reported. - Social history:: Smoking status: unknown. ROS: 01:17 Constitutional: Positive for subjective fever and chills ENT: Positive for sore throat rn Neck: Negative for injury, pain, and swelling, Cardiovascular: Negative for chest pain, palpitations, and edema, Respiratory: Negative for shortness of breath, cough, wheezing, and pleuritic chest pain, Abdomen/GI: Negative for abdominal pain, nausea, vomiting, diarrhea, and constipation, MS/Extremity: Negative for injury and deformity, Neuro: Positive for headache and generalized weakness with malaise Exam: 01:17 Constitutional: This is a well developed, well nourished patient who is awake, alert, rn hyperventilating and appears very anxious Head/Face: Normocephalic, atraumatic. ENT: Dry mucous membranes, no stridor Neck: Trachea midline, no masses palpated, and no cervical lymphadenopathy. Supple, full range of motion without nuchal rigidity, or vertebral point tenderness. No Meningismus. Cardiovascular: Regular rate and rhythm. No pulse deficits. Respiratory: Mild tachypnea, no wheezing, no retractions Abdomen/GI: Soft, non-tender Skin: No rashes MS/ Extremity: Pulses equal, no cyanosis. Neurovascular intact. Full, normal range of motion. Equal circumference. Neuro: Awake and alert, GCS 15 Vital Signs: 01:10 BP 195 / 127; Pulse 133; Resp 20; Temp 102.5(O); Pulse Ox 95% ; Weight 102.06 kg; pc2 Height 5 ft. 2 in. ; Pain 10/10; 01:45 BP 188 / 116; Pulse 130; Resp 20; Pulse Ox 95% on R/A; pc2 02:56 BP 174 / 93; Pulse 124; Resp 18; Pulse Ox 94% on R/A; pc2 03:09 BP 172 / 91; Pulse 123; Resp 18; Temp 99.1(O); Pulse Ox 95% on R/A; pc2 01:10 Body Mass Index 41.15 (102.06 kg, 157.48 cm) pc2 01:10 Pain Scale: Adult pc2 MDM: 01:05 Patient medically screened. rn 03:42 Differential diagnosis: group A strep tonsillitis, laryngitis, pharyngitis, viral rn syndrome. Data reviewed: vital signs, nurses notes, lab test result(s), and as a result, I will discharge patient. Counseling: I had a detailed discussion with the patient and/or guardian regarding the historical points, exam findings, and any diagnostic results supporting the discharge/admit diagnosis, lab results, the need for outpatient follow up, to return to the emergency department if symptoms worsen or persist or if there are any questions or concerns that arise at home. Special discussion: I discussed with the patient/guardian in detail that at this point there is no indication for admission to the hospital. It is understood, however, that if the symptoms persist or worsen the patient needs to return immediately for re-evaluation. 08/19 01:15 Order name: SARS RAPID; Complete Time: 02:20 rn 06/13 01:15 Order name: Flu; Complete Time: 02:27 rn 06/13 01:15 Order name: Strep; Complete Time: 02:27 rn 06/13 02:28 Order name: Throat Culture EDMS 06/13 01:15 Order name: IV Start; Complete Time: 01:52 rn Administered Medications: 01:52 Drug: diphenhydrAMINE IVP 25 mg IVP once Route: IVP; Site: right hand; pc2 02:30 Follow up: Response: No adverse reaction pc2 01:52 Drug: MethylPrednisoLONE IVP 125 mg IVP once Route: IVP; Site: right hand; pc2 02:30 Follow up: Response: No adverse reaction pc2 01:52 Drug: Acetaminophen PO 650 mg PO once Route: PO; pc2 02:30 Follow up: Response: No adverse reaction pc2 02:45 Drug: Ibuprofen PO 800 mg PO once Route: PO; pc2 03:50 Follow up: Response: No adverse reaction rg5 Disposition Summary: 06/13/24 03:45 Discharge Ordered Notes: Location: Home rn Problem: new rn Symptoms: have improved rn Condition: Stable rn Diagnosis - SARS-associated coronavirus as the cause of diseases classified elsewhere rn Followup: rn - With: Private Physician - When: As needed - Reason: Recheck today's complaints, Re-evaluation by your physician Discharge Instructions: - Discharge Summary Sheet rn - COVID-19 rn - Viral Illness, Adult rn Forms: - Medication Reconciliation Form rn - Antibiotic employee health rn - Prescription Opioid Use rn - Patient Portal Instructions rn - Leadership Thank You Letter rn Prescriptions: - Paxlovid 300 mg (150 mg x 2)-100 mg Oral Tablet, Dose Pack - take 1 dose pack ORAL route per package directions; 1 packet; Refills: 0, rn Product Selection Permitted - Prednisone 20 mg Oral Tablet - take 3 tablets ORAL route once daily for 5 days; 15 tablet; Refills: 0, Product rn Selection Permitted Signatures: Dispatcher [employer] EDDaniel Duncan MD MD rn Coleman, Pam, RN RN Derek Glover RN rg5 Corrections: (The following items were deleted from the chart) 01:15 01:15 SARS-COV-2 Antigen Rapid+I.LAB.BRZ ordered. EDMS EDMS 01:15 01:15 Influenza Screen (A \T\ B)+BA.LAB.BRZ ordered. EDMS EDMS 01:15 01:15 Group A Streptococcus Rapid Sc+BA.LAB.BRZ ordered. EDMS EDMS
[2024-06-13 04:26] VITALS: BP 172/91; TEMP 99.1; O2SAT 95
--- OUTSIDE RECORDS SUMMARY | 2024-06-14 13:30 | XMS REPORT | Continuity of Care Document ---
Author Name Unknown Address [address] [facility]. [address] [place] [address] [facility] Address [address] [facility] [address] [place] [address] Care Team Providers Care Slip Cover Operator Name Role Phone KERON SCHNEIDER Primary Care Physician Unavailab JOSE JUAN Solis Attending Clinician Unavailable SHILPI JOHNSON Attending Clinician Unavailable Shilpi Johnson MD Attending Clinician [phone] Attending Clinician Unavailable Lab, Adc Fam Pob I Attending Clinician Unavailab Lois Coleman Attending Clinician [phone] Doctor Unassigned, [place] Attending Clinician U Nini Reeves MD Attending Clinician [phone] Joselin Serna Attending Clinician RADIOLOGY Attending Clinician Unavailable Samson García DO Attending Clinician [phone] Payers Payer Name Policy Type Policy Number Effective Date Expirati on Date Source TML GBRP CLAIMS [id number] 2019 00:00:00 [facility] TRENT TRIANA COPAY FOCUS 9 [id number] 2024 00:00:00 Problems Condition Name Condition Details Condition Category Status Onset Date Resolution Date Last Treatment Date Treating Clinician Comments Source No known active problems No known active problems Disease [facility] Allergies, Adverse Reactions, Alerts Allergy Name Allergy Type Status Severity Reaction(s) Onset Date Inactive Date Treating Clinician Comments Source ASPIRIN DRUG INGREDI Active Hives 05-10 00:00: 00 [facility] Aspirin Propensi ty to adverse reaction s Active Hives 05-10 00:00: 00 Able to take ibuprofen and naproxen without reaction [facility] Calcium Acetylsa licylate Propensi ty to adverse reaction s Active Hives 05-10 00:00: 00 Able to take ibuprofen and naproxen without reaction Ira Chacon - Externa l Social History Social Habit Start Date Stop Date Quantity Comments Source [facility] Exposure to SARS-CoV-2 (event) Not sure [facility] acute hospital Tobacco use and exposure 2024-02-01 00:00:00 2024-02-01 00:00:00 Smokeless tobacco non-user Ira Chacon - External Alcoholic beverage intake 2024-02-01 00:00:00 2024-02-01 00:00:00 Lifetime non-drinker (finding) Ira Chacon - External History of Social function 2024-02-01 00:00:00 2024-02-01 00:00:00 Ira Chacon - External Sex assigned at 1965 00:00:00 1965 00:00:00 Ira Chacon - External Smoking Status Start Date Stop Date Source Never smoked tobacco Ira Chacon - External Tobacco smoking consumption unknown [facility] Medications Ordered Medication Name Filled Medication Name Start Date Stop Date Current Medication? Ordering Clinician Indication Dosage Frequency Signature (SIG) Comments Components Source famotidine (PEPCID AC) tablet 20 mg 02-09 13:30: 00 02-09 14:34 :00 No 20mg 20 mg, Oral, ONCE, 1 dose, On Thu02/10/24 at 0830, GORAN [facility] diphenhydrA MINE (BENADRYL) tablet 25 mg 02-09 13:30: 00 02-09 14:34 :00 No 25mg 25 mg, Oral, ONCE, 1 dose, [facility]02/10/24 [facility] 0830[facility] dexamethaso ne sod phos PF injection 8 mg 02-09 13:30: 00 02-09 14:33 :00 No 8mg 8 mg, Intramuscu lar, ONCE, 1 dose, On Thu02/10/24 at 0830, [facility] methylPREDN ISolone 4 mg tablets 02-09 00:00: 00 Yes [id number] Take by mouth SEE-INSTRU CTIONS. follow package directions [facility] Famotidine (Pepcid) 20 MG oral tablet 01-31 10:33: 08 Yes 20mg Take 1 tablet (20 mg total) by mouth 2 times daily. Ira varghese Cetirizine HCl (ZYRTEC OR) 01-31 10:32: 23 01-31 00:00 :00 No Take by mouth. Ira varghese Cetirizine (ZyrTEC Allergy) 10 MG oral Tablet 01-31 00:00: 00 Yes [id number] 10mg Take 1 tablet (10 mg total) by mouth 2 times daily. Ira varghese EPINEPHrine (EPIPEN 2-EBER) 0.3 MG/0.3 ML IJ SOAJ 01-31 00:00: 00 Yes [id number] .3mg Inject 0.3 mL (0.3 mg total) into the muscle as needed for anaphylaxi s. Ira varghese Losartan Potassium 25 MG oral Tablet 16 00:00: 00 Yes 25mg Take 1 tablet (25 mg total) by mouth daily. Ira varghese predniSONE (DELTASONE) 20 MG oral tablet 10 00:00: 00 Yes 20mg Take 1 tablet (20 mg total) by mouth as needed. Ira varghese hydrOXYzine HCl 10 MG oral Tablet 09 00:00: 00 Yes 10mg Q.25D Take 1 tablet (10 mg total) by mouth every 6 hours as needed. Ira Seybold - Externa l ondansetron (ZOFRAN (PF)) injection 4 mg 05-19 19:45: 00 05-19 18:39 :00 No 4mg 4 mg, Slow IV Push, ONCE, 1 dose, 05/19/21 at 1445, GORAN [facility] morpHINE injection 2 mg 05-19 19:45: 00 05-19 18:39 :00 No 2mg 2 mg, Slow IV Push, ONCE, 1 dose, 05/19/21 at 1445, STAT [facility] iopamidol (ISOVUE 370-500 mL) injection 120 mL 05-19 17:53: 00 05-19 17:50 :00 No [id number] 120mL 120 mL, Intravenou s, ONCE, 1 dose, Tamms 05/19/21 at 1315, Routine [facility] HYDROcodone -acetaminop hen (NORCO 5) 5-325 mg tablet 1 tablet 05-19 17:15: 00 05-19 16:30 :00 No 1{tbl} 1 tablet, Oral, ONCE, 1 dose, Tamms 05/19/21 at 1215, GORAN [facility] traMADoL 50 mg tablet 05-19 00:00: 00 05-25 04:59 :00 No [id number] 50mg Take 1 tablet by mouth every 6 (six) hours as needed for Pain (scale 7-10) for up to 5 days. Indication s: acute pain [facility] naproxen sodium (ANAPROX DS) 550 mg tablet 2019-10 00:00: 00 Yes [id number] 550mg Take 1 tablet by mouth 2 (two) times daily with meals. [facility] methylPREDN ISolone (MEDROL, EBER,) 4 mg tablets 2019-10 00:00: 00 02-09 00:00 :00 No [id number] Take by mouth SEE-INSTRU CTIONS. follow package directions [facility] methocarbam oL 500 mg tablet 2019-10 00:00: 00 10-07 05:59 :00 No [id number] 500mg Take 1 tablet by mouth 3 (three) times daily for 5 days. [facility] ibuprofen 600 mg tablet 01-30 00:00: 00 Yes 600mg Take 1 tablet by mouth every 8 (eight) hours as needed (only use if Tylenol does not help). [facility] Vital Signs Vital Name Observation Time Observation Value Comments Corbin sterling Systolic blood pressure 2024-02-10 15:30:00 145 mm[Hg] [facility] Diastolic blood pressure 2024-02-10 15:30:00 85 mm[Hg] [facility] Heart rate 2024-02-10 15:30:00 90 /min [facility] Respiratory rate 2024-02-10 15:30:00 18 /min [facility] Oxygen saturation in Arterial blood by Pulse oximetry 2024-02-10 15:30:00 100 /min [facility] Body temperature 2024-02-10 12:53:00 37 Kellie [facility] Body height 2024-02-10 12:53:00 157.5 cm [facility] Body weight 2024-02-10 12:53:00 97.523 kg [facility] BMI 2024-02-10 12:53:00 39.32 kg/m2 [facility] Systolic blood pressure 2024-02-01 15:37:00 187 mm[Hg] Ira Mathewo ld - External Diastolic blood pressure 2024-02-01 15:37:00 120 mm[Hg] Ira Mathewo ld - External Heart rate 2024-02-01 15:35:00 76 /min Mario y Seybold - External Body temperature 2024-02-01 15:35:00 37.11 Kellie Ira Seybold - External Respiratory rate 2024-02-01 15:35:00 19 /min Ira Solerybold - External Body height 2024-02-01 15:35:00 157.5 cm Mary hein Seybold - External Body weight 2024-02-01 15:35:00 99.519 kg Mary ey Seybold - External BMI 2024-02-01 15:35:00 40.13 kg/m2 Mary Mathewjerry - External Oxygen saturation in Arterial blood by Pulse oximetry 2024-02-01 15:35:00 97 /min Ira Hill ld - External Systolic blood pressure 2021-05-19 18:10:00 173 mm[Hg] [facility] Diastolic blood pressure 2021-05-19 18:10:00 92 mm[Hg] [facility] Heart rate 2021-05-19 18:10:00 59 /min [facility] Respiratory rate 2021-05-19 18:10:00 21 /min [facility] Oxygen saturation in Arterial blood by Pulse oximetry 2021-05-19 18:10:00 94 /min [facility] Body temperature 2021-05-19 16:32:34 36.5 Kellie [facility] Body height 2021-05-19 16:01:00 157.5 cm [facility] Body weight 2021-05-19 16:01:00 95.255 kg [facility] BMI 2021-05-19 16:01:00 38.41 kg/m2 [facility] Systolic blood pressure 2021-05-19 18:10:00 173 mm[Hg] [facility] Diastolic blood pressure 2021-05-19 18:10:00 92 mm[Hg] [facility] Heart rate 2021-05-19 18:10:00 59 /min [facility] Respiratory rate 2021-05-19 18:10:00 21 /min [facility] Oxygen saturation in Arterial blood by Pulse oximetry 2021-05-19 18:10:00 94 /min [facility] Body temperature 2021-05-19 16:32:34 36.5 Kellie [facility] Body height 2021-05-19 16:01:00 157.5 cm [facility] Body weight 2021-05-19 16:01:00 95.255 kg [facility] BMI 2021-05-19 16:01:00 38.41 kg/m2 [facility] Systolic blood pressure 2020-10-01 18:00:00 156 mm[Hg] [facility] Diastolic blood pressure 2020-10-01 18:00:00 77 mm[Hg] [facility] Heart rate 2020-10-01 18:00:00 54 /min [facility] Respiratory rate 2020-10-01 18:00:00 11 /min [facility] Oxygen saturation in Arterial blood by Pulse oximetry 2020-10-01 18:00:00 100 /min [facility] Body temperature 2020-10-01 16:42:00 36.72 [facility] Body weight 2020-10-01 15:11:00 95.255 kg [facility] BMI 2020-10-01 15:11:00 36.05 kg/m2 [facility] Systolic blood pressure 2020-10-01 18:00:00 156 mm[Hg] [facility] Diastolic blood pressure 2020-10-01 18:00:00 77 mm[Hg] [facility] Heart rate 2020-10-01 18:00:00 54 /min [facility] Respiratory rate 2020-10-01 18:00:00 11 /min [facility] Oxygen saturation in Arterial blood by Pulse oximetry 2020-10-01 18:00:00 100 /min [facility] Body temperature 2020-10-01 16:42:00 36.72 [facility] Body weight 2020-10-01 15:11:00 95.255 kg [facility] BMI 2020-10-01 15:11:00 36.05 kg/m2 [facility] Procedures Procedure Date / Time Performed Performing Clinicia n Source CT ABDOMEN PELVIS W CONTRAST 2021-05-19 18:03:23 Joselin Mason [facility] COMP. METABOLIC PANEL (34396) 2021-05-19 17:07:00 Joselin Mason [facility] LIPASE 2021-05-19 17:07:00 Joselin Mason Un [facility] TROPONIN I 2021-05-19 17:07:00 Joselin Mason Un [facility] XR RIBS 4+ VW RIGHT 2021-05-19 16:55:02 Joselin Mason [facility] CBC WITH DIFF 2021-05-19 16:31:00 [facility] 2021-05-19 16:31:00 [facility] NOTICE OF PRIVACY PRACTICES 2021-05-19 15:50:33 Doctor Unassigned, [place] [facility] CONSENT/REFUSAL FOR DIAGNOSIS AND TREATMENT 2021-05-19 15:40:35 Doctor Unassigned, [place] [facility] TROPONIN I 2020-10-01 17:06:00 Samson García [facility] XR CHEST 1 VW 2020-10-01 15:32:00 Samson García [facility] LIPASE 2020-10-01 15:19:00 aSmson García [facility] MAGNESIUM 2020-10-01 15:19:00 Samson Garc[facility] TROPONIN I 2020-10-01 15:19:00 Samson Garc[facility] COMP. METABOLIC PANEL (17903) 2020-10-01 15:19:00 Singer Samson [facility] CBC WITH DIFF 2020-10-01 15:19:00 Singer Samson [facility] N-TERMINAL PRO-BNP 2020-10-01 15:19:00 Singer [facility] Encounters Start Date/Time End Date/Time Encounter Type Admission Type Attending [facility] Care Facility Care Department Encounter ID Source 2021-08-26 10:35:38 Emergency [facility] [id number] [facility] 2021-08-24 09:33:31 Emergency [facility] [id number] [facility] 2024-03-08 15:00:00 2024-03-08 15:00:00 Outpatient JOSE JUAN RAZO [id number] Ira Chacon 2024-02-10 07:55:00 2024-02-10 10:42:00 Emergency X SHILPI JOHNSON [facility] ERT [id number] [facility] 2024-02-10 07:55:00 2024-02-10 10:42:00 Emergency Shilpi Johnson [facility] 1.0.114 350.1.13.10 4.2.7.2.686 [id number] [facility] 2024-02-01 11:45:00 2024-02-01 11:45:00 Outpatient LAB57 IRA IRA [id number] Ira [facility] 2024-02-01 11:00:00 2024-02-01 11:00:00 Outpatient NI, JOSE JUAN IRA WATT [id number] [facility] 2021-05-31 09:24:58 2021-05-31 09:44:58 Laboratory Only Lab, [facility] Urielb Lois Preeira [facility] [address] 1.0.114 350.1.13.10 4.2.7.2.686 [id number] [facility] 2021-05-31 09:20:00 2021-05-31 09:20:00 Outpatient R [facility] [id number] [facility] 2021-05-31 00:00:00 2021-05-31 00:00:00 Letter (Out) Doctor Unassigned, [place] [facility] 1.840.114 350.1.13.10 4.2.7.2.686 [id number] [facility] 2021-05-31 00:00:00 2021-05-31 00:00:00 Telephone Nini Mckenzie [facility] [address] ..114 350.1.13.10 4.2.7.2.686 [id number] [facility] 2021-05-19 10:52:00 2021-05-19 14:30:00 Emergency Joselin Mason [facility] 1.0.114 350.1.13.10 4.2.7.2.686 [id number] [facility] 2021-05-19 10:52:00 2021-05-19 14:30:00 Emergency Joselin Mason [facility] [id number] 350.1.13.10 4.2.7.2.686 [id number] 2020-10-10 00:00:00 2020-10-10 00:00:00 Outpatient R RADIOLOGY [facility] [id number] [facility] 2020-10-01 09:08:00 2020-10-01 12:24:00 Emergency Singer [facility] 1.2.840.114 350.1.13.10 4.2.7.2.686 [id number] [facility] 2020-10-01 09:08:00 2020-10-01 12:24:00 Emergency Singer [facility] [id number] 350.1.13.10 4.2.7.2.686 [id number] [id number] Results Test Description Test Time Test Comments [...] indicated.3. A fibroid uterus is present.RL: 2831 [facility]. METABOLIC PANEL (26333)2021-05-19 17:56:56* Test Item Value Reference Range Interpretation Comme nts NA (test code = 7590514100) 138 mmol/L 135-145 K (test code = 4036434396) 3.8 mmol/L 3.5-5.0 CL (test code = 4439085686) 105 mmol/L 98-108 CO2 TOTAL (test code = 2829708687) 26 mmol/L 23-31 AGAP (test code = 6806808325) 2-16 BUN (test code = 8241113378) 17 mg/dL 7-23 GLUCOSE (test code = 7014083264) 118 mg/dL 70-110 H CREATININE (test code = 9800804552) 0.49 mg/dL 0.50-1.04 L TOTAL BILI (test code = 0705462407) 0.7 mg/dL 0.1-1.1 CALCIUM (test code = 2647550145) 9.6 mg/dL 8.6-10.6 T PROTEIN (test code = 6867130911) 7.5 g/dL 6.3-8.2 ALBUMIN (test code = 2775203289) 4.0 g/dL 3.5-5.0 ALK PHOS (test code = 6324632753) 98 U/L 34-122 ALTv (test code = 1742-6) 21 U/L 5-35 AST(SGOT) (test code = 3252760307) 25 U/L 13-40 eGFR (test code = 6900980298) mL/min/1.73m2 BON (test code = BON) Association [...] imaging tests). Lab Interpretation (test code = 71496-6) [facility] 17[facility]56:35* Test Item Value Reference Range Interpretation Comme nts LIPASE (test code = 6935399730) 91 U/L 0-220 Lab Interpretation (test cod e = 39538-0) Normal [facility] 17:48:44* Test Item Value Reference Range Interpretation Comme nts APPEARANCE (test code = 8664608687) Hazy Clear A COLOR (test code = 9090375251) Yellow Yellow PH (test code = 0271108547) 4.8-8.0 SP GRAVITY (test code = 1437689401) 1.003-1.030 GLU U QUAL (test code = 2944111695) Normal Normal BLOOD (test code = 6797507085) Negative Negative KETONES (test code = 7245180687) Negative Negative PROTEIN (test code = 2887-8) Negative Negative UROBILIN (test code = 3920924825) 4.0 mg/dL Normal A BILIRUBIN (test code = 6141278798) 2 mg/dL Negative A NITRITE (test code = 3871332531) Negative Negative LEUK CHRISTIANE (test code = 6687077873) Negative Negative RBC/HPF (test code = 3270587478) See_Comment [Automated [employer] ge] The system which generated this result transmitted reference range: 0 - 3 HPF. The reference range was not used to interpret this result as normal/abnormal. WBC/HPF (test code = 3645117926) <1 See_Comment [Automated [employer] ge] The system which generated this result transmitted reference range: 0 - 5 HPF. The reference range was not used to interpret this result as normal/abnormal. BACTERIA (test code = 6101682831) Negative Negative MUCOUS (test code = 3614191075) Slight Negative LPF A SQ EPITH (test code = 9013566305) HPF Ictotest (test code = 9666217449) Positive Lab Interpretation (test code = 80495-0) [facility]normal [facility]+ VW [id number] 17:30:551. No acute cardiopulmonary disease. 2. No displaced right rib fractures. RL: 518 AFC: 83654 End ofreport ORDERING PHYSICIAN: JOSELIN MASON CLINICAL [...] tortuous. There are no displaced rib fractures. Ut, Radiant ResultsInft User - 05/19/2021 12:31 PM [...] disease.2. No displaced right rib fractures.RL: 518AFC: 47301Prg of report [facility] WITH [id number] 16:39:11* Test Item Value Reference Range Interpretation [...] 32.4 g/dL 31.6-35.1 RDW-SD (test code = 84780-6) 39.7 fL 39.0-49.9 RDW-CV (test code = 788-0) 13.0 % 12.0-15.5 PLT (test code = 777-3) See_Comment [Automated messa ge] The system which generated this result transmitted reference range: 166 - 358 10*3/?L. The reference range was not used to interpret this result as normal/abnormal. MPV (test code = 58569-2) 9.0 fL 9.5-12.9 L NRBC/100 WBC (test code = 2876240921) See_Comment [Automated [employer] ssage] The system which generated this result transmitted reference range: 0.0 - 10.0 /100 WBCs. The reference range was not used to interpret this result as normal/abnormal. NRBC x10^3 (test code = 7587268681) <0.01 See_Comment [Automated messa ge] The system which generated this result transmitted reference range: 10*3/?L. The reference range was not used to interpret this result as normal/abnormal. GRAN MAT (NEUT) % (test code = 770-8) 62.1 % IMM GRAN % (test code = 6238122476) 0.30 % LYMPH % (test code = 736-9) 25.0 % MONO % (test code = 5905-5) 9.1 % EOS % (test code = 713-8) 2.8 % BASO % (test code = 706-2) 0.7 % GRAN MAT x10^3(ANC) (test code = 1794498007) 3.76 10*3/uL 1.88-7.09 IMM GRAN x10^3 (test code = 3933608700) <0.03 0.00-0.06 LYMPH x10^3 (test code = 731-0) 1.51 10*3/uL 1.32-3.29 MONO x10^3 (test code = 742-7) 0.55 10*3/uL 0.33-0.92 EOS x10^3 (test code = 711-2) 0.17 10*3/uL 0.03-0.39 BASO x10^3 (test code = 704-7) 0.04 10*3/uL 0.01-0.07 Lab Interpretation (test code = 37851-9) Abnormal [facility] [id number] 17:50:00* Test Item Value Reference Range Interpretation Comme nts TROPONIN I (test code = 1128106309) <0.012 See_Comment [Automated message] The system which [...] biotin. ? Lab Interpretation (test code = 60150-3) Normal [facility] 1 [id number] 16:10:49Impression: Clear lungs. Elevated right hemidiaphragm.Exam: XR [...] abnormality. Degenerative changes of spines are noted. [facility], Radiant Results Inft User - 10/01/2020 10:11 [...] are noted. IMPRESSIONImpression: Clear lungs. Elevated right hemidiaphragm.[facility] TROPONIN [id number] 15:50:00* Test Item Value Reference Range Interpretation Comme nts TROPONIN I (test code = 0183935800) <0.012 See_Comment [Automated message] The system which [...] biotin. ? Lab Interpretation (test code = 95386-6) Normal [facility] [id number] 15:48:00* Test Item Value Reference Range Interpretation Comme nts NT-proBNP (test code = 0016384048) 73 pg/mL See_Comment [Automated message] The system which generated this result transmitted reference range: <=125. The reference range was not used to interpret this result as normal/abnormal. BON (test code = BON) Biotin has been reported to cause a negative bias, interpret results relative to patient's use of biotin. Lab Interpretation (test code = 56989-3) Normal [facility]OL[facility] PANEL (93023)2020-10-01 15:39:00* Test Item Value Reference Range Interpretation Comme nts NA (test code = 5431621741) 141 mmol/L 135-145 K (test code = 7709354810) 3.5 mmol/L 3.5-5 CL (test code = 7849014354) 106 mmol/L 98-108 CO2 TOTAL (test code = 1037613154) 26 mmol/L 23-31 AGAP (test code = 4696818195) 2-16 BUN (test code = 5791670417) 21 mg/dL 7-23 GLUCOSE (test code = 3654418094) 154 mg/dL 70-110 H CREATININE (test code = 5649041228) 0.64 mg/dL 0.5-1.04 TOTAL BILI (test code = 9480427223) 0.7 mg/dL 0.1-1.1 CALCIUM (test code = 7114397705) 9.6 mg/dL 8.6-10.6 T PROTEIN (test code = 1124173595) 7.8 g/dL 6.3-8.2 ALBUMIN (test code = 0701445261) 4.2 g/dL 3.5-5 ALK PHOS (test code = 1758802075) 77 U/L 34-122 ALTv (test code = 1742-6) 22 U/L 5-35 AST(SGOT) (test code = 7434741336) 19 U/L 13-40 eGFR Calculation (Non-) (test code = 3804236354) mL/min/1.73m2 eGFR Calculation () (test code = 0504850246) mL/min/1.73m2 BON (test code = BON) Association [...] imaging tests). Lab Interpretation (test code = 79509-6) Abnormal [facility]2020-[facility]-07 15:39:00* Test Item Value Reference Range Interpretation Comme nts MAGNESIUM (test code = 1652782305) 2.0 mg/dL 1.7-2.4 Lab Interpretation (test cod e = 47126-0) Normal [facility] 15:38:00* Test Item Value Reference Range Interpretation Comme nts LIPASE (test code = 7570186817) 70 U/L 0-220 Lab Interpretation (test cod e = 04960-3) Normal [facility] WITH [id number] 15:26:00* Test Item Value Reference Range Interpretation Comme nts WBC (test code = 6690-2) See_Comment [Automated [employer]] The system which generated this result transmitted reference range: 4.30 - 11.10 10*3/?L. The reference range was not used to interpret this result as normal/abnormal. RBC (test code = 789-8) See_Comment H [Automated [employer]] The system which generated this result transmitted [...] 32.7 g/dL 31.6-35.1 RDW-SD (test code = 22783-7) 38.5 fL 39-49.9 L RDW-CV (test code = 788-0) 12.7 % 12-15.5 PLT (test code = 777-3) See_Comment [Automated messa ge] The system which generated this result transmitted reference range: 166 - 358 10*3/?L. The reference range was not used to interpret this result as normal/abnormal. MPV (test code = 86857-6) 8.9 fL 9.5-12.9 L NRBC/100 WBC (test code = 9735159306) See_Comment [Automated [employer] ssage] The system which generated this result transmitted reference range: 0.0 - 10.0 /100 WBCs. The reference range was not used to interpret this result as normal/abnormal. NRBC x10^3 (test code = 6314456408) <0.01 See_Comment [Automated messa ge] The system which generated this result transmitted reference range: 10*3/?L. The reference range was not used to interpret this result as normal/abnormal. GRAN MAT (NEUT) % (test code = 770-8) 71.7 % IMM GRAN % (test code = 6139864889) 1.20 % LYMPH % (test code = 736-9) 20.7 % MONO % (test code = 5905-5) 5.5 % EOS % (test code = 713-8) 0.3 % BASO % (test code = 706-2) 0.6 % GRAN MAT x10^3(ANC) (test code = 5064833108) 6.22 10*3/uL 1.88-7.09 IMM GRAN x10^3 (test code = 4163587567) 0.10 10*3/uL 0-0.06 H LYMPH x10^3 (test code = 731-0) 1.80 10*3/uL 1.32-3.29 MONO x10^3 (test code = 742-7) 0.48 10*3/uL 0.33-0.92 EOS x10^3 (test code = 711-2) 0.03 10*3/uL 0.03-0.39 BASO x10^3 (test code = 704-7) 0.05 10*3/uL 0.01-0.07 Lab Interpretation (test code = 24163-5) Abnormal [facility] Notes Date/Time Note Provider Source 2024-02-10 10:40:21 Patient dc home. Follow up with ENT. Verbalized under standing. Signed paper work. LT Gilberto Cárdenas RN [facility] 2024-02-10 10:35:00 Swelling in face has improved LT [facility] 2024-02-10 07:52:27 Pt arrived via private car with c/o having a hive like area to her body. States it started yesterday and she took 2 zyrtec. States she did not take her morris medication today. LT Mayra Spicer RN [facility] 2024-02-01 10:35:44 Chief Complaint Patient presents with Allergies T [facility]"
== END 2024-06-13 03:58 | disposition home or self-care (01) ==
LOC: ER 01:04
DX: U07.1 COVID-19 (principal); I10 Essential (primary) hypertension
CPT/HCPCS: 36415; 87070; 87081; 87804; 87811; J1200; J2919